=== PATIENT | male | born 1930 | race Caucasian/White ===

== ENCOUNTER 2017-06-18 22:25 | Inpatient (IN) | payer MEDICARE ==
[~2017-06-18] VITALS: Ht 157.5 cm; Wt 51.4 kg
--- NOTE | 2017-06-18 22:36 | PHYS DOC ---
Past History Past Medical History: Dementia Additional Past Medical Histor: Pulmonary HTN; Cardiac arrhythmia Social History Narrative: Born in [place] Social History Lives at [facility]) under the care of Johny Britt DO; Neurologist Mo Horn DO and Nailhead Setter Ashlyn Tom MD: Code status- DNR Adult General HPI HPI Patient is a 86 year old male who presents with increased agitation. He resides at [facility] with a diagnosis of dementia. Became more disruptive. Transferred here for geriatric psych evaluation and treatment. Review of Systems Review of Systems Unable to obtain secondary to dementia and limited verbal response Physical Exam Physical Exam Constitutional: Well developed, well nourished, no acute distress, non-toxic appearance. Yelling out monsyllablic words and yelling "hold it." HENT: Normocephalic, atraumatic, bilateral external ears normal, oropharynx moist, no oral exudates, nose normal. Eyes: PERRLA, EOMI, conjunctiva normal, no discharge. Neck: Normal range of motion, no tenderness, supple, no stridor. Cardiovascular:Heart rate regular rhythm, no murmur Lungs & Thorax: Bilateral breath sounds clear to auscultation Abdomen: Bowel sounds normal, soft, no tenderness, no masses, no pulsatile masses. Skin: Warm, dry, no erythema, no rash. Back: No tenderness, no CVA tenderness. Extremities: No tenderness, no cyanosis, no clubbing, ROM intact, no edema. Neurologic: Alert, normal motor function, normal sensory function, no focal deficits noted. Current Patient Data Vital Signs Laboratory Tests Test 06/18/17 22:49 White Blood Count 8.7 x10^3/uL (4.0-11.0) Red Blood Count 3.78 x10^6/uL (4.30-5.70) Hemoglobin 11.8 g/dL (13.0-17.5) Hematocrit 36.0 % (39.0-53.0) Mean Corpuscular Volume 95 fL (79-100) Mean Corpuscular Hemoglobin 31 pg (25-35) Mean Corpuscular Hemoglobin Concent 33 g/dL (31-37) Red Cell Distribution Width 15.2 % (11.5-14.5) Platelet Count 260 x10^3/uL (140-400) Neutrophils (%) (Auto) 73 % (31-73) Lymphocytes (%) (Auto) 19 % (24-48) Monocytes (%) (Auto) 7 % (0-9) Eosinophils (%) (Auto) 1 % (0-3) Basophils (%) (Auto) 1 % (0-3) Neutrophils # (Auto) 6.4 x10^3uL (1.8-7.7) Lymphocytes # (Auto) 1.6 x10^3/uL (1.0-4.8) Monocytes # (Auto) 0.6 x10^3/uL (0.0-1.1) Eosinophils # (Auto) 0.1 x10^3/uL (0.0-0.7) Basophils # (Auto) 0.0 x10^3/uL (0.0-0.2) Urine Collection Type Unknown Urine Color Yellow Urine Clarity Clear Urine pH 6.5 Urine Specific [place] 1.015 Urine Protein 30 mg/dl (NEG-TRACE) Urine Glucose (UA) Neg mg/dL (NEG) Urine Ketones (Stick) Neg mg/dL (NEG) Urine Blood Neg (NEG) Urine Nitrite Neg (NEG) Urine Bilirubin Neg (NEG) Urine Urobilinogen Dipstick 1 mg/dL (0.2 mg/dL) Urine Leukocyte Esterase Neg (NEG) Urine RBC 0 /HPF (0-2) Urine WBC 5-10 /HPF (0-4) Urine Squamous Epithelial Cells Occ /LPF Urine Bacteria Few /HPF (0-FEW) Sodium Level 144 mmol/L (136-145) Potassium Level 4.3 mmol/L (3.5-5.1) Chloride Level 108 mmol/L (98-107) Carbon Dioxide Level 27 mmol/L (21-32) Anion Gap 9 (6-14) Blood Urea Nitrogen 36 mg/dL (8-26) Creatinine 1.4 mg/dL (0.7-1.3) Estimated GFR (Cockcroft-Gault) 48.3 BUN/Creatinine Ratio 26 (6-20) Glucose Level 111 mg/dL (70-99) Calcium Level 8.9 mg/dL (8.5-10.1) Magnesium Level 2.3 mg/dL (1.8-2.4) Total Bilirubin 0.4 mg/dL (0.2-1.0) Aspartate Amino Transf (AST/SGOT) 16 U/L (15-37) Alanine Aminotransferase (ALT/SGPT) 20 U/L (16-63) Alkaline Phosphatase 72 U/L (46-116) Total Protein 6.7 g/dL (6.4-8.2) Albumin 3.4 g/dL (3.4-5.0) Albumin/Globulin Ratio 1.0 (1.0-1.7) EKG EKG EKG interpreted by myself at 2247 PM: accelerated junctional at rate 123. RBBB; non specific ST changes. No prior to compare to. Course & Med Decision Making Course & Med Decision Making Evaluated patient. Lab reviewed and cleared for admission Dragon Disclaimer Dragon Disclaimer This chart was dictated in whole or in part using Voice Recognition software in a busy, high-work load, and often noisy Emergency Department environment. It may contain unintended and wholly unrecognized errors or omissions. Departure Departure: Impression: Primary Impression: Disruptive behavior Additional Impression: Dementia Disposition: 09 ADMITTED INPATIENT Referrals: ZEN BRITT DO (PCP) Problem Qualifiers Additional Impression: Dementia Dementia type: unspecified type Dementia behavioral disturbance: with behavioral disturbance Qualified Codes: F03.91 - Unspecified dementia with behavioral disturbance DIANE BOTELLO MD Jun 18, 2017 22:36
--- NOTE | 2017-06-18 23:09 | EKG ---
[address] [address] Test Date: 2017-06-18 Test Time: 22:47:14 Pat Name: ASHLEY RIVERA Department: Room: Gender: M Educational Resource Coordinator: ADONIS : 1930 Requested By: DIANE BOTELLO Order Number: [id number] Reading MD: Darwin Rios Measurements Intervals [place] Rate: 123 P: OR: QRS: -58 QRSD: 124 T: 22 QT: 338 QTc: 490 Interpretive Statements JUNCTIONAL RHYTHM - TACHYCARDIA RBBB POSSIBLE FLUTTER Electronically Signed On 06-19-2017 9:24:35 CDT by Darwin Rios
[2017-06-18 23:13] LABS: BASO % 1 % (0-3); EOS # 0.1 x10^3/uL (0.0-0.7); EOS % 1 % (0-3); HEMOGLOBIN 11.8 g/dL (13.0-17.5); LYMPH # 1.6 x10^3/uL (1.0-4.8); LYMPH % 19 % (24-48); MEAN CORPUSCULAR HEMOGLOBIN 31 pg (25-35); MEAN CORPUSCULAR HGB CONC 33 g/dL (31-37); MEAN CORPUSCULAR VOLUME 95 fL (79-100); MONO # 0.6 x10^3/uL (0.0-1.1); MONO % 7 % (0-9); NEUT # 6.4 x10^3uL (1.8-7.7); NEUT % 73 % (31-73); PLATELET COUNT 260 x10^3/uL (140-400); RED BLOOD COUNT 3.78 x10^6/uL (4.30-5.70); RED CELL DISTRIBUTION WIDTH 15.2 % (11.5-14.5); WHITE BLOOD COUNT 8.7 x10^3/uL (4.0-11.0)
[2017-06-18 23:25] LABS: BACTERIA,URINE FEW /HPF (0-FEW); BILIRUBIN,URINE NEG (NEG); CLARITY,URINE CLEAR; COLOR,URINE YELLOW; GLUCOSE,URINE NEG (NEG); NITRITE,URINE NEG (NEG); RBC,URINE 0 /HPF (0-2); SQUAMOUS EPITHELIAL CELL,UR OCC /LPF; UROBILINOGEN,URINE 1 mg/dL (0.2 mg/dL)
[2017-06-18 23:27] LABS: ALBUMIN 3.4 g/dL (3.4-5.0); CALCIUM 8.9 mg/dL (8.5-10.1); CREATININE 1.4 mg/dL (0.7-1.3); GFR 48.3; MAGNESIUM 2.3 mg/dL (1.8-2.4); POTASSIUM 4.3 mmol/L (3.5-5.1); TOTAL BILIRUBIN 0.4 mg/dL (0.2-1.0); TOTAL PROTEIN 6.7 g/dL (6.4-8.2)
[2017-06-18] MEDS ORDERED: FLEC50TA PO (23:59)
[2017-06-18] MEDS ORDERED: QUET100T4 PO (23:59)
[2017-06-18] MEDS ORDERED: MEGE40TA PO (23:59)
[2017-06-18] MEDS ORDERED: MEMA28CA PO (23:59)
[2017-06-18] MEDS ORDERED: ACET325T9 PO (23:59)
[2017-06-18] MEDS ORDERED: DONE10TA61 PO (23:59)
[2017-06-18] MEDS ORDERED: MULT-638 PO (23:59)
[2017-06-18] MEDS ORDERED: FINA5TAB PO (23:59)
[2017-06-18] MEDS ORDERED: QUET25TA5 PO (23:59)
[2017-06-18] MEDS ORDERED: LORA0.5T96 PO ×2 (23:59)
[2017-06-18] MEDS ORDERED: MIRT15TA PO (23:59)
[2017-06-19] MEDS ORDERED: METHYL SALICYLATE/MENTHOL TOPICAL OINTMENT 29GM TUBE. TP PRN (00:30)
[2017-06-19] MEDS ORDERED: MAG HYDROX/AL HYDROX/SIMETH 30 ML ORAL.SUSP PO PRN (00:30)
[2017-06-19 00:55] VITALS: BP 137/79
[2017-06-19] MEDS: ACETAMINOPHEN 325 MG TABLET PO SCH ×5 (09:00→19:23)
[2017-06-19] MEDS: MULTIVITAMIN with MINERAL TABLET. PO SCH ×2 (09:00→10:14)
[2017-06-19] MEDS: FINASTERIDE 5 MG TABLET PO SCH (10:11)
[2017-06-19] MEDS: FLECAINIDE 50 MG TABLET. PO SCH ×2 (10:12→19:39)
[2017-06-19] MEDS: MEMANTINE 10 MG TABLET. PO SCH ×2 (10:13→19:23)
[2017-06-19] MEDS: LORazepam 0.5 MG TABLET PO SCH (10:13)
[2017-06-19] MEDS: QUEtiapine 25 MG TABLET. PO SCH ×2 (10:14→14:00)
[2017-06-19] MEDS: MEGESTROL 40 MG TABLET. PO SCH ×2 (10:14→19:23)
[2017-06-19 14:16] LABS: THYROID STIM HORMONE (TSH) 2.429 uIU/mL (0.358-3.740)
[2017-06-19 15:47] VITALS: BP 109/60
[2017-06-19 18:10] LABS: T3 TOTAL 73 ng/dL (71-180)
[2017-06-19] MEDS: QUEtiapine 100 MG TABLET. PO SCH (19:40)
[2017-06-19] MEDS: DONEPEZIL HCL 10 MG TABLET PO SCH (19:40)
[2017-06-19] MEDS: MIRTAZAPINE 15 MG TABLET PO SCH (19:40)
--- NOTE | 2017-06-19 19:44 | PDOC ---
Exam Evan Demential Exam: Evan Note: Please also refer to the separate dictated note~for this date of service dictated separately.~Patient seen individually. Discussed the patient with Nursing staff reviewed the chart.~Reviewed interim history and current functioning. Reviewed vital signs,~Labs/ Radiology~and current medications noted below. Continue current treatment with the changes noted in the dictated addendum note Assessment: Vital Signs: Vital Signs Date Time Temp Pulse Resp B/P (MAP) Pulse Ox O2 Delivery O2 Flow Rate FiO2 06/19/17 15:47 97.6 95 17 109/60 (76) 98 06/19/17 00:55 Room Air I&O Intake and Output 06/20/17 07:00 Intake Total 360 ml Balance 360 ml Intake Oral 360 ml Labs: Laboratory Tests Test 06/18/17 22:49 White Blood Count 8.7 x10^3/uL (4.0-11.0) Red Blood Count 3.78 x10^6/uL (4.30-5.70) L Hemoglobin 11.8 g/dL (13.0-17.5) L Hematocrit 36.0 % (39.0-53.0) L Mean Corpuscular Volume 95 fL (79-100) Mean Corpuscular Hemoglobin 31 pg (25-35) Mean Corpuscular Hemoglobin Concent 33 g/dL (31-37) Red Cell Distribution Width 15.2 % (11.5-14.5) H Platelet Count 260 x10^3/uL (140-400) Neutrophils (%) (Auto) 73 % (31-73) Lymphocytes (%) (Auto) 19 % (24-48) L Monocytes (%) (Auto) 7 % (0-9) Eosinophils (%) (Auto) 1 % (0-3) Basophils (%) (Auto) 1 % (0-3) Neutrophils # (Auto) 6.4 x10^3uL (1.8-7.7) Lymphocytes # (Auto) 1.6 x10^3/uL (1.0-4.8) Monocytes # (Auto) 0.6 x10^3/uL (0.0-1.1) Eosinophils # (Auto) 0.1 x10^3/uL (0.0-0.7) Basophils # (Auto) 0.0 x10^3/uL (0.0-0.2) Urine Collection Type Unknown Urine Color Yellow Urine Clarity Clear Urine pH 6.5 Urine Specific [place] 1.015 Urine Protein 30 mg/dl (NEG-TRACE) Urine Glucose (UA) Neg mg/dL (NEG) Urine Ketones (Stick) Neg mg/dL (NEG) Urine Blood Neg (NEG) Urine Nitrite Neg (NEG) Urine Bilirubin Neg (NEG) Urine Urobilinogen Dipstick 1 mg/dL (0.2 mg/dL) Urine Leukocyte Esterase Neg (NEG) Urine RBC 0 /HPF (0-2) Urine WBC 5-10 /HPF (0-4) Urine Squamous Epithelial Cells Occ /LPF Urine Bacteria Few /HPF (0-FEW) Sodium Level 144 mmol/L (136-145) Potassium Level 4.3 mmol/L (3.5-5.1) Chloride Level 108 mmol/L (98-107) H Carbon Dioxide Level 27 mmol/L (21-32) Anion Gap 9 (6-14) Blood Urea Nitrogen 36 mg/dL (8-26) H Creatinine 1.4 mg/dL (0.7-1.3) H Estimated GFR (Cockcroft-Gault) 48.3 BUN/Creatinine Ratio 26 (6-20) H Glucose Level 111 mg/dL (70-99) H Calcium Level 8.9 mg/dL (8.5-10.1) Magnesium Level 2.3 mg/dL (1.8-2.4) Iron Level 50 ug/dL (65-175) L Total Iron Binding Capacity 273 ug/dL (250-450) Iron Saturation 18 % (15-34) Total Bilirubin 0.4 mg/dL (0.2-1.0) Aspartate Amino Transferase (AST) 16 U/L (15-37) Alanine Aminotransferase (ALT) 20 U/L (16-63) Alkaline Phosphatase 72 U/L (46-116) Total Protein 6.7 g/dL (6.4-8.2) Albumin 3.4 g/dL (3.4-5.0) Albumin/Globulin Ratio 1.0 (1.0-1.7) Vitamin B12 Level 466 pg/mL (247-911) Thyroxine (T4) 5.0 ug/dL (4.5-12.0) Total Triiodothyronine (TT3) 73 ng/dL (71-180) RPR Titer Additional Testing Pending Current Medications: Meds: Current Medications Multi-Ingredient Ointment (Analgesic [place]) 1 talya PRN QID PRN TP MUSCLE PAIN; Start 06/19/17 at 00:30 Al Hydroxide/Mg Hydroxide (Mylanta Plus Xs) 15 ml PRN AFTMEALHC PRN PO DYSPEPSIA; Start 06/19/17 at 00:30 Magnesium Hydroxide (Milk Of Magnesia) 2,400 mg PRN QHS PRN PO CONSTIPATION; Start 06/19/17 at 00:30 Donepezil HCl (Aricept) 20 mg QHS PO ; Start 06/19/17 at 21:00 Lorazepam (Ativan) 0.5 mg DAILY PO Last administered on 06/19/17 10:13; Start 06/19/17 at 09:00 Lorazepam (Ativan) 0.5 mg PRN Q6HRS PRN PO ANXIETY / AGITATION; Start 06/19/17 at 00:30 Megestrol Acetate (Megace) 40 mg BID PO Last administered on 06/19/17 19:23; Start 06/19/17 at 09:00 Mirtazapine (Remeron) 15 mg QHS PO ; Start 06/19/17 at 21:00 Quetiapine Fumarate (SEROquel) 25 mg BID92 PO Last administered on 06/19/17 10 :14; Start 06/19/17 at 09:00 Quetiapine Fumarate (SEROquel) 100 mg QHS PO ; Start 06/19/17 at 21:00 Memantine (Namenda) 10 mg BID PO Last administered on 06/19/17 19:23; Start at 09:00 Acetaminophen (Tylenol) 650 mg TID PO Last administered on 06/19/17 19:23; Start 06/19/17 at 09:00 Finasteride (Proscar) 5 mg DAILY PO Last administered on 06/19/17 10:11; Start 06/19/17 at 09:00 Flecainide Acetate (Tambocor) 50 mg BID PO Last administered on 06/19/17 10:12 ; Start 06/19/17 at 09:00 Multivitamins/ Calcium (Thera-M Plus) 1 tab DAILY PO ; Start 06/19/17 at 09:00 Olanzapine (ZyPREXA ZYDIS) 2.5 mg PRN Q2HR PRN PO PSYCHOSIS; Start 06/19/17 at 18:30 Active Scripts Active Reported Seroquel (Quetiapine Fumarate) 100 Mg Tablet 100 Mg PO QHS Seroquel (Quetiapine Fumarate) 25 Mg Tablet 25 Mg PO BID92 Thera M Plus Tablet (Multivits,Ca,Minerals/Iron/FA) 1 Each Tablet 1 Tab PO DAILY Remeron (Mirtazapine) 15 Mg Tablet 15 Mg PO QHS Namenda Xr (Memantine Hcl) 28 Mg Cap.spr.24 28 Mg PO DAILY Flecainide Acetate 50 Mg Tablet 50 Mg PO BID Proscar (Finasteride) 5 Mg Tablet 5 Mg PO DAILY Aricept (Donepezil Hcl) 10 Mg Tablet 20 Mg PO QHS Ativan (Lorazepam) 0.5 Mg Tablet 0.5 Mg PO DAILY Ativan (Lorazepam) 0.5 Mg Tablet 0.5 Mg PO PRN Q6HRS PRN Megestrol Acetate 40 Mg Tablet 40 Mg PO BID Tylenol (Acetaminophen) 325 Mg Tablet 650 Mg PO TID Diagnosis: Problems: (1) Dementia (2) Disruptive behavior TONE SHABAZZ MD Jun 19, 2017 19:44
[2017-06-20 03:13] LABS: HEMOGLOBIN A1C 5.8 % (4.8-5.6)
--- NOTE | 2017-06-20 04:54 | CONS ---
DATE OF CONSULTATION: REASON FOR CONSULTATION: Medical management. HISTORY OF PRESENT ILLNESS: This is an 86-year-old male patient, a resident at [facility] who was referred [facility] on account of increased agitation. He is becoming more aggressive, disruptive in the background of dementia and was admitted for inpatient psychiatric stabilization. PAST MEDICAL HISTORY: Significant for benign prostatic hypertrophy, atrial fibrillation, hyperlipidemia, chronic kidney disease, pulmonary hypertension. PAST SURGICAL HISTORY: Unobtainable. FAMILY HISTORY: Unobtainable. SOCIAL HISTORY: Unobtainable except that he is a resident at [facility]. He apparently does not smoke, drink alcohol or use recreational drugs. ALLERGIES: HE IS ALLERGIC TO AMIODARONE. MEDICATIONS: He is currently on acetaminophen 650 mg 3 times a day, Aricept 20 mg at bedtime, finasteride, Proscar 5 mg once a day, flecainide acetate 50 mg twice a day, lorazepam 0.5 mg every 6 hours daily as scheduled. He is on Megace 40 mg p.o. b.i.d., Namenda XR 28 mg once a day, mirtazapine 15 mg at bedtime, multivitamin with mineral 1 tablet once a day, Seroquel 25 mg twice a day, and Seroquel 100 mg at bedtime. PHYSICAL EXAMINATION: GENERAL: On examining him, he was resting, slightly propped up in bed, in no apparent respiratory distress, cachectic with a body mass index of only 19.8, slightly pale, but no jaundice, cyanosis or thyromegaly. No jugular venous distension. No lower limb edema. VITAL SIGNS: His heart rate was 95, blood pressure was 109/60, temperature was 97.6, respiratory rate was 17 and oxygen saturation was 98%. HEAD: Showed normocephalic, atraumatic. NECK: Supple. HEART: Showed normal first and second heart sounds. No gallop, rub or murmur. CHEST: Clear to auscultation. No crepitation or rhonchi. ABDOMEN: Scaphoid, soft, nontender. NEUROLOGIC: He is demented without any obvious lateralizing sign. All his cranial nerves are intact. EXTREMITIES: He moves extremities without difficulty, ambulates without assistance or assistive devices. LABORATORY DATA: Showed a white cell count of 8700, hemoglobin 11.8, hematocrit 36, MCV 95 and platelet count 260,000. His serum sodium was 144, potassium 4.3, chloride 108, bicarbonate 27, anion gap of 9, BUN 36, creatinine 1.4, estimated GFR was 48 mL per minute. His glucose 111, calcium was 8.9, magnesium was 2.3. Serum iron 50, TIBC was 273 and percent saturation was 18%. Total bilirubin, AST, ALT, alkaline phosphatase were normal. Total protein was 6.7, albumin 3.4. His serum triglycerides were high at 217, cholesterol was 203, LDL was 122, VLDL was 43, HDL was 38 and the ratio was 5. His vitamin B12 was 566 picogram per mL and TSH was 2.429. Urinalysis showed the urine was yellow, clear with a pH of 6.5, specific gravity of 1.015, with a trace of protein. The urine was negative for glucose, ketones, blood, nitrite, bilirubin and leukocyte esterase. There was only 5-10 wbc, very few bacteria. IMPRESSION: In summary, this is an 86-year-old male patient, a resident at [facility] who was admitted with increasing aggressive behavior, getting agitated, disruptive in the background of dementia and who was admitted here for inpatient psychiatric stabilization. He has multiple medical problems including benign prostatic hypertrophy, cardiac arrhythmia, chronic kidney disease, hyperlipidemia. His vital signs are all stable as well as his lab work and all in all medically he seemed to be stable. I will obviously continue with all his current medication. I will review all the lab work that are still pending at the time of this dictation and make any necessary recommendation. Thank you, Dr. Downing for allowing me to participate in the care of this patient. LILI VALLE MD DR: BLAISE/alex JOB#: [id number] / [id number]
[2017-06-20] MEDS: ACETAMINOPHEN 325 MG TABLET PO SCH ×3 (09:36→19:23)
[2017-06-20] MEDS: FINASTERIDE 5 MG TABLET PO SCH (09:36)
[2017-06-20] MEDS: MULTIVITAMIN with MINERAL TABLET. PO SCH (09:36)
[2017-06-20] MEDS: MEGESTROL 40 MG TABLET. PO SCH ×2 (09:36→19:21)
[2017-06-20] MEDS: MEMANTINE 10 MG TABLET. PO SCH ×2 (09:36→19:20)
[2017-06-20] MEDS: QUEtiapine 25 MG TABLET. PO SCH ×2 (09:36→14:00)
[2017-06-20] MEDS: LORazepam 0.5 MG TABLET PO SCH (09:36)
[2017-06-20 09:44] VITALS: BP 114/67
[2017-06-20] MEDS: FLECAINIDE 50 MG TABLET. PO SCH ×2 (09:45→20:05)
--- NOTE | 2017-06-20 11:09 | HP ---
ADMIT DATE: 06/19/2017 This is a late entry for date of service 06/19/2017 and covers elements not covered in my initial note of 06/19/2017: The patient was seen individually evening of 06/19/2017 for this evaluation. Discussed with nursing staff, reviewed the chart and previously I discussed with nursing staff on two separate occasions after we received the referral from [facility] referring the patient for inpatient psychiatric care for his agitation, aggression, confusion within the context of his dementia. He was referred by his primary care physician, Dr. Jsoe Booth. IDENTIFYING DATA: As stated, the patient is an 86-year-old male, referred to us from [facility] by Dr. Jose Booth, his primary care physician on account of increased agitation, confusion, hitting staff. Reportedly, the patient is oriented x 1, resistive with care, threatening other peers. He recently failed an inpatient psychiatric hospitalization at [facility], but the family was not happy with his care there, did not want him returning there, therefore referred to us for inpatient psychiatric stabilization. CHIEF COMPLAINT: "No" The patient is not verbally interactive at all, quite confused, lying in bed, oriented just to himself, irritable, striking out at staff shortly prior to my visit with him. HISTORY OF PRESENT ILLNESS: The patient has a history of dementia, Alzheimer's vascular type. He has been residing at [facility] some time, more recently getting increasingly agitated, aggressive, disruptive, psychotic, both with peers and staff. He has had sleep and appetite changes. He was hospitalized at [facility], reportedly Seroquel was adjusted, but he has failed all of this, thus resulting in this referral back to us. No clear history of bipolar disorder, suicidal or homicidal ideation. PAST PSYCHIATRIC HISTORY: Major neurocognitive disorder, Alzheimer, vascular with depression, delusion, behavioral disturbance; anxiety disorder, unspecified; impulse control disorder, unspecified. PAST MEDICAL HISTORY: Hypertension, BPH, cardiac dysrhythmia, pacemaker in place, diabetes mellitus, skin cancer, orthostatic hypotension. PAST SURGICAL HISTORY: TURP. DIET: Regular. CODE STATUS: DNR. ALLERGIES: AMIODARONE. CURRENT PSYCHOTROPICS: Remeron 15 mg at bedtime, Ativan 0.5 mg daily p.r.n. q. 6 hours, Aricept 20 mg a day, Namenda 10 mg b.i.d., Seroquel 25 mg b.i.d. and 100 mg at bedtime, Megace 40 mg daily. FAMILY HISTORY: Noncontributory. SOCIAL HISTORY: No alcohol, drug abuse, physical, sexual or elder abuse history is noted. Not known to be a perpetrator. Reaction to hospitalization, the patient oblivious of this asset, stable living at the above facility, reasonably healthy given his age despite his worsening confusion. MENTAL STATUS EXAMINATION: The patient was seen individually in his room the evening of 06/19/2017. He is oriented to himself. Insight, judgment, recent and remote memory, attention, concentration, fund of knowledge poor, consistent with his diagnosis. He is not verbally interactive but appears paranoid, suspicious, striking out as I met with him and previously striking out at nursing staff. VITAL SIGNS: As mentioned in my initial note. REVIEW OF SYSTEMS: No CV, , pulmonary, eye, ENT system symptoms on review. Reliability poor. IMPRESSION: Major neurocognitive disorder, Alzheimer, vascular with depression, delusion, behavioral disturbance; anxiety disorder, unspecified; impulse control disorder, unspecified. Rest diagnoses as noted above. PLAN: Admit to the geropsychiatry unit at [facility]. I will see the patient daily individually from a psychiatric standpoint, observe the patient's baseline and request medical followup with Dr. Brown/Dr. Vasquez, make further adjustments in the psychotropics depending on baseline assessment. We will add Zyprexa p.r.n. for now. TONE SHABAZZ MD DR: RAYMUNDO/alex JOB#: [id number] / [id number]
[2017-06-20 16:11] VITALS: BP 97/58
[2017-06-20] MEDS: QUEtiapine 100 MG TABLET. PO SCH (19:20)
[2017-06-20] MEDS: MIRTAZAPINE 15 MG TABLET PO SCH (19:20)
[2017-06-20] MEDS: DONEPEZIL HCL 10 MG TABLET PO SCH (19:21)
--- NOTE | 2017-06-20 19:50 | PDOC ---
Exam Evan Demential Exam: Evan Note: Please also refer to the separate dictated note~for this date of service dictated separately.~Patient seen individually. Discussed the patient with Nursing staff reviewed the chart.~Reviewed interim history and current functioning. Reviewed vital signs,~Labs/ Radiology~and current medications noted below. Continue current treatment with the changes noted in the dictated addendum note Assessment: Vital Signs: Vital Signs Date Time Temp Pulse Resp B/P (MAP) Pulse Ox O2 Delivery O2 Flow Rate FiO2 06/20/17 16:11 97.7 57 20 97/58 (71) 93 06/19/17 00:55 Room Air I&O Intake and Output 06/21/17 07:00 Intake Total 600 ml Balance 600 ml Intake Oral 600 ml Current Medications: Meds: Current Medications Multi-Ingredient Ointment (Analgesic [place]) 1 talya PRN QID PRN TP MUSCLE PAIN; Start 06/19/17 at 00:30 Al Hydroxide/Mg Hydroxide (Mylanta Plus Xs) 15 ml PRN AFTMEALHC PRN PO DYSPEPSIA; Start 06/19/17 at 00:30 Magnesium Hydroxide (Milk Of Magnesia) 2,400 mg PRN QHS PRN PO CONSTIPATION; Start 06/19/17 at 00:30 Donepezil HCl (Aricept) 20 mg QHS PO Last administered on 06/20/17 19:21; Start 06/19/17 at 21:00 Lorazepam (Ativan) 0.5 mg DAILY PO Last administered on 06/20/17 09:36; Start 06/19/17 at 09:00 Lorazepam (Ativan) 0.5 mg PRN Q6HRS PRN PO ANXIETY / AGITATION; Start 06/19/17 at 00:30 Megestrol Acetate (Megace) 40 mg BID PO Last administered on 06/20/17 19:21; Start 06/19/17 at 09:00 Mirtazapine (Remeron) 15 mg QHS PO Last administered on 06/20/17 19:20; Start 06/19/17 at 21:00 Quetiapine Fumarate (SEROquel) 25 mg BID92 PO Last administered on 06/20/17 14 :00; Start 06/19/17 at 09:00; Stop 06/20/17 at 18:26; Status DC Quetiapine Fumarate (SEROquel) 100 mg QHS PO Last administered on 06/20/17 19: 20; Start 06/19/17 at 21:00 Memantine (Namenda) 10 mg BID PO Last administered on 06/20/17 19:20; Start at 09:00 Acetaminophen (Tylenol) 650 mg TID PO Last administered on 06/20/17 19:23; Start 06/19/17 at 09:00 Finasteride (Proscar) 5 mg DAILY PO Last administered on 06/20/17 09:36; Start 06/19/17 at 09:00 Flecainide Acetate (Tambocor) 50 mg BID PO Last administered on 06/20/17 09:45 ; Start 06/19/17 at 09:00 Multivitamins/ Calcium (Thera-M Plus) 1 tab DAILY PO Last administered on 09:36; Start 06/19/17 at 09:00 Olanzapine (ZyPREXA ZYDIS) 2.5 mg PRN Q2HR PRN PO PSYCHOSIS Last administered on 06/19/17 19:40; Start 06/19/17 at 18:30 Quetiapine Fumarate (SEROquel) 25 mg TID@0900,1300,1700 PO ; Start 06/21/17 at 09:00 Active Scripts Active Reported Seroquel (Quetiapine Fumarate) 100 Mg Tablet 100 Mg PO QHS Seroquel (Quetiapine Fumarate) 25 Mg Tablet 25 Mg PO BID92 Thera M Plus Tablet (Multivits,Ca,Minerals/Iron/FA) 1 Each Tablet 1 Tab PO DAILY Remeron (Mirtazapine) 15 Mg Tablet 15 Mg PO QHS Namenda Xr (Memantine Hcl) 28 Mg Cap.spr.24 28 Mg PO DAILY Flecainide Acetate 50 Mg Tablet 50 Mg PO BID Proscar (Finasteride) 5 Mg Tablet 5 Mg PO DAILY Aricept (Donepezil Hcl) 10 Mg Tablet 20 Mg PO QHS Ativan (Lorazepam) 0.5 Mg Tablet 0.5 Mg PO DAILY Ativan (Lorazepam) 0.5 Mg Tablet 0.5 Mg PO PRN Q6HRS PRN Megestrol Acetate 40 Mg Tablet 40 Mg PO BID Tylenol (Acetaminophen) 325 Mg Tablet 650 Mg PO TID Diagnosis: Problems: (1) Dementia (2) Disruptive behavior (3) Anxiety disorder (4) Dementia, vascular, with delusions (5) Dementia, vascular, with depression (6) Dementia in Alzheimer's disease with delusions (7) Dementia in Alzheimer's disease with depression (8) Impulse control disorder TONE SHABAZZ MD Jun 20, 2017 19:50
[2017-06-21 06:05] VITALS: BP 139/82
[2017-06-21] MEDS: QUEtiapine 25 MG TABLET. PO SCH ×4 (09:00→17:03)
[2017-06-21] MEDS: MULTIVITAMIN with MINERAL TABLET. PO SCH ×2 (09:00→09:59)
[2017-06-21] MEDS: MEMANTINE 10 MG TABLET. PO SCH ×3 (09:00→19:32)
[2017-06-21] MEDS: ACETAMINOPHEN 325 MG TABLET PO SCH ×4 (09:00→19:34)
[2017-06-21] MEDS: FLECAINIDE 50 MG TABLET. PO SCH ×2 (09:00→19:33)
[2017-06-21] MEDS: FINASTERIDE 5 MG TABLET PO SCH ×2 (09:00→09:59)
[2017-06-21] MEDS: MEGESTROL 40 MG TABLET. PO SCH ×3 (09:00→19:32)
[2017-06-21] MEDS: LORazepam 0.5 MG TABLET PO SCH (10:00)
[2017-06-21] MEDS: MIRTAZAPINE 15 MG TABLET PO SCH (19:32)
[2017-06-21] MEDS: QUEtiapine 100 MG TABLET. PO SCH (19:32)
[2017-06-21] MEDS: DONEPEZIL HCL 10 MG TABLET PO SCH (19:32)
[2017-06-21] MEDS: MAGNESIUM HYDROXIDE 2,400 MG/30 ML ORAL.SUSP. PO PRN (19:34)
--- NOTE | 2017-06-21 19:49 | PDOC ---
Exam Evan Demential Exam: Evan Note: Please also refer to the separate dictated note~for this date of service dictated separately.~Patient seen individually. Discussed the patient with Nursing staff reviewed the chart.~Reviewed interim history and current functioning. Reviewed vital signs,~Labs/ Radiology~and current medications noted below. Continue current treatment with the changes noted in the dictated addendum note Assessment: Vital Signs: Vital Signs Date Time Temp Pulse Resp B/P (MAP) Pulse Ox O2 Delivery O2 Flow Rate FiO2 06/21/17 19:33 57 139/82 06/21/17 06:05 97.2 24 06/20/17 16:11 93 06/19/17 00:55 Room Air I&O Intake and Output 06/22/17 06:59 Intake Total 240 ml Balance 240 ml Intake Oral 240 ml # Bowel Movements 1 Current Medications: Meds: Current Medications Multi-Ingredient Ointment (Analgesic [place]) 1 talya PRN QID PRN TP MUSCLE PAIN; Start 06/19/17 at 00:30 Al Hydroxide/Mg Hydroxide (Mylanta Plus Xs) 15 ml PRN AFTMEALHC PRN PO DYSPEPSIA; Start 06/19/17 at 00:30 Magnesium Hydroxide (Milk Of Magnesia) 2,400 mg PRN QHS PRN PO CONSTIPATION Last administered on 06/21/17 19:34; Start 06/19/17 at 00:30 Donepezil HCl (Aricept) 20 mg QHS PO Last administered on 06/21/17 19:32; Start 06/19/17 at 21:00 Lorazepam (Ativan) 0.5 mg DAILY PO Last administered on 06/21/17 10:00; Start 06/19/17 at 09:00 Lorazepam (Ativan) 0.5 mg PRN Q6HRS PRN PO ANXIETY / AGITATION; Start 06/19/17 at 00:30 Megestrol Acetate (Megace) 40 mg BID PO Last administered on 06/21/17 19:32; Start 06/19/17 at 09:00 Mirtazapine (Remeron) 15 mg QHS PO Last administered on 06/21/17 19:32; Start 06/19/17 at 21:00 Quetiapine Fumarate (SEROquel) 25 mg BID92 PO Last administered on 06/20/17 14 :00; Start 06/19/17 at 09:00; Stop 06/20/17 at 18:26; Status DC Quetiapine Fumarate (SEROquel) 100 mg QHS PO Last administered on 06/21/17 19: 32; Start 06/19/17 at 21:00 Memantine (Namenda) 10 mg BID PO Last administered on 06/21/17 19:32; Start at 09:00 Acetaminophen (Tylenol) 650 mg TID PO Last administered on 06/21/17 19:34; Start 06/19/17 at 09:00 Finasteride (Proscar) 5 mg DAILY PO Last administered on 06/20/17 09:36; Start 06/19/17 at 09:00 Flecainide Acetate (Tambocor) 50 mg BID PO Last administered on 06/21/17 19:33 ; Start 06/19/17 at 09:00 Multivitamins/ Calcium (Thera-M Plus) 1 tab DAILY PO Last administered on 09:36; Start 06/19/17 at 09:00 Olanzapine (ZyPREXA ZYDIS) 2.5 mg PRN Q2HR PRN PO PSYCHOSIS Last administered on 06/19/17 19:40; Start 06/19/17 at 18:30 Quetiapine Fumarate (SEROquel) 25 mg TID@0900,1300,1700 PO Last administered on 06/21/17 17:03; Start 06/21/17 at 09:00 Active Scripts Active Reported Seroquel (Quetiapine Fumarate) 100 Mg Tablet 100 Mg PO QHS Seroquel (Quetiapine Fumarate) 25 Mg Tablet 25 Mg PO BID92 Thera M Plus Tablet (Multivits,Ca,Minerals/Iron/FA) 1 Each Tablet 1 Tab PO DAILY Remeron (Mirtazapine) 15 Mg Tablet 15 Mg PO QHS Namenda Xr (Memantine Hcl) 28 Mg Cap.spr.24 28 Mg PO DAILY Flecainide Acetate 50 Mg Tablet 50 Mg PO BID Proscar (Finasteride) 5 Mg Tablet 5 Mg PO DAILY Aricept (Donepezil Hcl) 10 Mg Tablet 20 Mg PO QHS Ativan (Lorazepam) 0.5 Mg Tablet 0.5 Mg PO DAILY Ativan (Lorazepam) 0.5 Mg Tablet 0.5 Mg PO PRN Q6HRS PRN Megestrol Acetate 40 Mg Tablet 40 Mg PO BID Tylenol (Acetaminophen) 325 Mg Tablet 650 Mg PO TID Diagnosis: Problems: (1) Dementia (2) Anxiety disorder (3) Dementia, vascular, with delusions (4) Dementia, vascular, 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
--- NOTE | 2017-06-22 00:02 | PN ---
DATE: 06/20/2017 This late entry 06/20 covers elements not covered in my initial note of 06/20. SUBJECTIVE: The patient was seen individually evening of 06/20/2017 for this evaluation. He slept 8-3/4 hours previous evening, combative with cares, refused breakfast, oriented just to himself. REVIEW OF SYSTEMS: No CV, , pulmonary, eye, ENT system symptoms on review. Reliability poor. MENTAL STATUS EXAM: Oriented to himself. Insight, judgment, recent and remote memory, attention, concentration, fund of knowledge poor, consistent with his diagnosis mentioned in my initial note. PLAN: Increase Seroquel from 25 mg b.i.d., 100 mg at bedtime, to 25 mg 3 times a day 9 a.m. and 2 p.m. and 5 p.m. Continue 100 mg at bedtime. Maintain Remeron, Aricept, Namenda, Megace along with Zyprexa p.r.n. Adjust further as clinically indicated. Consider Depakote as a mood stabilizer. Review drug interactions risk/benefit ratio favors no further change as of now. MAN Madelin SHABAZZ MD DR: RAYMUNDO/alex JOB#: [id number] / [id number]
--- NOTE | 2017-06-22 00:40 | ACF ---
Admission Criteria Forms PSYCHIATRIC DISORDERS Clinical Indications for Inpatient Care (Place 'X' for any and all applicable criteria): Ongoing inpatient care may be needed for 1 or more of the following(1)(2)(3)(4)( 6)(7)(8): [ ]I. Danger to self or others not manageable at lower level of care. [ ]II. Grave disability (eg, inability to perform self care necessary at lower level of care) [ ]III. Agitation or inappropriate behavior interfering with care for primary condition (eg, attempting to discontinue lines or drains prematurely, unable to cooperate with respiratory care) [X ]IV. Severe disability or disorder indicated by ALL of the following: [ X]a) Severe behavioral health disorder-related symptoms or condition indicated by 1 or more of the following: [ ]i) Severe problem with cognition, memory, judgment, or impulse control [ X]ii) Severe clinical manifestations (eg, hallucinations , delusions, other acute psychotic symptoms, zeke, extreme agitation or anxiety) [X ]b) Patient management at lower level of care is not feasible until acute intervention or modification is initiated. Extended stay beyond goal length of stay for the primary condition may be needed untilALLof the following are present(1)(2)(3)(4)(722)(23): [ ]a) Danger to self or others is absent or manageable at lower level of care [ ]b) Behavior crisis management, including physical or chemical restraints, is required and is not available at a lower level of care. [ ]c) Behavioral symptoms (e.g., agitation, somnolence, inappropriate behavior) are present, and are not manageable at a lower level of care. [ ]d) Patient cannot understand follow-up treatment and crisis plan. [ ]e) Provider and supports are sufficiently available at lower level of care. [ ]f) Patient can participate (e.g., verify absence of plan for harm) and is in needed of monitoring. The original [facility] content created by [facility] has been revised. The portions of the content which have been revised are identified through the use of italic text, and [facility] has neither reviewed nor approved the modified material. All other unmodified content is copyright [facility]. Please see references footnoted in the original [facility] edition 2015 Admission Criteria Met?: Yes BERTHA WINTERS Jun 22, 2017 00:40
[2017-06-22] MEDS: FINASTERIDE 5 MG TABLET PO SCH (07:58)
[2017-06-22] MEDS: QUEtiapine 25 MG TABLET. PO SCH ×3 (07:58→17:22)
[2017-06-22] MEDS: MEGESTROL 40 MG TABLET. PO SCH ×2 (07:58→19:16)
[2017-06-22] MEDS: MULTIVITAMIN with MINERAL TABLET. PO SCH (07:58)
[2017-06-22] MEDS: ACETAMINOPHEN 325 MG TABLET PO SCH ×3 (07:58→19:16)
[2017-06-22] MEDS: MEMANTINE 10 MG TABLET. PO SCH ×2 (07:58→19:16)
[2017-06-22] MEDS: LORazepam 0.5 MG TABLET PO SCH (07:58)
[2017-06-22] MEDS: FLECAINIDE 50 MG TABLET. PO SCH ×2 (07:59→19:20)
[2017-06-22] MEDS: QUEtiapine 100 MG TABLET. PO SCH (19:16)
[2017-06-22] MEDS: DONEPEZIL HCL 10 MG TABLET PO SCH (19:16)
[2017-06-22] MEDS: MIRTAZAPINE 15 MG TABLET PO SCH (19:16)
--- NOTE | 2017-06-22 19:41 | PDOC ---
Exam Evan Demential Exam: Evan Note: Please also refer to the separate dictated note~for this date of service dictated separately.~Patient seen individually. Discussed the patient with Nursing staff reviewed the chart.~Reviewed interim history and current functioning. Reviewed vital signs,~Labs/ Radiology~and current medications noted below. Continue current treatment with the changes noted in the dictated addendum note Assessment: Vital Signs: Vital Signs Date Time Temp Pulse Resp B/P (MAP) Pulse Ox O2 Delivery O2 Flow Rate FiO2 06/22/17 19:20 57 139/82 06/21/17 06:05 97.2 24 06/20/17 16:11 93 06/19/17 00:55 Room Air I&O Intake and Output 06/23/17 07:00 Intake Total 1080 ml Balance 1080 ml Intake Oral 1080 ml Current Medications: Meds: Current Medications Multi-Ingredient Ointment (Analgesic [place]) 1 talya PRN QID PRN TP MUSCLE PAIN; Start 06/19/17 at 00:30 Al Hydroxide/Mg Hydroxide (Mylanta Plus Xs) 15 ml PRN AFTMEALHC PRN PO DYSPEPSIA; Start 06/19/17 at 00:30 Magnesium Hydroxide (Milk Of Magnesia) 2,400 mg PRN QHS PRN PO CONSTIPATION Last administered on 06/21/17 19:34; Start 06/19/17 at 00:30 Donepezil HCl (Aricept) 20 mg QHS PO Last administered on 06/22/17 19:16; Start 06/19/17 at 21:00 Lorazepam (Ativan) 0.5 mg DAILY PO Last administered on 06/22/17 07:58; Start 06/19/17 at 09:00 Lorazepam (Ativan) 0.5 mg PRN Q6HRS PRN PO ANXIETY / AGITATION; Start 06/19/17 at 00:30 Megestrol Acetate (Megace) 40 mg BID PO Last administered on 06/22/17 19:16; Start 06/19/17 at 09:00 Mirtazapine (Remeron) 15 mg QHS PO Last administered on 06/22/17 19:16; Start 06/19/17 at 21:00 Quetiapine Fumarate (SEROquel) 25 mg BID92 PO Last administered on 06/20/17 14 :00; Start 06/19/17 at 09:00; Stop 06/20/17 at 18:26; Status DC Quetiapine Fumarate (SEROquel) 100 mg QHS PO Last administered on 06/22/17 19: 16; Start 06/19/17 at 21:00 Memantine (Namenda) 10 mg BID PO Last administered on 06/22/17 19:16; Start at 09:00 Acetaminophen (Tylenol) 650 mg TID PO Last administered on 06/22/17 19:16; Start 06/19/17 at 09:00 Finasteride (Proscar) 5 mg DAILY PO Last administered on 06/22/17 07:58; Start 06/19/17 at 09:00 Flecainide Acetate (Tambocor) 50 mg BID PO Last administered on 06/22/17 19:20 ; Start 06/19/17 at 09:00 Multivitamins/ Calcium (Thera-M Plus) 1 tab DAILY PO Last administered on 07:58; Start 06/19/17 at 09:00 Olanzapine (ZyPREXA ZYDIS) 2.5 mg PRN Q2HR PRN PO PSYCHOSIS Last administered on 06/22/17 17:22; Start 06/19/17 at 18:30 Quetiapine Fumarate (SEROquel) 25 mg TID@0900,1300,1700 PO Last administered on 06/22/17 17:22; Start 06/21/17 at 09:00 Active Scripts Active Reported Seroquel (Quetiapine Fumarate) 100 Mg Tablet 100 Mg PO QHS Seroquel (Quetiapine Fumarate) 25 Mg Tablet 25 Mg PO BID92 Thera M Plus Tablet (Multivits,Ca,Minerals/Iron/FA) 1 Each Tablet 1 Tab PO DAILY Remeron (Mirtazapine) 15 Mg Tablet 15 Mg PO QHS Namenda Xr (Memantine Hcl) 28 Mg Cap.spr.24 28 Mg PO DAILY Flecainide Acetate 50 Mg Tablet 50 Mg PO BID Proscar (Finasteride) 5 Mg Tablet 5 Mg PO DAILY Aricept (Donepezil Hcl) 10 Mg Tablet 20 Mg PO QHS Ativan (Lorazepam) 0.5 Mg Tablet 0.5 Mg PO DAILY Ativan (Lorazepam) 0.5 Mg Tablet 0.5 Mg PO PRN Q6HRS PRN Megestrol Acetate 40 Mg Tablet 40 Mg PO BID Tylenol (Acetaminophen) 325 Mg Tablet 650 Mg PO TID Diagnosis: Problems: (1) Dementia (2) Disruptive behavior (3) Anxiety disorder (4) Dementia, vascular, with delusions (5) Dementia, vascular, 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
--- NOTE | 2017-06-23 04:12 | PN ---
DATE: 06/21/2017 This entry, date of service 06/21/2017, covers elements not covered in my initial note. SUBJECTIVE: The patient was staffed at treatment team meeting with the entire team morning of 06/21/2017, and the patient's , Shantelle, attended this conference as well. We had a lengthy discussion about the patient's history, progressive dementia, delusion, mood lability, fact that he may have a UTI. Culture is pending. He sleeps in the morning. Appetite is fair. I met with the patient individually evening of 06/21/2017. REVIEW OF SYSTEMS: No CV, , pulmonary, eye, ENT system symptoms on review. Reliability poor. MENTAL STATUS EXAM: Oriented to himself. Insight, judgment, recent and remote memory, attention, concentration, fund of knowledge poor, consistent with his diagnosis mentioned in my initial note. LABORATORY DATA: Reviewed. PLAN: Continue current psychotropics mentioned in my initial note, reviewed drug contractions. Seroquel was increased. Risk/benefit ratio favors no further intervention changes at this time. MAN Madelin SHABAZZ MD DR: RAYMUNDO/alex JOB#: [id number] / [id number]
[2017-06-23] MEDS: ACETAMINOPHEN 325 MG TABLET PO SCH ×3 (07:18→20:19)
[2017-06-23] MEDS: FLECAINIDE 50 MG TABLET. PO SCH ×2 (07:18→20:22)
[2017-06-23] MEDS: MEMANTINE 10 MG TABLET. PO SCH ×2 (07:18→20:18)
[2017-06-23] MEDS: MEGESTROL 40 MG TABLET. PO SCH ×2 (07:18→20:19)
[2017-06-23] MEDS: FINASTERIDE 5 MG TABLET PO SCH (07:18)
[2017-06-23] MEDS: MULTIVITAMIN with MINERAL TABLET. PO SCH (07:18)
[2017-06-23] MEDS: QUEtiapine 25 MG TABLET. PO SCH ×3 (07:18→18:31)
[2017-06-23] MEDS: LORazepam 0.5 MG TABLET PO SCH (07:30)
[2017-06-23 15:57] VITALS: BP 144/69
[2017-06-23] MEDS: MIRTAZAPINE 15 MG TABLET PO SCH (20:18)
[2017-06-23] MEDS: QUEtiapine 100 MG TABLET. PO SCH (20:19)
[2017-06-23] MEDS: DONEPEZIL HCL 10 MG TABLET PO SCH (20:20)
--- NOTE | 2017-06-23 23:15 | PDOC ---
Exam Evan Demential Exam: Evan Note: Please also refer to the separate dictated note~for this date of service dictated separately.~Patient seen individually. Discussed the patient with Nursing staff reviewed the chart.~Reviewed interim history and current functioning. Reviewed vital signs,~Labs/ Radiology~and current medications noted below. Continue current treatment with the changes noted in the dictated addendum note Assessment: Vital Signs: Vital Signs Date Time Temp Pulse Resp B/P (MAP) Pulse Ox O2 Delivery O2 Flow Rate FiO2 06/23/17 20:22 91 144/69 06/23/17 15:57 98.6 18 98 06/19/17 00:55 Room Air I&O Intake and Output 06/24/17 06:59 Intake Total 840 ml Balance 840 ml Intake Oral 840 ml # Voids 2 Current Medications: Meds: Current Medications Multi-Ingredient Ointment (Analgesic [place]) 1 talya PRN QID PRN TP MUSCLE PAIN; Start 06/19/17 at 00:30 Al Hydroxide/Mg Hydroxide (Mylanta Plus Xs) 15 ml PRN AFTMEALHC PRN PO DYSPEPSIA; Start 06/19/17 at 00:30 Magnesium Hydroxide (Milk Of Magnesia) 2,400 mg PRN QHS PRN PO CONSTIPATION Last administered on 06/21/17 19:34; Start 06/19/17 at 00:30 Donepezil HCl (Aricept) 20 mg QHS PO Last administered on 06/23/17 20:20; Start 06/19/17 at 21:00 Lorazepam (Ativan) 0.5 mg DAILY PO Last administered on 06/23/17 07:30; Start 06/19/17 at 09:00 Lorazepam (Ativan) 0.5 mg PRN Q6HRS PRN PO ANXIETY / AGITATION; Start 06/19/17 at 00:30 Megestrol Acetate (Megace) 40 mg BID PO Last administered on 06/23/17 20:19; Start 06/19/17 at 09:00 Mirtazapine (Remeron) 15 mg QHS PO Last administered on 06/23/17 20:18; Start 06/19/17 at 21:00 Quetiapine Fumarate (SEROquel) 25 mg BID92 PO Last administered on 06/20/17 14 :00; Start 06/19/17 at 09:00; Stop 06/20/17 at 18:26; Status DC Quetiapine Fumarate (SEROquel) 100 mg QHS PO Last administered on 06/23/17 20: 19; Start 06/19/17 at 21:00 Memantine (Namenda) 10 mg BID PO Last administered on 06/23/17 20:18; Start at 09:00 Acetaminophen (Tylenol) 650 mg TID PO Last administered on 06/23/17 20:19; Start 06/19/17 at 09:00 Finasteride (Proscar) 5 mg DAILY PO Last administered on 06/23/17 07:18; Start 06/19/17 at 09:00 Flecainide Acetate (Tambocor) 50 mg BID PO Last administered on 06/23/17 20:22 ; Start 06/19/17 at 09:00 Multivitamins/ Calcium (Thera-M Plus) 1 tab DAILY PO Last administered on 07:18; Start 06/19/17 at 09:00 Olanzapine (ZyPREXA ZYDIS) 2.5 mg PRN Q2HR PRN PO PSYCHOSIS Last administered on 06/22/17 17:22; Start 06/19/17 at 18:30 Quetiapine Fumarate (SEROquel) 25 mg TID@0900,1300,1700 PO Last administered on 06/23/17 18:31; Start 06/21/17 at 09:00 Active Scripts Active Reported Seroquel (Quetiapine Fumarate) 100 Mg Tablet 100 Mg PO QHS Seroquel (Quetiapine Fumarate) 25 Mg Tablet 25 Mg PO BID92 Thera M Plus Tablet (Multivits,Ca,Minerals/Iron/FA) 1 Each Tablet 1 Tab PO DAILY Remeron (Mirtazapine) 15 Mg Tablet 15 Mg PO QHS Namenda Xr (Memantine Hcl) 28 Mg Cap.spr.24 28 Mg PO DAILY Flecainide Acetate 50 Mg Tablet 50 Mg PO BID Proscar (Finasteride) 5 Mg Tablet 5 Mg PO DAILY Aricept (Donepezil Hcl) 10 Mg Tablet 20 Mg PO QHS Ativan (Lorazepam) 0.5 Mg Tablet 0.5 Mg PO DAILY Ativan (Lorazepam) 0.5 Mg Tablet 0.5 Mg PO PRN Q6HRS PRN Megestrol Acetate 40 Mg Tablet 40 Mg PO BID Tylenol (Acetaminophen) 325 Mg Tablet 650 Mg PO TID Diagnosis: Problems: (1) Dementia (2) Disruptive behavior (3) Anxiety disorder (4) Dementia, vascular, with delusions (5) Dementia, vascular, 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
--- NOTE | 2017-06-24 02:57 | PN ---
DATE: 06/22/2017 This late entry for 06/22/2017 covers elements not covered in my initial note of 06/22/2017. SUBJECTIVE: The patient was seen individually evening of 06/22/2017. He refused to get up for breakfast, sleeps late, refused assessments the previous evening, takes his medications in [employer]. He is combative with cares with nursing staff. came to visit and he was aggressive with her. He remains very confused. REVIEW OF SYSTEMS: No CV, , pulmonary, eye, ENT system symptoms on review. Reliability poor. MENTAL STATUS EXAM: Oriented to himself. Insight, judgment, recent and remote memory, attention, concentration, fund of knowledge poor, consistent with his diagnosis mentioned in my initial note. PLAN: I have carefully reviewed the patient's psychotropics. Recent changes were made him for now. Drug interactions were reviewed. Risk/benefit ratio favors no further change at this time. TONE SHABAZZ MD DR: RAYMUNDO/alex JOB#: [id number] / [id number]
[2017-06-24] MEDS: MULTIVITAMIN with MINERAL TABLET. PO SCH (07:28)
[2017-06-24] MEDS: FLECAINIDE 50 MG TABLET. PO SCH ×2 (07:29→19:54)
[2017-06-24] MEDS: QUEtiapine 25 MG TABLET. PO SCH ×3 (07:29→17:00)
[2017-06-24] MEDS: ACETAMINOPHEN 325 MG TABLET PO SCH ×3 (07:29→19:53)
[2017-06-24] MEDS: FINASTERIDE 5 MG TABLET PO SCH (07:29)
[2017-06-24] MEDS: MEGESTROL 40 MG TABLET. PO SCH ×2 (07:29→19:53)
[2017-06-24] MEDS: MEMANTINE 10 MG TABLET. PO SCH ×2 (07:29→19:53)
[2017-06-24] MEDS: LORazepam 0.5 MG TABLET PO SCH (07:29)
[2017-06-24] MEDS: DIVALPROEX 125 MG CAP.SPRINK PO SCH ×2 (12:56→19:54)
[2017-06-24 15:42] VITALS: BP 100/62
[2017-06-24] MEDS: QUEtiapine 100 MG TABLET. PO SCH (19:53)
[2017-06-24] MEDS: DONEPEZIL HCL 10 MG TABLET PO SCH (19:53)
[2017-06-24] MEDS: MIRTAZAPINE 15 MG TABLET PO SCH (19:53)
--- NOTE | 2017-06-24 21:43 | PDOC ---
Exam Evan Demential Exam: Evan Note: Please also refer to the separate dictated note~for this date of service dictated separately.~Patient seen individually. Discussed the patient with Nursing staff reviewed the chart.~Reviewed interim history and current functioning. Reviewed vital signs,~Labs/ Radiology~and current medications noted below. Continue current treatment with the changes noted in the dictated addendum note Assessment: Vital Signs: Vital Signs Date Time Temp Pulse Resp B/P (MAP) Pulse Ox O2 Delivery O2 Flow Rate FiO2 06/24/17 19:54 72 100/62 06/24/17 15:42 98.4 20 97 06/19/17 00:55 Room Air I&O Intake and Output 06/25/17 06:59 Intake Total 1080 ml Balance 1080 ml Intake Oral 1080 ml # Bowel Movements 1 Current Medications: Meds: Current Medications Multi-Ingredient Ointment (Analgesic [place]) 1 talya PRN QID PRN TP MUSCLE PAIN; Start 06/19/17 at 00:30 Al Hydroxide/Mg Hydroxide (Mylanta Plus Xs) 15 ml PRN AFTMEALHC PRN PO DYSPEPSIA; Start 06/19/17 at 00:30 Magnesium Hydroxide (Milk Of Magnesia) 2,400 mg PRN QHS PRN PO CONSTIPATION Last administered on 06/21/17 19:34; Start 06/19/17 at 00:30 Donepezil HCl (Aricept) 20 mg QHS PO Last administered on 06/24/17 19:53; Start 06/19/17 at 21:00 Lorazepam (Ativan) 0.5 mg DAILY PO Last administered on 06/24/17 07:29; Start 06/19/17 at 09:00 Lorazepam (Ativan) 0.5 mg PRN Q6HRS PRN PO ANXIETY / AGITATION; Start 06/19/17 at 00:30 Megestrol Acetate (Megace) 40 mg BID PO Last administered on 06/24/17 19:53; Start 06/19/17 at 09:00 Mirtazapine (Remeron) 15 mg QHS PO Last administered on 06/24/17 19:53; Start 06/19/17 at 21:00 Quetiapine Fumarate (SEROquel) 25 mg BID92 PO Last administered on 06/20/17 14 :00; Start 06/19/17 at 09:00; Stop 06/20/17 at 18:26; Status DC Quetiapine Fumarate (SEROquel) 100 mg QHS PO Last administered on 06/24/17 19: 53; Start 06/19/17 at 21:00 Memantine (Namenda) 10 mg BID PO Last administered on 06/24/17 19:53; Start at 09:00 Acetaminophen (Tylenol) 650 mg TID PO Last administered on 06/24/17 19:53; Start 06/19/17 at 09:00 Finasteride (Proscar) 5 mg DAILY PO Last administered on 06/24/17 07:29; Start 06/19/17 at 09:00 Flecainide Acetate (Tambocor) 50 mg BID PO Last administered on 06/24/17 19:54 ; Start 06/19/17 at 09:00 Multivitamins/ Calcium (Thera-M Plus) 1 tab DAILY PO Last administered on 07:28; Start 06/19/17 at 09:00 Olanzapine (ZyPREXA ZYDIS) 2.5 mg PRN Q2HR PRN PO PSYCHOSIS Last administered on 06/22/17 17:22; Start 06/19/17 at 18:30 Quetiapine Fumarate (SEROquel) 25 mg TID@0900,1300,1700 PO Last administered on 06/24/17 17:00; Start 06/21/17 at 09:00 Divalproex Sodium (Depakote Sprinkles) 125 mg BID PO Last administered on 19:54; Start 06/24/17 at 11:30 Active Scripts Active Reported Seroquel (Quetiapine Fumarate) 100 Mg Tablet 100 Mg PO QHS Seroquel (Quetiapine Fumarate) 25 Mg Tablet 25 Mg PO BID92 Thera M Plus Tablet (Multivits,Ca,Minerals/Iron/FA) 1 Each Tablet 1 Tab PO DAILY Remeron (Mirtazapine) 15 Mg Tablet 15 Mg PO QHS Namenda Xr (Memantine Hcl) 28 Mg Cap.spr.24 28 Mg PO DAILY Flecainide Acetate 50 Mg Tablet 50 Mg PO BID Proscar (Finasteride) 5 Mg Tablet 5 Mg PO DAILY Aricept (Donepezil Hcl) 10 Mg Tablet 20 Mg PO QHS Ativan (Lorazepam) 0.5 Mg Tablet 0.5 Mg PO DAILY Ativan (Lorazepam) 0.5 Mg Tablet 0.5 Mg PO PRN Q6HRS PRN Megestrol Acetate 40 Mg Tablet 40 Mg PO BID Tylenol (Acetaminophen) 325 Mg Tablet 650 Mg PO TID Diagnosis: Problems: (1) Dementia (2) Disruptive behavior (3) Anxiety disorder (4) Dementia, vascular, with delusions (5) Dementia, vascular, 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
--- NOTE | 2017-06-24 23:45 | PN ---
DATE: 06/23/2017 SUBJECTIVE: This is a late entry date of service 06/23/2017, covers elements not covered in my initial note of 06/23/2017. SUBJECTIVE: I met with the patient evening of 06/23/2017. He has been confused, resistive with cares hitting at peer, and laying in other patients bed. Take his meds in food and drink only; otherwise, noncompliant. REVIEW OF SYSTEMS: No CV, , eye, ENT, or pulmonary system symptoms on review. Reliability is poor. MENTAL STATUS EXAM: Oriented to himself. Insight, judgment, recent and remote memory, attention, concentration, and fund of knowledge poor consistent with his diagnosis mentioned in my initial note. PLAN: Continue psychotropics mentioned in my initial note Seroquel as 25 mg t.i.d. and 100 mg at bedtime. Continue Zyprexa p.r.n., Aricept, Namenda, Ativan p.r.n., Remeron, and Megace. Start Depakote Sprinkles starting 06/24/2017 125 mg twice a day. Follow labs level. Adjust as clinically indicated. Reviewed drug interactions and risk/benefit ratio favors no further change. TONE SHABAZZ MD DR: RAYMUNDO/alex JOB#: [id number] / [id number]
[2017-06-25] MEDS: FINASTERIDE 5 MG TABLET PO SCH (07:45)
[2017-06-25] MEDS: ACETAMINOPHEN 325 MG TABLET PO SCH ×3 (07:45→19:13)
[2017-06-25] MEDS: QUEtiapine 25 MG TABLET. PO SCH ×3 (07:45→17:23)
[2017-06-25] MEDS: DIVALPROEX 125 MG CAP.SPRINK PO SCH ×2 (07:45→19:13)
[2017-06-25] MEDS: MEGESTROL 40 MG TABLET. PO SCH ×2 (07:45→19:13)
[2017-06-25] MEDS: MEMANTINE 10 MG TABLET. PO SCH ×2 (07:45→19:13)
[2017-06-25] MEDS: MULTIVITAMIN with MINERAL TABLET. PO SCH (07:45)
[2017-06-25] MEDS: LORazepam 0.5 MG TABLET PO SCH (07:47)
[2017-06-25] MEDS: FLECAINIDE 50 MG TABLET. PO SCH ×2 (07:47→19:14)
[2017-06-25 15:41] VITALS: BP 123/74
[2017-06-25] MEDS: QUEtiapine 100 MG TABLET. PO SCH (19:13)
[2017-06-25] MEDS: MIRTAZAPINE 15 MG TABLET PO SCH (19:13)
[2017-06-25] MEDS: DONEPEZIL HCL 10 MG TABLET PO SCH (19:13)
--- NOTE | 2017-06-25 22:39 | PDOC ---
Exam Evan Demential Exam: Evan Note: Please also refer to the separate dictated note~for this date of service dictated separately.~Patient seen individually. Discussed the patient with Nursing staff reviewed the chart.~Reviewed interim history and current functioning. Reviewed vital signs,~Labs/ Radiology~and current medications noted below. Continue current treatment with the changes noted in the dictated addendum note Assessment: Vital Signs: Vital Signs Date Time Temp Pulse Resp B/P (MAP) Pulse Ox O2 Delivery O2 Flow Rate FiO2 06/25/17 19:14 90 123/74 06/25/17 15:41 18 96 06/24/17 15:42 98.4 I&O Intake and Output 06/26/17 06:59 Intake Total 800 ml Balance 800 ml Intake Oral 800 ml # Voids 2 # Bowel Movements 1 Current Medications: Meds: Current Medications Multi-Ingredient Ointment (Analgesic [place]) 1 talya PRN QID PRN TP MUSCLE PAIN; Start 06/19/17 at 00:30 Al Hydroxide/Mg Hydroxide (Mylanta Plus Xs) 15 ml PRN AFTMEALHC PRN PO DYSPEPSIA; Start 06/19/17 at 00:30 Magnesium Hydroxide (Milk Of Magnesia) 2,400 mg PRN QHS PRN PO CONSTIPATION Last administered on 06/21/17 19:34; Start 06/19/17 at 00:30 Donepezil HCl (Aricept) 20 mg QHS PO Last administered on 06/25/17 19:13; Start 06/19/17 at 21:00 Lorazepam (Ativan) 0.5 mg DAILY PO Last administered on 06/25/17 07:47; Start 06/19/17 at 09:00 Lorazepam (Ativan) 0.5 mg PRN Q6HRS PRN PO ANXIETY / AGITATION; Start 06/19/17 at 00:30 Megestrol Acetate (Megace) 40 mg BID PO Last administered on 06/25/17 19:13; Start 06/19/17 at 09:00 Mirtazapine (Remeron) 15 mg QHS PO Last administered on 06/25/17 19:13; Start 06/19/17 at 21:00 Quetiapine Fumarate (SEROquel) 25 mg BID92 PO Last administered on 06/20/17 14 :00; Start 06/19/17 at 09:00; Stop 06/20/17 at 18:26; Status DC Quetiapine Fumarate (SEROquel) 100 mg QHS PO Last administered on 06/25/17 19: 13; Start 06/19/17 at 21:00 Memantine (Namenda) 10 mg BID PO Last administered on 06/25/17 19:13; Start at 09:00 Acetaminophen (Tylenol) 650 mg TID PO Last administered on 06/25/17 19:13; Start 06/19/17 at 09:00 Finasteride (Proscar) 5 mg DAILY PO Last administered on 06/25/17 07:45; Start 06/19/17 at 09:00 Flecainide Acetate (Tambocor) 50 mg BID PO Last administered on 06/25/17 19:14 ; Start 06/19/17 at 09:00 Multivitamins/ Calcium (Thera-M Plus) 1 tab DAILY PO Last administered on 07:45; Start 06/19/17 at 09:00 Olanzapine (ZyPREXA ZYDIS) 2.5 mg PRN Q2HR PRN PO PSYCHOSIS Last administered on 06/25/17 12:07; Start 06/19/17 at 18:30 Quetiapine Fumarate (SEROquel) 25 mg TID@0900,1300,1700 PO Last administered on 06/25/17 17:23; Start 06/21/17 at 09:00 Divalproex Sodium (Depakote Sprinkles) 125 mg BID PO Last administered on 19:13; Start 06/24/17 at 11:30 Vitamin D (Vitamin D3) 50,000 unit WEEKLY PO ; Start 06/26/17 at 09:00 Active Scripts Active Reported Seroquel (Quetiapine Fumarate) 100 Mg Tablet 100 Mg PO QHS Seroquel (Quetiapine Fumarate) 25 Mg Tablet 25 Mg PO BID92 Thera M Plus Tablet (Multivits,Ca,Minerals/Iron/FA) 1 Each Tablet 1 Tab PO DAILY Remeron (Mirtazapine) 15 Mg Tablet 15 Mg PO QHS Namenda Xr (Memantine Hcl) 28 Mg Cap.spr.24 28 Mg PO DAILY Flecainide Acetate 50 Mg Tablet 50 Mg PO BID Proscar (Finasteride) 5 Mg Tablet 5 Mg PO DAILY Aricept (Donepezil Hcl) 10 Mg Tablet 20 Mg PO QHS Ativan (Lorazepam) 0.5 Mg Tablet 0.5 Mg PO DAILY Ativan (Lorazepam) 0.5 Mg Tablet 0.5 Mg PO PRN Q6HRS PRN Megestrol Acetate 40 Mg Tablet 40 Mg PO BID Tylenol (Acetaminophen) 325 Mg Tablet 650 Mg PO TID Diagnosis: Problems: (1) Dementia (2) Anxiety disorder (3) Dementia, vascular, with delusions (4) Dementia, vascular, 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
--- NOTE | 2017-06-25 23:15 | PN ---
DATE: 06/24/2017 This late entry, 06/24/2017, covers elements not covered in my initial note of 06/24/2017. Met with the patient evening of 06/24/2017. The patient remains confused, combative with cares. He seems to understand better than he is able to express himself per nursing report. REVIEW OF SYSTEMS: Ambulation impaired. No CV, , pulmonary, eye system symptoms on review. Reliability poor. MENTAL STATUS EXAM: Oriented to himself. Insight, judgment, recent and remote memory, attention, concentration, fund of knowledge poor, consistent with his diagnosis mentioned in my initial note. PLAN: Depakote was added. We will follow labs level, adjust as indicated. Continue rest of the psychotropics. Reviewed drug interactions. Risk, benefit ratio favors no other change as yet. MAN Madelin SHABAZZ MD DR: RAYMUNDO/alex JOB#: [id number] / [id number]
[2017-06-26] MEDS: MEMANTINE 10 MG TABLET. PO SCH ×2 (07:54→19:14)
[2017-06-26] MEDS: FINASTERIDE 5 MG TABLET PO SCH (07:54)
[2017-06-26] MEDS: MULTIVITAMIN with MINERAL TABLET. PO SCH (07:54)
[2017-06-26] MEDS: QUEtiapine 25 MG TABLET. PO SCH ×3 (07:54→16:46)
[2017-06-26] MEDS: MEGESTROL 40 MG TABLET. PO SCH ×2 (07:54→19:14)
[2017-06-26] MEDS: ACETAMINOPHEN 325 MG TABLET PO SCH ×3 (07:54→19:13)
[2017-06-26] MEDS: DIVALPROEX 125 MG CAP.SPRINK PO SCH ×2 (07:55→19:13)
[2017-06-26] MEDS: LORazepam 0.5 MG TABLET PO SCH (07:57)
[2017-06-26] MEDS: FLECAINIDE 50 MG TABLET. PO SCH ×2 (07:57→19:19)
[2017-06-26] MEDS: CHOLECALCIFEROL (VITAMIN D3) 50,000 UNIT CAPSULE PO SCH (07:57)
[2017-06-26 17:26] VITALS: BP 109/64
[2017-06-26] MEDS: DONEPEZIL HCL 10 MG TABLET PO SCH (19:14)
[2017-06-26] MEDS: MIRTAZAPINE 15 MG TABLET PO SCH (19:14)
[2017-06-26] MEDS: QUEtiapine 100 MG TABLET. PO SCH (19:14)
--- NOTE | 2017-06-26 19:28 | PDOC ---
Exam Evan Demential Exam: Evan Note: Please also refer to the separate dictated note~for this date of service dictated separately.~Patient seen individually. Discussed the patient with Nursing staff reviewed the chart.~Reviewed interim history and current functioning. Reviewed vital signs,~Labs/ Radiology~and current medications noted below. Continue current treatment with the changes noted in the dictated addendum note Assessment: Vital Signs: Vital Signs Date Time Temp Pulse Resp B/P (MAP) Pulse Ox O2 Delivery O2 Flow Rate FiO2 06/26/17 19:19 44 109/64 06/26/17 17:26 97.7 18 96 Room Air I&O Intake and Output 06/27/17 07:00 Intake Total 1260 ml Balance 1260 ml Intake Oral 1260 ml Current Medications: Meds: Current Medications Multi-Ingredient Ointment (Analgesic [place]) 1 talya PRN QID PRN TP MUSCLE PAIN; Start 06/19/17 at 00:30 Al Hydroxide/Mg Hydroxide (Mylanta Plus Xs) 15 ml PRN AFTMEALHC PRN PO DYSPEPSIA; Start 06/19/17 at 00:30 Magnesium Hydroxide (Milk Of Magnesia) 2,400 mg PRN QHS PRN PO CONSTIPATION Last administered on 06/21/17 19:34; Start 06/19/17 at 00:30 Donepezil HCl (Aricept) 20 mg QHS PO Last administered on 06/26/17 19:14; Start 06/19/17 at 21:00 Lorazepam (Ativan) 0.5 mg DAILY PO Last administered on 06/26/17 07:57; Start 06/19/17 at 09:00; Stop 06/26/17 at 18:43; Status DC Lorazepam (Ativan) 0.5 mg PRN Q6HRS PRN PO ANXIETY / AGITATION; Start 06/19/17 at 00:30 Megestrol Acetate (Megace) 40 mg BID PO Last administered on 06/26/17 19:14; Start 06/19/17 at 09:00 Mirtazapine (Remeron) 15 mg QHS PO Last administered on 06/26/17 19:14; Start 06/19/17 at 21:00 Quetiapine Fumarate (SEROquel) 25 mg BID92 PO Last administered on 06/20/17 14 :00; Start 06/19/17 at 09:00; Stop 06/20/17 at 18:26; Status DC Quetiapine Fumarate (SEROquel) 100 mg QHS PO Last administered on 06/26/17 19: 14; Start 06/19/17 at 21:00 Memantine (Namenda) 10 mg BID PO Last administered on 06/26/17 19:14; Start at 09:00 Acetaminophen (Tylenol) 650 mg TID PO Last administered on 06/26/17 19:13; Start 06/19/17 at 09:00 Finasteride (Proscar) 5 mg DAILY PO Last administered on 06/26/17 07:54; Start 06/19/17 at 09:00 Flecainide Acetate (Tambocor) 50 mg BID PO Last administered on 06/26/17 07:57 ; Start 06/19/17 at 09:00 Multivitamins/ Calcium (Thera-M Plus) 1 tab DAILY PO Last administered on 07:54; Start 06/19/17 at 09:00 Olanzapine (ZyPREXA ZYDIS) 2.5 mg PRN Q2HR PRN PO PSYCHOSIS Last administered on 06/25/17 12:07; Start 06/19/17 at 18:30 Quetiapine Fumarate (SEROquel) 25 mg TID@0900,1300,1700 PO Last administered on 06/26/17 16:46; Start 06/21/17 at 09:00 Divalproex Sodium (Depakote Sprinkles) 125 mg BID PO Last administered on 19:13; Start 06/24/17 at 11:30 Vitamin D (Vitamin D3) 50,000 unit WEEKLY PO Last administered on 06/26/17 07: 57; Start 06/26/17 at 09:00 Lorazepam (Ativan) 0.25 mg DAILY PO ; Start 06/27/17 at 09:00; Stop 06/28/17 at 23 :00 Active Scripts Active Reported Seroquel (Quetiapine Fumarate) 100 Mg Tablet 100 Mg PO QHS Seroquel (Quetiapine Fumarate) 25 Mg Tablet 25 Mg PO BID92 Thera M Plus Tablet (Multivits,Ca,Minerals/Iron/FA) 1 Each Tablet 1 Tab PO DAILY Remeron (Mirtazapine) 15 Mg Tablet 15 Mg PO QHS Namenda Xr (Memantine Hcl) 28 Mg Cap.spr.24 28 Mg PO DAILY Flecainide Acetate 50 Mg Tablet 50 Mg PO BID Proscar (Finasteride) 5 Mg Tablet 5 Mg PO DAILY Aricept (Donepezil Hcl) 10 Mg Tablet 20 Mg PO QHS Ativan (Lorazepam) 0.5 Mg Tablet 0.5 Mg PO DAILY Ativan (Lorazepam) 0.5 Mg Tablet 0.5 Mg PO PRN Q6HRS PRN Megestrol Acetate 40 Mg Tablet 40 Mg PO BID Tylenol (Acetaminophen) 325 Mg Tablet 650 Mg PO TID Diagnosis: Problems: (1) Dementia (2) Disruptive behavior (3) Anxiety disorder (4) Dementia, vascular, with delusions (5) Dementia, vascular, 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
--- NOTE | 2017-06-27 01:15 | PN ---
DATE: 06/25/2017 This late entry 06/25/2017 covers elements not covered in my initial note of 06/25/2017 SUBJECTIVE: The patient slept 7-1/4 hours previous evening, was agitated, aggressive with cares, hitting, kicking. Meds have to be hidden in chocolate, ice cream, took 3 staff members to redirect after using the wrong room. He was combative with a.m. and p.m. shifts. LABORATORY DATA: CBC, CMP, valproic acid level awaited 06/27/2017. REVIEW OF SYSTEMS: No CV, , pulmonary, eye, ENT system symptoms on review. Reliability poor. MENTAL STATUS EXAM: Oriented to himself. Insight, judgment, recent and remote memory, attention, concentration, fund of knowledge poor, consistent with his diagnosis mentioned in my initial note. LABORATORY DATA: Reviewed. PLAN: Continue current psychotropics. Check labs level on 06/27/2017. Adjust further as clinically indicated after that. Current medications noted in my initial note. MAN TerryMorena SHABAZZ MD DR: RAYMUNDO/alex JOB#: [id number] / [id number]
[2017-06-27 06:02] VITALS: BP 143/71
[2017-06-27 08:01] LABS: BASO # 0.1 x10^3/uL (0.0-0.2); BASO % 1 % (0-3); EOS # 0.1 x10^3/uL (0.0-0.7); EOS % 1 % (0-3); HEMATOCRIT 35.1 % (39.0-53.0); HEMOGLOBIN 11.7 g/dL (13.0-17.5); LYMPH # 1.6 x10^3/uL (1.0-4.8); LYMPH % 21 % (24-48); MEAN CORPUSCULAR HEMOGLOBIN 32 pg (25-35); MEAN CORPUSCULAR HGB CONC 33 g/dL (31-37); MEAN CORPUSCULAR VOLUME 95 fL (79-100); MONO # 0.6 x10^3/uL (0.0-1.1); MONO % 7 % (0-9); NEUT # 5.4 x10^3uL (1.8-7.7); NEUT % 70 % (31-73); PLATELET COUNT 269 x10^3/uL (140-400); RED BLOOD COUNT 3.68 x10^6/uL (4.30-5.70); RED CELL DISTRIBUTION WIDTH 15.2 % (11.5-14.5); WHITE BLOOD COUNT 7.8 x10^3/uL (4.0-11.0)
[2017-06-27 08:15] LABS: ALBUMIN/GLOBULIN RATIO 0.9 (1.0-1.7); ALK PHOS 69 U/L (46-116); ALT (SGPT) 18 U/L (16-63); ANION GAP 8 (6-14); AST (SGOT) 12 U/L (15-37); BLOOD UREA NITROGEN 40 mg/dL (8-26); BUN/CREATININE RATIO 31 (6-20); CARBON DIOXIDE 27 mmol/L (21-32); CHLORIDE 113 mmol/L (98-107); CREATININE 1.3 mg/dL (0.7-1.3); GFR 52.5; GLUCOSE 92 mg/dL (70-99); POTASSIUM 4.7 mmol/L (3.5-5.1); SODIUM 148 mmol/L (136-145); TOTAL BILIRUBIN 0.4 mg/dL (0.2-1.0); TOTAL PROTEIN 6.4 g/dL (6.4-8.2)
[2017-06-27 08:16] LABS: VAL ACID 16 mcg/mL (50-100)
[2017-06-27] MEDS: FINASTERIDE 5 MG TABLET PO SCH (08:30)
[2017-06-27] MEDS: ACETAMINOPHEN 325 MG TABLET PO SCH ×3 (08:30→19:19)
[2017-06-27] MEDS: MEGESTROL 40 MG TABLET. PO SCH ×2 (08:30→19:20)
[2017-06-27] MEDS: DIVALPROEX 125 MG CAP.SPRINK PO SCH ×2 (08:30→19:19)
[2017-06-27] MEDS: MEMANTINE 10 MG TABLET. PO SCH ×2 (08:30→19:20)
[2017-06-27] MEDS: MULTIVITAMIN with MINERAL TABLET. PO SCH (08:30)
[2017-06-27] MEDS: QUEtiapine 25 MG TABLET. PO SCH ×3 (08:31→15:58)
[2017-06-27] MEDS: LORazepam 0.5 MG TABLET PO SCH (08:33)
[2017-06-27] MEDS: FLECAINIDE 50 MG TABLET. PO SCH ×2 (08:34→19:30)
[2017-06-27] MEDS: MAGNESIUM HYDROXIDE 2,400 MG/30 ML ORAL.SUSP. PO PRN (15:45)
[2017-06-27 16:18] VITALS: BP 100/62
[2017-06-27] MEDS: DONEPEZIL HCL 10 MG TABLET PO SCH (19:19)
[2017-06-27] MEDS: MIRTAZAPINE 15 MG TABLET PO SCH (19:19)
[2017-06-27] MEDS: QUEtiapine 100 MG TABLET. PO SCH (19:19)
--- NOTE | 2017-06-27 19:51 | PDOC ---
Exam Evan Demential Exam: Evan Note: Please also refer to the separate dictated note~for this date of service dictated separately.~Patient seen individually. Discussed the patient with Nursing staff reviewed the chart.~Reviewed interim history and current functioning. Reviewed vital signs,~Labs/ Radiology~and current medications noted below. Continue current treatment with the changes noted in the dictated addendum note Assessment: Vital Signs: Vital Signs Date Time Temp Pulse Resp B/P (MAP) Pulse Ox O2 Delivery O2 Flow Rate FiO2 06/27/17 19:30 93 131/71 06/27/17 16:18 97.3 17 06/27/17 06:02 97 06/26/17 17:26 Room Air I&O Intake and Output 06/28/17 07:00 Intake Total 1320 ml Balance 1320 ml Intake Oral 1320 ml # Bowel Movements 1 Labs: Laboratory Tests Test 06/27/17 07:15 White Blood Count 7.8 x10^3/uL (4.0-11.0) Red Blood Count 3.68 x10^6/uL (4.30-5.70) L Hemoglobin 11.7 g/dL (13.0-17.5) L Hematocrit 35.1 % (39.0-53.0) L Mean Corpuscular Volume 95 fL (79-100) Mean Corpuscular Hemoglobin 32 pg (25-35) Mean Corpuscular Hemoglobin Concent 33 g/dL (31-37) Red Cell Distribution Width 15.2 % (11.5-14.5) H Platelet Count 269 x10^3/uL (140-400) Neutrophils (%) (Auto) 70 % (31-73) Lymphocytes (%) (Auto) 21 % (24-48) L Monocytes (%) (Auto) 7 % (0-9) Eosinophils (%) (Auto) 1 % (0-3) Basophils (%) (Auto) 1 % (0-3) Neutrophils # (Auto) 5.4 x10^3uL (1.8-7.7) Lymphocytes # (Auto) 1.6 x10^3/uL (1.0-4.8) Monocytes # (Auto) 0.6 x10^3/uL (0.0-1.1) Eosinophils # (Auto) 0.1 x10^3/uL (0.0-0.7) Basophils # (Auto) 0.1 x10^3/uL (0.0-0.2) Sodium Level 148 mmol/L (136-145) H Potassium Level 4.7 mmol/L (3.5-5.1) Chloride Level 113 mmol/L (98-107) H Carbon Dioxide Level 27 mmol/L (21-32) Anion Gap 8 (6-14) Blood Urea Nitrogen 40 mg/dL (8-26) H Creatinine 1.3 mg/dL (0.7-1.3) Estimated GFR (Cockcroft-Gault) 52.5 BUN/Creatinine Ratio 31 (6-20) H Glucose Level 92 mg/dL (70-99) Calcium Level 9.0 mg/dL (8.5-10.1) Total Bilirubin 0.4 mg/dL (0.2-1.0) Aspartate Amino Transferase (AST) 12 U/L (15-37) L Alanine Aminotransferase (ALT) 18 U/L (16-63) Alkaline Phosphatase 69 U/L (46-116) Total Protein 6.4 g/dL (6.4-8.2) Albumin 3.0 g/dL (3.4-5.0) L Albumin/Globulin Ratio 0.9 (1.0-1.7) L Valproic Acid Level 16 mcg/mL (50-100) L Valproic Acid Last Dose Date 06/26/2017 Valproic Acid Last Dose Time 2100 Current Medications: Meds: Current Medications Multi-Ingredient Ointment (Analgesic [place]) 1 talya PRN QID PRN TP MUSCLE PAIN; Start 06/19/17 at 00:30 Al Hydroxide/Mg Hydroxide (Mylanta Plus Xs) 15 ml PRN AFTMEALHC PRN PO DYSPEPSIA; Start 06/19/17 at 00:30 Magnesium Hydroxide (Milk Of Magnesia) 2,400 mg PRN QHS PRN PO CONSTIPATION Last administered on 06/27/17 15:45; Start 06/19/17 at 00:30 Donepezil HCl (Aricept) 20 mg QHS PO Last administered on 06/27/17 19:19; Start 06/19/17 at 21:00 Lorazepam (Ativan) 0.5 mg DAILY PO Last administered on 06/26/17 07:57; Start 06/19/17 at 09:00; Stop 06/26/17 at 18:43; Status DC Lorazepam (Ativan) 0.5 mg PRN Q6HRS PRN PO ANXIETY / AGITATION; Start 06/19/17 at 00:30 Megestrol Acetate (Megace) 40 mg BID PO Last administered on 06/27/17 19:20; Start 06/19/17 at 09:00 Mirtazapine (Remeron) 15 mg QHS PO Last administered on 06/27/17 19:19; Start 06/19/17 at 21:00 Quetiapine Fumarate (SEROquel) 25 mg BID92 PO Last administered on 06/20/17 14 :00; Start 06/19/17 at 09:00; Stop 06/20/17 at 18:26; Status DC Quetiapine Fumarate (SEROquel) 100 mg QHS PO Last administered on 06/27/17 19: 19; Start 06/19/17 at 21:00 Memantine (Namenda) 10 mg BID PO Last administered on 06/27/17 19:20; Start at 09:00 Acetaminophen (Tylenol) 650 mg TID PO Last administered on 06/27/17 19:19; Start 06/19/17 at 09:00 Finasteride (Proscar) 5 mg DAILY PO Last administered on 06/27/17 08:30; Start 06/19/17 at 09:00 Flecainide Acetate (Tambocor) 50 mg BID PO Last administered on 06/27/17 19:30 ; Start 06/19/17 at 09:00 Multivitamins/ Calcium (Thera-M Plus) 1 tab DAILY PO Last administered on 08:30; Start 06/19/17 at 09:00 Olanzapine (ZyPREXA ZYDIS) 2.5 mg PRN Q2HR PRN PO PSYCHOSIS Last administered on 06/25/17 12:07; Start 06/19/17 at 18:30 Quetiapine Fumarate (SEROquel) 25 mg TID@0900,1300,1700 PO Last administered on 06/27/17 15:58; Start 06/21/17 at 09:00 Divalproex Sodium (Depakote Sprinkles) 125 mg BID PO Last administered on 08:30; Start 06/24/17 at 11:30; Stop 06/27/17 at 18:35; Status DC Vitamin D (Vitamin D3) 50,000 unit WEEKLY PO Last administered on 06/26/17 07: 57; Start 06/26/17 at 09:00 Lorazepam (Ativan) 0.25 mg DAILY PO Last administered on 06/27/17 08:33; Start 06/27/17 at 09:00; Stop 06/28/17 at 23:00 Divalproex Sodium (Depakote Sprinkles) 125 mg TID PO Last administered on 19:19; Start 06/27/17 at 21:00 Active Scripts Active Reported Seroquel (Quetiapine Fumarate) 100 Mg Tablet 100 Mg PO QHS Seroquel (Quetiapine Fumarate) 25 Mg Tablet 25 Mg PO BID92 Thera M Plus Tablet (Multivits,Ca,Minerals/Iron/FA) 1 Each Tablet 1 Tab PO DAILY Remeron (Mirtazapine) 15 Mg Tablet 15 Mg PO QHS Namenda Xr (Memantine Hcl) 28 Mg Cap.spr.24 28 Mg PO DAILY Flecainide Acetate 50 Mg Tablet 50 Mg PO BID Proscar (Finasteride) 5 Mg Tablet 5 Mg PO DAILY Aricept (Donepezil Hcl) 10 Mg Tablet 20 Mg PO QHS Ativan (Lorazepam) 0.5 Mg Tablet 0.5 Mg PO DAILY Ativan (Lorazepam) 0.5 Mg Tablet 0.5 Mg PO PRN Q6HRS PRN Megestrol Acetate 40 Mg Tablet 40 Mg PO BID Tylenol (Acetaminophen) 325 Mg Tablet 650 Mg PO TID Diagnosis: Problems: (1) Dementia (2) Disruptive behavior (3) Anxiety disorder (4) Dementia, vascular, with delusions (5) Dementia, vascular, 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
--- NOTE | 2017-06-28 00:59 | PN ---
DATE: 06/26/2017 SUBJECTIVE: This is a late entry 06/26/2017 covers elements not covered in my initial note of 06/26/2017. Met with the patient evening of 06/26/2017. The patient had a very difficult day, resistive to taking medications and to assistance with ADLs came down in the hallway with his pants down because he had to urinate. Staff intervened. He complained of feeling cold earlier in the evening. Staff gave him warm blanket. He was very appreciative of this and stated "thank you." REVIEW OF SYSTEMS: No CV, , pulmonary, eye, or ENT system symptoms on review. Reliability poor. MENTAL STATUS EXAM: Oriented to himself. Insight, judgment, recent and remote memory, attention, concentration, and fund of knowledge poor consistent with his diagnosis mentioned in my initial note. PLAN: Tapered and stopped the Ativan 0.5 mg daily. Reduce it to 0.25 mg daily for two days and stop. Maintain the rest unchanged. Remeron 15 mg at bedtime, Aricept 20 mg a day, Namenda 10 b.i.d., Seroquel 25 mg t.i.d. and 100 mg at bedtime, Megace 40 mg a day, Zyprexa p.r.n., and Depakote 125 mg b.i.d. Check labs level on 06/27/2017. Adjust to reach a therapeutic level. Reviewed drug contractions and risk/benefit ratio favors no further change. TONE SHABAZZ MD DR: RAYMUNDO/alex JOB#: [id number] / [id number]
[2017-06-28 05:50] VITALS: BP 112/78
[2017-06-28] MEDS: MULTIVITAMIN with MINERAL TABLET. PO SCH (08:24)
[2017-06-28] MEDS: ACETAMINOPHEN 325 MG TABLET PO SCH ×3 (08:24→19:41)
[2017-06-28] MEDS: MEGESTROL 40 MG TABLET. PO SCH ×2 (08:24→19:41)
[2017-06-28] MEDS: MEMANTINE 10 MG TABLET. PO SCH ×2 (08:24→19:41)
[2017-06-28] MEDS: DIVALPROEX 125 MG CAP.SPRINK PO SCH ×3 (08:24→19:41)
[2017-06-28] MEDS: QUEtiapine 25 MG TABLET. PO SCH ×3 (08:24→16:40)
[2017-06-28] MEDS: FINASTERIDE 5 MG TABLET PO SCH (08:24)
[2017-06-28] MEDS: LORazepam 0.5 MG TABLET PO SCH (08:26)
[2017-06-28] MEDS: FLECAINIDE 50 MG TABLET. PO SCH ×2 (08:28→19:41)
[2017-06-28 15:55] VITALS: BP 114/71
--- NOTE | 2017-06-28 19:34 | PDOC ---
Exam Evan Demential Exam: Evan Note: Please also refer to the separate dictated note~for this date of service dictated separately.~Patient seen individually. Discussed the patient with Nursing staff reviewed the chart.~Reviewed interim history and current functioning. Reviewed vital signs,~Labs/ Radiology~and current medications noted below. Continue current treatment with the changes noted in the dictated addendum note Assessment: Vital Signs: Vital Signs Date Time Temp Pulse Resp B/P (MAP) Pulse Ox O2 Delivery O2 Flow Rate FiO2 06/28/17 15:55 97.5 80 20 114/71 (85) 97 06/26/17 17:26 Room Air I&O Intake and Output 06/29/17 07:00 Intake Total 840 ml Balance 840 ml Intake Oral 840 ml Current Medications: Meds: Current Medications Multi-Ingredient Ointment (Analgesic [place]) 1 talya PRN QID PRN TP MUSCLE PAIN; Start 06/19/17 at 00:30 Al Hydroxide/Mg Hydroxide (Mylanta Plus Xs) 15 ml PRN AFTMEALHC PRN PO DYSPEPSIA; Start 06/19/17 at 00:30 Magnesium Hydroxide (Milk Of Magnesia) 2,400 mg PRN QHS PRN PO CONSTIPATION Last administered on 06/27/17 15:45; Start 06/19/17 at 00:30 Donepezil HCl (Aricept) 20 mg QHS PO Last administered on 06/27/17 19:19; Start 06/19/17 at 21:00 Lorazepam (Ativan) 0.5 mg DAILY PO Last administered on 06/26/17 07:57; Start 06/19/17 at 09:00; Stop 06/26/17 at 18:43; Status DC Lorazepam (Ativan) 0.5 mg PRN Q6HRS PRN PO ANXIETY / AGITATION; Start 06/19/17 at 00:30 Megestrol Acetate (Megace) 40 mg BID PO Last administered on 06/28/17 08:24; Start 06/19/17 at 09:00 Mirtazapine (Remeron) 15 mg QHS PO Last administered on 06/27/17 19:19; Start 06/19/17 at 21:00 Quetiapine Fumarate (SEROquel) 25 mg BID92 PO Last administered on 06/20/17 14 :00; Start 06/19/17 at 09:00; Stop 06/20/17 at 18:26; Status DC Quetiapine Fumarate (SEROquel) 100 mg QHS PO Last administered on 06/27/17 19: 19; Start 06/19/17 at 21:00 Memantine (Namenda) 10 mg BID PO Last administered on 06/28/17 08:24; Start at 09:00 Acetaminophen (Tylenol) 650 mg TID PO Last administered on 06/28/17 13:05; Start 06/19/17 at 09:00 Finasteride (Proscar) 5 mg DAILY PO Last administered on 06/28/17 08:24; Start 06/19/17 at 09:00 Flecainide Acetate (Tambocor) 50 mg BID PO Last administered on 06/28/17 08:28 ; Start 06/19/17 at 09:00 Multivitamins/ Calcium (Thera-M Plus) 1 tab DAILY PO Last administered on 08:24; Start 06/19/17 at 09:00 Olanzapine (ZyPREXA ZYDIS) 2.5 mg PRN Q2HR PRN PO PSYCHOSIS Last administered on 06/25/17 12:07; Start 06/19/17 at 18:30 Quetiapine Fumarate (SEROquel) 25 mg TID@0900,1300,1700 PO Last administered on 06/28/17 16:40; Start 06/21/17 at 09:00 Divalproex Sodium (Depakote Sprinkles) 125 mg BID PO Last administered on 08:30; Start 06/24/17 at 11:30; Stop 06/27/17 at 18:35; Status DC Vitamin D (Vitamin D3) 50,000 unit WEEKLY PO Last administered on 06/26/17 07: 57; Start 06/26/17 at 09:00 Lorazepam (Ativan) 0.25 mg DAILY PO Last administered on 06/28/17 08:26; Start 06/27/17 at 09:00; Stop 06/28/17 at 23:00 Divalproex Sodium (Depakote Sprinkles) 125 mg TID PO Last administered on 13:05; Start 06/27/17 at 21:00 Active Scripts Active Reported Seroquel (Quetiapine Fumarate) 100 Mg Tablet 100 Mg PO QHS Seroquel (Quetiapine Fumarate) 25 Mg Tablet 25 Mg PO BID92 Thera M Plus Tablet (Multivits,Ca,Minerals/Iron/FA) 1 Each Tablet 1 Tab PO DAILY Remeron (Mirtazapine) 15 Mg Tablet 15 Mg PO QHS Namenda Xr (Memantine Hcl) 28 Mg Cap.spr.24 28 Mg PO DAILY Flecainide Acetate 50 Mg Tablet 50 Mg PO BID Proscar (Finasteride) 5 Mg Tablet 5 Mg PO DAILY Aricept (Donepezil Hcl) 10 Mg Tablet 20 Mg PO QHS Ativan (Lorazepam) 0.5 Mg Tablet 0.5 Mg PO DAILY Ativan (Lorazepam) 0.5 Mg Tablet 0.5 Mg PO PRN Q6HRS PRN Megestrol Acetate 40 Mg Tablet 40 Mg PO BID Tylenol (Acetaminophen) 325 Mg Tablet 650 Mg PO TID Diagnosis: Problems: (1) Dementia (2) Disruptive behavior (3) Anxiety disorder (4) Dementia, vascular, with delusions (5) Dementia, vascular, 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
[2017-06-28] MEDS: DONEPEZIL HCL 10 MG TABLET PO SCH (19:41)
[2017-06-28] MEDS: QUEtiapine 100 MG TABLET. PO SCH (19:41)
[2017-06-28] MEDS: MIRTAZAPINE 15 MG TABLET PO SCH (19:41)
--- NOTE | 2017-06-29 01:49 | PN ---
DATE: 06/27/2017 This late entry for 06/27/2017 covers elements not covered in my initial note of 06/27/2017. SUBJECTIVE: I met with the patient in the evening of 06/27/2017. Overall, the patient remains confused, but has been less agitated, less labile, more redirectable. REVIEW OF SYSTEMS: No CV, , pulmonary, eye, ENT system symptoms on review. Reliability poor. MENTAL STATUS EXAM: Oriented to himself. Insight, judgment, recent and remote memory, attention, concentration, fund of knowledge poor, consistent with his diagnosis mentioned in my initial note. PLAN: Continue current psychotropics. Reviewed drug interactions. Risk/benefit ratio favors no further change at this time. MAN Madelin SHABAZZ MD DR: RAYMUNDO/alex JOB#: [id number] / [id number]
--- NOTE | 2017-06-29 04:55 | PN ---
DATE: 06/28/2017 This note covers elements not covered in my initial note of 06/28/2017. SUBJECTIVE: The patient was at treatment team meeting with the entire team morning of 06/28/2017. The patient's , Shantelle, attended the conference. We reviewed the history at length, discussed the patient's treatment, answered many of the 's questions. is very closely involved with the patient's care. He slept 8 hours. Appetite 80%. He gets agitated, hits and kicks during cares, resistive to cares, but otherwise doing better. The questioned whether Aricept was of any benefit and should be discontinued. We are adjusting the rest of his psychotropics, and probably starting in a couple of days we will stop the Aricept. REVIEW OF SYSTEMS: No CV, , pulmonary, eye, ENT system symptoms on review. Reliability poor. MENTAL STATUS EXAM: Oriented to himself. Insight, judgment, recent and remote memory, attention, concentration, fund of knowledge poor, consistent with his diagnosis mentioned in my initial note. LABORATORY DATA: Reviewed. PLAN: Continue current psychotropics. Received informed consent. Discussed drug interactions. Risk, benefit ratio favors no change. TONE SHABAZZ MD DR: RAYMUNDO/alex JOB#: [id number] / [id number]
[2017-06-29 06:28] VITALS: BP 138/80
[2017-06-29] MEDS: DIVALPROEX 125 MG CAP.SPRINK PO SCH ×2 (08:06→12:36)
[2017-06-29] MEDS: MEGESTROL 40 MG TABLET. PO SCH (08:06)
[2017-06-29] MEDS: FINASTERIDE 5 MG TABLET PO SCH (08:07)
[2017-06-29] MEDS: FLECAINIDE 50 MG TABLET. PO SCH ×2 (08:07→19:43)
[2017-06-29] MEDS: MEMANTINE 10 MG TABLET. PO SCH ×2 (08:07→19:43)
[2017-06-29] MEDS: ACETAMINOPHEN 325 MG TABLET PO SCH ×3 (08:08→19:43)
[2017-06-29] MEDS: QUEtiapine 25 MG TABLET. PO SCH ×3 (08:08→13:41)
[2017-06-29] MEDS: MULTIVITAMIN with MINERAL TABLET. PO SCH (08:08)
[2017-06-29 15:40] VITALS: BP 103/65
[2017-06-29] MEDS: DONEPEZIL HCL 10 MG TABLET PO SCH (19:42)
[2017-06-29] MEDS: MIRTAZAPINE 15 MG TABLET PO SCH (19:43)
[2017-06-29] MEDS: QUEtiapine 100 MG TABLET. PO SCH (19:43)
--- NOTE | 2017-06-29 20:31 | PDOC ---
Exam Evan Demential Exam: Evan Note: Please also refer to the separate dictated note~for this date of service dictated separately.~Patient seen individually. Discussed the patient with Nursing staff reviewed the chart.~Reviewed interim history and current functioning. Reviewed vital signs,~Labs/ Radiology~and current medications noted below. Continue current treatment with the changes noted in the dictated addendum note Assessment: Vital Signs: Vital Signs Date Time Temp Pulse Resp B/P (MAP) Pulse Ox O2 Delivery O2 Flow Rate FiO2 06/29/17 19:43 76 103/65 06/29/17 15:40 97.0 21 98 06/26/17 17:26 Room Air I&O Intake and Output 06/30/17 07:00 Intake Total 1080 ml Balance 1080 ml Intake Oral 1080 ml Current Medications: Meds: Current Medications Multi-Ingredient Ointment (Analgesic [place]) 1 talya PRN QID PRN TP MUSCLE PAIN; Start 06/19/17 at 00:30 Al Hydroxide/Mg Hydroxide (Mylanta Plus Xs) 15 ml PRN AFTMEALHC PRN PO DYSPEPSIA; Start 06/19/17 at 00:30 Magnesium Hydroxide (Milk Of Magnesia) 2,400 mg PRN QHS PRN PO CONSTIPATION Last administered on 06/27/17 15:45; Start 06/19/17 at 00:30 Donepezil HCl (Aricept) 20 mg QHS PO Last administered on 06/29/17 19:42; Start 06/19/17 at 21:00 Lorazepam (Ativan) 0.5 mg DAILY PO Last administered on 06/26/17 07:57; Start 06/19/17 at 09:00; Stop 06/26/17 at 18:43; Status DC Lorazepam (Ativan) 0.5 mg PRN Q6HRS PRN PO ANXIETY / AGITATION; Start 06/19/17 at 00:30 Megestrol Acetate (Megace) 40 mg BID PO Last administered on 06/29/17 08:06; Start 06/19/17 at 09:00; Stop 06/29/17 at 11:57; Status DC Mirtazapine (Remeron) 15 mg QHS PO Last administered on 06/29/17 19:43; Start 06/19/17 at 21:00 Quetiapine Fumarate (SEROquel) 25 mg BID92 PO Last administered on 06/20/17 14 :00; Start 06/19/17 at 09:00; Stop 06/20/17 at 18:26; Status DC Quetiapine Fumarate (SEROquel) 100 mg QHS PO Last administered on 06/29/17 19: 43; Start 06/19/17 at 21:00 Memantine (Namenda) 10 mg BID PO Last administered on 06/29/17 19:43; Start at 09:00 Acetaminophen (Tylenol) 650 mg TID PO Last administered on 06/29/17 12:36; Start 06/19/17 at 09:00 Finasteride (Proscar) 5 mg DAILY PO Last administered on 06/29/17 08:07; Start 06/19/17 at 09:00 Flecainide Acetate (Tambocor) 50 mg BID PO Last administered on 06/29/17 19:43 ; Start 06/19/17 at 09:00 Multivitamins/ Calcium (Thera-M Plus) 1 tab DAILY PO Last administered on 08:08; Start 06/19/17 at 09:00 Olanzapine (ZyPREXA ZYDIS) 2.5 mg PRN Q2HR PRN PO PSYCHOSIS Last administered on 06/25/17 12:07; Start 06/19/17 at 18:30 Quetiapine Fumarate (SEROquel) 25 mg TID@0900,1300,1700 PO Last administered on 06/29/17 13:41; Start 06/21/17 at 09:00 Divalproex Sodium (Depakote Sprinkles) 125 mg BID PO Last administered on 08:30; Start 06/24/17 at 11:30; Stop 06/27/17 at 18:35; Status DC Vitamin D (Vitamin D3) 50,000 unit WEEKLY PO Last administered on 06/26/17 07: 57; Start 06/26/17 at 09:00 Lorazepam (Ativan) 0.25 mg DAILY PO Last administered on 06/28/17 08:26; Start 06/27/17 at 09:00; Stop 06/28/17 at 23:00; Status DC Divalproex Sodium (Depakote Sprinkles) 125 mg TID PO Last administered on t 12:36; Start 06/27/17 at 21:00; Stop 06/29/17 at 18:55; Status DC Megestrol Acetate (Megace) 40 mg BIDACBL PO ; Start 06/30/17 at 07:30 Divalproex Sodium (Depakote Sprinkles) 125 mg DAILY PO ; Start 06/30/17 at 09:00 Divalproex Sodium (Depakote Sprinkles) 250 mg DAILY16 PO ; Start 06/30/17 at 16: 00 Active Scripts Active Reported Seroquel (Quetiapine Fumarate) 100 Mg Tablet 100 Mg PO QHS Seroquel (Quetiapine Fumarate) 25 Mg Tablet 25 Mg PO BID92 Thera M Plus Tablet (Multivits,Ca,Minerals/Iron/FA) 1 Each Tablet 1 Tab PO DAILY Remeron (Mirtazapine) 15 Mg Tablet 15 Mg PO QHS Namenda Xr (Memantine Hcl) 28 Mg Cap.spr.24 28 Mg PO DAILY Flecainide Acetate 50 Mg Tablet 50 Mg PO BID Proscar (Finasteride) 5 Mg Tablet 5 Mg PO DAILY Aricept (Donepezil Hcl) 10 Mg Tablet 20 Mg PO QHS Ativan (Lorazepam) 0.5 Mg Tablet 0.5 Mg PO DAILY Ativan (Lorazepam) 0.5 Mg Tablet 0.5 Mg PO PRN Q6HRS PRN Megestrol Acetate 40 Mg Tablet 40 Mg PO BID Tylenol (Acetaminophen) 325 Mg Tablet 650 Mg PO TID Diagnosis: Problems: (1) Dementia (2) Disruptive behavior (3) Anxiety disorder (4) Dementia, vascular, with delusions (5) Dementia, vascular, 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
[2017-06-30 07:07] LABS: BASO # 0.1 x10^3/uL (0.0-0.2); BASO % 1 % (0-3); EOS # 0.1 x10^3/uL (0.0-0.7); EOS % 1 % (0-3); HEMATOCRIT 35.7 % (39.0-53.0); HEMOGLOBIN 12.1 g/dL (13.0-17.5); LYMPH # 1.4 x10^3/uL (1.0-4.8); LYMPH % 20 % (24-48); MEAN CORPUSCULAR HEMOGLOBIN 32 pg (25-35); MEAN CORPUSCULAR HGB CONC 34 g/dL (31-37); MEAN CORPUSCULAR VOLUME 96 fL (79-100); MONO # 0.6 x10^3/uL (0.0-1.1); MONO % 9 % (0-9); NEUT # 4.6 x10^3uL (1.8-7.7); NEUT % 68 % (31-73); PLATELET COUNT 287 x10^3/uL (140-400); RED BLOOD COUNT 3.74 x10^6/uL (4.30-5.70); RED CELL DISTRIBUTION WIDTH 14.9 % (11.5-14.5); WHITE BLOOD COUNT 6.7 x10^3/uL (4.0-11.0)
[2017-06-30 07:25] LABS: ALBUMIN/GLOBULIN RATIO 0.9 (1.0-1.7); CREATININE 1.3 mg/dL (0.7-1.3); GFR 52.5; POTASSIUM 4.6 mmol/L (3.5-5.1); TOTAL BILIRUBIN 0.3 mg/dL (0.2-1.0); TOTAL PROTEIN 6.4 g/dL (6.4-8.2)
[2017-06-30] MEDS: MEMANTINE 10 MG TABLET. PO SCH ×2 (08:44→19:35)
[2017-06-30] MEDS: ACETAMINOPHEN 325 MG TABLET PO SCH ×3 (08:44→19:35)
[2017-06-30] MEDS: MEGESTROL 40 MG TABLET. PO SCH ×2 (08:44→12:16)
[2017-06-30] MEDS: QUEtiapine 25 MG TABLET. PO SCH ×3 (08:44→17:04)
[2017-06-30] MEDS: FINASTERIDE 5 MG TABLET PO SCH (08:44)
[2017-06-30] MEDS: DIVALPROEX 125 MG CAP.SPRINK PO SCH ×2 (08:44→17:04)
[2017-06-30] MEDS: MULTIVITAMIN with MINERAL TABLET. PO SCH (08:44)
[2017-06-30] MEDS: FLECAINIDE 50 MG TABLET. PO SCH ×2 (09:00→19:38)
[2017-06-30] MEDS: MIRTAZAPINE 15 MG TABLET PO SCH (19:35)
[2017-06-30] MEDS: DONEPEZIL HCL 10 MG TABLET PO SCH (19:35)
[2017-06-30] MEDS: QUEtiapine 100 MG TABLET. PO SCH (19:35)
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
--- NOTE | 2017-06-30 23:03 | PDOC ---
Exam Evan Demential Exam: Evan Note: Please also refer to the separate dictated note~for this date of service dictated separately.~Patient seen individually. Discussed the patient with Nursing staff reviewed the chart.~Reviewed interim history and current functioning. Reviewed vital signs,~Labs/ Radiology~and current medications noted below. Continue current treatment with the changes noted in the dictated addendum note Assessment: Vital Signs: Vital Signs Date Time Temp Pulse Resp B/P (MAP) Pulse Ox O2 Delivery O2 Flow Rate FiO2 06/30/17 19:38 76 103/65 06/29/17 15:40 97.0 21 98 06/26/17 17:26 Room Air I&O Intake and Output 07/01/17 07:00 Intake Total 250 ml Balance 250 ml Intake Oral 250 ml Labs: Laboratory Tests Test 06/30/17 06:50 White Blood Count 6.7 x10^3/uL (4.0-11.0) Red Blood Count 3.74 x10^6/uL (4.30-5.70) L Hemoglobin 12.1 g/dL (13.0-17.5) L Hematocrit 35.7 % (39.0-53.0) L Mean Corpuscular Volume 96 fL (79-100) Mean Corpuscular Hemoglobin 32 pg (25-35) Mean Corpuscular Hemoglobin Concent 34 g/dL (31-37) Red Cell Distribution Width 14.9 % (11.5-14.5) H Platelet Count 287 x10^3/uL (140-400) Neutrophils (%) (Auto) 68 % (31-73) Lymphocytes (%) (Auto) 20 % (24-48) L Monocytes (%) (Auto) 9 % (0-9) Eosinophils (%) (Auto) 1 % (0-3) Basophils (%) (Auto) 1 % (0-3) Neutrophils # (Auto) 4.6 x10^3uL (1.8-7.7) Lymphocytes # (Auto) 1.4 x10^3/uL (1.0-4.8) Monocytes # (Auto) 0.6 x10^3/uL (0.0-1.1) Eosinophils # (Auto) 0.1 x10^3/uL (0.0-0.7) Basophils # (Auto) 0.1 x10^3/uL (0.0-0.2) Sodium Level 146 mmol/L (136-145) H Potassium Level 4.6 mmol/L (3.5-5.1) Chloride Level 112 mmol/L (98-107) H Carbon Dioxide Level 25 mmol/L (21-32) Anion Gap 9 (6-14) Blood Urea Nitrogen 38 mg/dL (8-26) H Creatinine 1.3 mg/dL (0.7-1.3) Estimated GFR (Cockcroft-Gault) 52.5 BUN/Creatinine Ratio 29 (6-20) H Glucose Level 105 mg/dL (70-99) H Calcium Level 9.0 mg/dL (8.5-10.1) Total Bilirubin 0.3 mg/dL (0.2-1.0) Aspartate Amino Transferase (AST) 17 U/L (15-37) Alanine Aminotransferase (ALT) 22 U/L (16-63) Alkaline Phosphatase 73 U/L (46-116) Total Protein 6.4 g/dL (6.4-8.2) Albumin 3.0 g/dL (3.4-5.0) L Albumin/Globulin Ratio 0.9 (1.0-1.7) L Current Medications: Meds: Current Medications Multi-Ingredient Ointment (Analgesic [place]) 1 talya PRN QID PRN TP MUSCLE PAIN; Start 06/19/17 at 00:30 Al Hydroxide/Mg Hydroxide (Mylanta Plus Xs) 15 ml PRN AFTMEALHC PRN PO DYSPEPSIA; Start 06/19/17 at 00:30 Magnesium Hydroxide (Milk Of Magnesia) 2,400 mg PRN QHS PRN PO CONSTIPATION Last administered on 06/27/17 15:45; Start 06/19/17 at 00:30 Donepezil HCl (Aricept) 20 mg QHS PO Last administered on 06/30/17 19:35; Start 06/19/17 at 21:00 Lorazepam (Ativan) 0.5 mg DAILY PO Last administered on 06/26/17 07:57; Start 06/19/17 at 09:00; Stop 06/26/17 at 18:43; Status DC Lorazepam (Ativan) 0.5 mg PRN Q6HRS PRN PO ANXIETY / AGITATION; Start 06/19/17 at 00:30 Megestrol Acetate (Megace) 40 mg BID PO Last administered on 06/29/17 08:06; Start 06/19/17 at 09:00; Stop 06/29/17 at 11:57; Status DC Mirtazapine (Remeron) 15 mg QHS PO Last administered on 06/30/17 19:35; Start 06/19/17 at 21:00 Quetiapine Fumarate (SEROquel) 25 mg BID92 PO Last administered on 06/20/17 14 :00; Start 06/19/17 at 09:00; Stop 06/20/17 at 18:26; Status DC Quetiapine Fumarate (SEROquel) 100 mg QHS PO Last administered on 06/30/17 19: 35; Start 06/19/17 at 21:00 Memantine (Namenda) 10 mg BID PO Last administered on 06/30/17 19:35; Start at 09:00 Acetaminophen (Tylenol) 650 mg TID PO Last administered on 06/30/17 19:35; Start 06/19/17 at 09:00 Finasteride (Proscar) 5 mg DAILY PO Last administered on 06/30/17 08:44; Start 06/19/17 at 09:00 Flecainide Acetate (Tambocor) 50 mg BID PO Last administered on 06/30/17 19:38 ; Start 06/19/17 at 09:00 Multivitamins/ Calcium (Thera-M Plus) 1 tab DAILY PO Last administered on 08:44; Start 06/19/17 at 09:00 Olanzapine (ZyPREXA ZYDIS) 2.5 mg PRN Q2HR PRN PO PSYCHOSIS Last administered on 06/25/17 12:07; Start 06/19/17 at 18:30 Quetiapine Fumarate (SEROquel) 25 mg TID@0900,1300,1700 PO Last administered on 06/30/17 17:04; Start 06/21/17 at 09:00 Divalproex Sodium (Depakote Sprinkles) 125 mg BID PO Last administered on 08:30; Start 06/24/17 at 11:30; Stop 06/27/17 at 18:35; Status DC Vitamin D (Vitamin D3) 50,000 unit WEEKLY PO Last administered on 06/26/17 07: 57; Start 06/26/17 at 09:00 Lorazepam (Ativan) 0.25 mg DAILY PO Last administered on 06/28/17 08:26; Start 06/27/17 at 09:00; Stop 06/28/17 at 23:00; Status DC Divalproex Sodium (Depakote Sprinkles) 125 mg TID PO Last administered on 12:36; Start 06/27/17 at 21:00; Stop 06/29/17 at 18:55; Status DC Megestrol Acetate (Megace) 40 mg BIDACBL PO Last administered on 06/30/17 12:16 ; Start 06/30/17 at 07:30 Divalproex Sodium (Depakote Sprinkles) 125 mg DAILY PO Last administered on 06/30 08:44; Start 06/30/17 at 09:00 Divalproex Sodium (Depakote Sprinkles) 250 mg DAILY16 PO Last administered on 17:04; Start 06/30/17 at 16:00 Active Scripts Active Reported Seroquel (Quetiapine Fumarate) 100 Mg Tablet 100 Mg PO QHS Seroquel (Quetiapine Fumarate) 25 Mg Tablet 25 Mg PO BID92 Thera M Plus Tablet (Multivits,Ca,Minerals/Iron/FA) 1 Each Tablet 1 Tab PO DAILY Remeron (Mirtazapine) 15 Mg Tablet 15 Mg PO QHS Namenda Xr (Memantine Hcl) 28 Mg Cap.spr.24 28 Mg PO DAILY Flecainide Acetate 50 Mg Tablet 50 Mg PO BID Proscar (Finasteride) 5 Mg Tablet 5 Mg PO DAILY Aricept (Donepezil Hcl) 10 Mg Tablet 20 Mg PO QHS Ativan (Lorazepam) 0.5 Mg Tablet 0.5 Mg PO DAILY Ativan (Lorazepam) 0.5 Mg Tablet 0.5 Mg PO PRN Q6HRS PRN Megestrol Acetate 40 Mg Tablet 40 Mg PO BID Tylenol (Acetaminophen) 325 Mg Tablet 650 Mg PO TID Diagnosis: Problems: (1) Dementia (2) Disruptive behavior (3) Anxiety disorder (4) Dementia, vascular, with delusions (5) Dementia, vascular, 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
[2017-07-01 07:49] LABS: VAL ACID 21 mcg/mL (50-100)
[2017-07-01] MEDS: MEGESTROL 40 MG TABLET. PO SCH ×2 (08:42→11:51)
[2017-07-01] MEDS: DIVALPROEX 125 MG CAP.SPRINK PO SCH ×2 (08:43→16:54)
[2017-07-01] MEDS: FINASTERIDE 5 MG TABLET PO SCH (08:44)
[2017-07-01] MEDS: QUEtiapine 25 MG TABLET. PO SCH ×3 (08:44→16:54)
[2017-07-01] MEDS: MEMANTINE 10 MG TABLET. PO SCH ×2 (08:44→21:00)
[2017-07-01] MEDS: ACETAMINOPHEN 325 MG TABLET PO SCH ×3 (08:45→21:00)
[2017-07-01] MEDS: MULTIVITAMIN with MINERAL TABLET. PO SCH (08:45)
[2017-07-01] MEDS: LORazepam 0.5 MG TABLET PO PRN (08:52)
[2017-07-01] MEDS: FLECAINIDE 50 MG TABLET. PO SCH ×2 (09:00→21:00)
[2017-07-01] MEDS ORDERED: MAGNESIUM CITRATE 296 ML SOLUTION. PO ONE (10:00)
--- NOTE | 2017-07-01 11:34 | PN ---
DATE: 06/30/2017 This is a late entry for 06/30/2017 and covers elements not covered in my initial note of 06/30/217. SUBJECTIVE: I met with the patient the evening of 06/30/2017. He has been aggressive with his nighttime medications previous evening and with cares and taken his medication during the day on 06/30/2017, but resistive with cares, gets more agitated as he has difficulty following what is happening due to his dementia, gets paranoid. REVIEW OF SYSTEMS: No CV, , pulmonary, eye, ENT system symptoms on review. Reliability poor. MENTAL STATUS EXAM: Oriented to himself. Insight, judgment, recent and remote memory, attention, concentration, fund of knowledge poor, consistent with his diagnosis. I mentioned in my initial note. PLAN: Continue current psychotropics, reviewed drug contractions, risk/benefit ratio favors no further change at this time. Depakote was adjusted. Repeat labs level awaited, may adjust to reach a therapeutic level. Starting 07/01/2017, we will stop the Aricept since it probably has little benefit at this stage of his dementia. Maintain Namenda 10 b.i.d., Seroquel is 25 t.i.d., which we will increase to 37.5 t.i.d. and continue 100 mg at bedtime. The above changes will be done on 07/01/2017. Reviewed drug interactions, risk/benefit ratio favors no further change other than noted. TONE SHABAZZ MD DR: RAYMUNDO/alex JOB#: [id number] / [id number]
[2017-07-01] MEDS: MAGNESIUM HYDROXIDE 2,400 MG/30 ML ORAL.SUSP. PO PRN (16:56)
--- NOTE | 2017-07-01 19:54 | PDOC ---
Exam Evan Demential Exam: Evan Note: Please also refer to the separate dictated note~for this date of service dictated separately.~Patient seen individually. Discussed the patient with Nursing staff reviewed the chart.~Reviewed interim history and current functioning. Reviewed vital signs,~Labs/ Radiology~and current medications noted below. Continue current treatment with the changes noted in the dictated addendum note Assessment: Vital Signs: Vital Signs Date Time Temp Pulse Resp B/P (MAP) Pulse Ox O2 Delivery O2 Flow Rate FiO2 06/30/17 19:38 76 103/65 06/29/17 15:40 97.0 21 98 06/26/17 17:26 Room Air I&O Intake and Output 07/02/17 07:00 Intake Total 300 ml Balance 300 ml Intake Oral 300 ml Labs: Laboratory Tests Test 07/01/17 07:28 Valproic Acid Level 21 mcg/mL (50-100) L Valproic Acid Last Dose Date 06/30/17 Valproic Acid Last Dose Time 1600 Current Medications: Meds: Current Medications Multi-Ingredient Ointment (Analgesic [place]) 1 talya PRN QID PRN TP MUSCLE PAIN; Start 06/19/17 at 00:30 Al Hydroxide/Mg Hydroxide (Mylanta Plus Xs) 15 ml PRN AFTMEALHC PRN PO DYSPEPSIA; Start 06/19/17 at 00:30 Magnesium Hydroxide (Milk Of Magnesia) 2,400 mg PRN QHS PRN PO CONSTIPATION Last administered on 07/01/17 16:56; Start 06/19/17 at 00:30 Donepezil HCl (Aricept) 20 mg QHS PO Last administered on 06/30/17 19:35; Start 06/19/17 at 21:00; Stop 07/01/17 at 12:19; Status DC Lorazepam (Ativan) 0.5 mg DAILY PO Last administered on 06/26/17 07:57; Start 06/19/17 at 09:00; Stop 06/26/17 at 18:43; Status DC Lorazepam (Ativan) 0.5 mg PRN Q6HRS PRN PO ANXIETY / AGITATION Last administered on 07/01/17 08:52; Start 06/19/17 at 00:30 Megestrol Acetate (Megace) 40 mg BID PO Last administered on 06/29/17 08:06; Start 06/19/17 at 09:00; Stop 06/29/17 at 11:57; Status DC Mirtazapine (Remeron) 15 mg QHS PO Last administered on 06/30/17 19:35; Start 06/19/17 at 21:00 Quetiapine Fumarate (SEROquel) 25 mg BID92 PO Last administered on 06/20/17 14 :00; Start 06/19/17 at 09:00; Stop 06/20/17 at 18:26; Status DC Quetiapine Fumarate (SEROquel) 100 mg QHS PO Last administered on 06/30/17 19: 35; Start 06/19/17 at 21:00 Memantine (Namenda) 10 mg BID PO Last administered on 07/01/17 08:44; Start at 09:00 Acetaminophen (Tylenol) 650 mg TID PO Last administered on 07/01/17 13:27; Start 06/19/17 at 09:00 Finasteride (Proscar) 5 mg DAILY PO Last administered on 07/01/17 08:44; Start 06/19/17 at 09:00 Flecainide Acetate (Tambocor) 50 mg BID PO Last administered on 06/30/17 19:38 ; Start 06/19/17 at 09:00 Multivitamins/ Calcium (Thera-M Plus) 1 tab DAILY PO Last administered on 08:45; Start 06/19/17 at 09:00 Olanzapine (ZyPREXA ZYDIS) 2.5 mg PRN Q2HR PRN PO PSYCHOSIS Last administered on 06/25/17 12:07; Start 06/19/17 at 18:30 Quetiapine Fumarate (SEROquel) 25 mg TID@0900,1300,1700 PO Last administered on 07/01/17 08:44; Start 06/21/17 at 09:00; Stop 07/01/17 at 12:19; Status DC Divalproex Sodium (Depakote Sprinkles) 125 mg BID PO Last administered on 08:30; Start 06/24/17 at 11:30; Stop 06/27/17 at 18:35; Status DC Vitamin D (Vitamin D3) 50,000 unit WEEKLY PO Last administered on 06/26/17 07: 57; Start 06/26/17 at 09:00 Lorazepam (Ativan) 0.25 mg DAILY PO Last administered on 06/28/17 08:26; Start 06/27/17 at 09:00; Stop 06/28/17 at 23:00; Status DC Divalproex Sodium (Depakote Sprinkles) 125 mg TID PO Last administered on 12:36; Start 06/27/17 at 21:00; Stop 06/29/17 at 18:55; Status DC Megestrol Acetate (Megace) 40 mg BIDACBL PO Last administered on 07/01/17 11: 51; Start 06/30/17 at 07:30 Divalproex Sodium (Depakote Sprinkles) 125 mg DAILY PO Last administered on 08:43; Start 06/30/17 at 09:00 Divalproex Sodium (Depakote Sprinkles) 250 mg DAILY16 PO Last administered on 16:54; Start 06/30/17 at 16:00 Magnesium Citrate (Citroma) 296 ml 1X ONCE PO Last administered on 07/01/17 11:51; Start 07/01/17 at 10:00; Stop 07/01/17 at 10:01; Status DC Quetiapine Fumarate (SEROquel) 37.5 mg TID@0900,1300,1700 PO Last administered on 07/01/17 16:54; Start 07/01/17 at 13:00 Active Scripts Active Reported Seroquel (Quetiapine Fumarate) 100 Mg Tablet 100 Mg PO QHS Seroquel (Quetiapine Fumarate) 25 Mg Tablet 25 Mg PO BID92 Thera M Plus Tablet (Multivits,Ca,Minerals/Iron/FA) 1 Each Tablet 1 Tab PO DAILY Remeron (Mirtazapine) 15 Mg Tablet 15 Mg PO QHS Namenda Xr (Memantine Hcl) 28 Mg Cap.spr.24 28 Mg PO DAILY Flecainide Acetate 50 Mg Tablet 50 Mg PO BID Proscar (Finasteride) 5 Mg Tablet 5 Mg PO DAILY Aricept (Donepezil Hcl) 10 Mg Tablet 20 Mg PO QHS Ativan (Lorazepam) 0.5 Mg Tablet 0.5 Mg PO DAILY Ativan (Lorazepam) 0.5 Mg Tablet 0.5 Mg PO PRN Q6HRS PRN Megestrol Acetate 40 Mg Tablet 40 Mg PO BID Tylenol (Acetaminophen) 325 Mg Tablet 650 Mg PO TID Diagnosis: Problems: (1) Dementia (2) Disruptive behavior (3) Anxiety disorder (4) Dementia, vascular, with delusions (5) Dementia, vascular, 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
[2017-07-01] MEDS: QUEtiapine 100 MG TABLET. PO SCH (21:00)
[2017-07-01] MEDS: MIRTAZAPINE 15 MG TABLET PO SCH (21:00)
[2017-07-02 06:04] VITALS: BP 142/85
[2017-07-02] MEDS: MEGESTROL 40 MG TABLET. PO SCH ×2 (09:26→12:11)
[2017-07-02] MEDS: DIVALPROEX 125 MG CAP.SPRINK PO SCH ×2 (09:27→17:00)
[2017-07-02] MEDS: QUEtiapine 25 MG TABLET. PO SCH ×3 (09:27→17:00)
[2017-07-02] MEDS: FINASTERIDE 5 MG TABLET PO SCH (09:27)
[2017-07-02] MEDS: MEMANTINE 10 MG TABLET. PO SCH ×2 (09:27→19:17)
[2017-07-02] MEDS: FLECAINIDE 50 MG TABLET. PO SCH ×2 (09:28→19:32)
[2017-07-02] MEDS: MULTIVITAMIN with MINERAL TABLET. PO SCH (09:28)
[2017-07-02] MEDS: ACETAMINOPHEN 325 MG TABLET PO SCH ×3 (09:28→19:17)
[2017-07-02 15:51] VITALS: BP 121/67
[2017-07-02] MEDS: MIRTAZAPINE 15 MG TABLET PO SCH (19:17)
[2017-07-02] MEDS: QUEtiapine 100 MG TABLET. PO SCH (19:17)
--- NOTE | 2017-07-02 19:37 | PDOC ---
Exam Evan Demential Exam: Evan Note: Please also refer to the separate dictated note~for this date of service dictated separately.~Patient seen individually. Discussed the patient with Nursing staff reviewed the chart.~Reviewed interim history and current functioning. Reviewed vital signs,~Labs/ Radiology~and current medications noted below. Continue current treatment with the changes noted in the dictated addendum note Assessment: Vital Signs: Vital Signs Date Time Temp Pulse Resp B/P (MAP) Pulse Ox O2 Delivery O2 Flow Rate FiO2 07/02/17 19:32 85 121/67 07/02/17 15:51 97.9 20 95 06/26/17 17:26 Room Air I&O Intake and Output 07/03/17 07:00 Intake Total 760 ml Balance 760 ml Intake Oral 760 ml # Bowel Movements 1 Current Medications: Meds: Current Medications Multi-Ingredient Ointment (Analgesic [place]) 1 talya PRN QID PRN TP MUSCLE PAIN; Start 06/19/17 at 00:30 Al Hydroxide/Mg Hydroxide (Mylanta Plus Xs) 15 ml PRN AFTMEALHC PRN PO DYSPEPSIA; Start 06/19/17 at 00:30 Magnesium Hydroxide (Milk Of Magnesia) 2,400 mg PRN QHS PRN PO CONSTIPATION Last administered on 07/01/17 16:56; Start 06/19/17 at 00:30 Donepezil HCl (Aricept) 20 mg QHS PO Last administered on 06/30/17 19:35; Start 06/19/17 at 21:00; Stop 07/01/17 at 12:19; Status DC Lorazepam (Ativan) 0.5 mg DAILY PO Last administered on 06/26/17 07:57; Start 06/19/17 at 09:00; Stop 06/26/17 at 18:43; Status DC Lorazepam (Ativan) 0.5 mg PRN Q6HRS PRN PO ANXIETY / AGITATION Last administered on 07/01/17 08:52; Start 06/19/17 at 00:30 Megestrol Acetate (Megace) 40 mg BID PO Last administered on 06/29/17 08:06; Start 06/19/17 at 09:00; Stop 06/29/17 at 11:57; Status DC Mirtazapine (Remeron) 15 mg QHS PO Last administered on 07/02/17 19:17; Start 06/19/17 at 21:00 Quetiapine Fumarate (SEROquel) 25 mg BID92 PO Last administered on 06/20/17 14 :00; Start 06/19/17 at 09:00; Stop 06/20/17 at 18:26; Status DC Quetiapine Fumarate (SEROquel) 100 mg QHS PO Last administered on 07/02/17 19: 17; Start 06/19/17 at 21:00 Memantine (Namenda) 10 mg BID PO Last administered on 07/02/17 19:17; Start at 09:00 Acetaminophen (Tylenol) 650 mg TID PO Last administered on 07/02/17 19:17; Start 06/19/17 at 09:00 Finasteride (Proscar) 5 mg DAILY PO Last administered on 07/02/17 09:27; Start 06/19/17 at 09:00 Flecainide Acetate (Tambocor) 50 mg BID PO Last administered on 07/02/17 19:32 ; Start 06/19/17 at 09:00 Multivitamins/ Calcium (Thera-M Plus) 1 tab DAILY PO Last administered on 09:28; Start 06/19/17 at 09:00 Olanzapine (ZyPREXA ZYDIS) 2.5 mg PRN Q2HR PRN PO PSYCHOSIS Last administered on 06/25/17 12:07; Start 06/19/17 at 18:30 Quetiapine Fumarate (SEROquel) 25 mg TID@0900,1300,1700 PO Last administered on 07/01/17 08:44; Start 06/21/17 at 09:00; Stop 07/01/17 at 12:19; Status DC Divalproex Sodium (Depakote Sprinkles) 125 mg BID PO Last administered on 08:30; Start 06/24/17 at 11:30; Stop 06/27/17 at 18:35; Status DC Vitamin D (Vitamin D3) 50,000 unit WEEKLY PO Last administered on 06/26/17 07: 57; Start 06/26/17 at 09:00 Lorazepam (Ativan) 0.25 mg DAILY PO Last administered on 06/28/17 08:26; Start 06/27/17 at 09:00; Stop 06/28/17 at 23:00; Status DC Divalproex Sodium (Depakote Sprinkles) 125 mg TID PO Last administered on 12:36; Start 06/27/17 at 21:00; Stop 06/29/17 at 18:55; Status DC Megestrol Acetate (Megace) 40 mg BIDACBL PO Last administered on 07/02/17 12: 11; Start 06/30/17 at 07:30 Divalproex Sodium (Depakote Sprinkles) 125 mg DAILY PO Last administered on 09:27; Start 06/30/17 at 09:00; Stop 07/02/17 at 18:35; Status DC Divalproex Sodium (Depakote Sprinkles) 250 mg DAILY16 PO Last administered on 17:00; Start 06/30/17 at 16:00; Stop 07/02/17 at 18:35; Status DC Magnesium Citrate (Citroma) 296 ml 1X ONCE PO Last administered on 07/01/17 11:51; Start 07/01/17 at 10:00; Stop 07/01/17 at 10:01; Status DC Quetiapine Fumarate (SEROquel) 37.5 mg TID@0900,1300,1700 PO Last administered on 07/02/17 17:00; Start 07/01/17 at 13:00 Divalproex Sodium (Depakote Sprinkles) 250 mg DAILY PO ; Start 07/03/17 at 09:00 Divalproex Sodium (Depakote Sprinkles) 125 mg DAILY16 PO ; Start 07/03/17 at 16: 00 Divalproex Sodium (Depakote Sprinkles) 250 mg HS PO Last administered on 19:31; Start 07/02/17 at 21:00 Active Scripts Active Reported Seroquel (Quetiapine Fumarate) 100 Mg Tablet 100 Mg PO QHS Seroquel (Quetiapine Fumarate) 25 Mg Tablet 25 Mg PO BID92 Thera M Plus Tablet (Multivits,Ca,Minerals/Iron/FA) 1 Each Tablet 1 Tab PO DAILY Remeron (Mirtazapine) 15 Mg Tablet 15 Mg PO QHS Namenda Xr (Memantine Hcl) 28 Mg Cap.spr.24 28 Mg PO DAILY Flecainide Acetate 50 Mg Tablet 50 Mg PO BID Proscar (Finasteride) 5 Mg Tablet 5 Mg PO DAILY Aricept (Donepezil Hcl) 10 Mg Tablet 20 Mg PO QHS Ativan (Lorazepam) 0.5 Mg Tablet 0.5 Mg PO DAILY Ativan (Lorazepam) 0.5 Mg Tablet 0.5 Mg PO PRN Q6HRS PRN Megestrol Acetate 40 Mg Tablet 40 Mg PO BID Tylenol (Acetaminophen) 325 Mg Tablet 650 Mg PO TID Diagnosis: Problems: (1) Dementia (2) Disruptive behavior (3) Anxiety disorder (4) Dementia, vascular, with delusions (5) Dementia, vascular, 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
[2017-07-02] MEDS ORDERED: DIVALPROEX 125 MG CAP.SPRINK PO SCH (21:00)
--- NOTE | 2017-07-03 01:06 | PN ---
DATE: 07/01/2017 SUBJECTIVE: This is a late entry 07/01/2017, covers elements not covered in my initial note of 07/01/2017. Met with the patient evening of 07/01/2017. He has had a difficult day during the day on 07/01/2017 being agitated, aggressive, difficulty with cares, paranoid, and impulsive per nursing report. REVIEW OF SYSTEMS: No CV, , pulmonary, eye, or ENT system symptoms on review. Reliability poor. MENTAL STATUS EXAM: Oriented to himself. Insight, judgment, recent and remote memory, attention, concentration, and fund of knowledge poor consistent with his diagnosis. He is not very verbal. LABORATORY DATA: Reviewed. IMPRESSION: Unchanged from initial note. PLAN: The patient's Depakote has been adjusted. Repeat labs level. Continue rest of the psychotropics mentioned in my initial route. Reviewed drug interactions. Risk/benefit ratio favors no further change at this time. TONE SHABAZZ MD DR: RAYMUNDO/alex JOB#: [id number] / [id number]
[2017-07-03] MEDS: MEGESTROL 40 MG TABLET. PO SCH ×2 (07:43→11:35)
[2017-07-03] MEDS: MULTIVITAMIN with MINERAL TABLET. PO SCH (08:42)
[2017-07-03] MEDS: FINASTERIDE 5 MG TABLET PO SCH (08:42)
[2017-07-03] MEDS: QUEtiapine 25 MG TABLET. PO SCH ×3 (08:42→16:39)
[2017-07-03] MEDS: CHOLECALCIFEROL (VITAMIN D3) 50,000 UNIT CAPSULE PO SCH (08:42)
[2017-07-03] MEDS: MEMANTINE 10 MG TABLET. PO SCH ×2 (08:43→19:11)
[2017-07-03] MEDS: FLECAINIDE 50 MG TABLET. PO SCH ×2 (08:44→19:16)
[2017-07-03] MEDS: ACETAMINOPHEN 325 MG TABLET PO SCH ×3 (08:44→19:12)
[2017-07-03] MEDS ORDERED: DIVALPROEX 125 MG CAP.SPRINK PO SCH ×2 (09:00→16:00)
[2017-07-03 15:57] VITALS: BP 142/69
[2017-07-03] MEDS: DIVALPROEX 125 MG CAP.SPRINK PO SCH (19:11)
[2017-07-03] MEDS: QUEtiapine 100 MG TABLET. PO SCH (19:11)
[2017-07-03] MEDS: MIRTAZAPINE 15 MG TABLET PO SCH (19:11)
--- NOTE | 2017-07-03 19:35 | PDOC ---
Exam Evan Demential Exam: Evan Note: Please also refer to the separate dictated note~for this date of service dictated separately.~Patient seen individually. Discussed the patient with Nursing staff reviewed the chart.~Reviewed interim history and current functioning. Reviewed vital signs,~Labs/ Radiology~and current medications noted below. Continue current treatment with the changes noted in the dictated addendum note Assessment: Vital Signs: Vital Signs Date Time Temp Pulse Resp B/P (MAP) Pulse Ox O2 Delivery O2 Flow Rate FiO2 07/03/17 19:16 90 142/69 07/03/17 15:57 97.6 17 97 I&O Intake and Output 07/04/17 06:59 Intake Total 720 ml Balance 720 ml Intake Oral 720 ml Current Medications: Meds: Current Medications Multi-Ingredient Ointment (Analgesic [place]) 1 talya PRN QID PRN TP MUSCLE PAIN; Start 06/19/17 at 00:30 Al Hydroxide/Mg Hydroxide (Mylanta Plus Xs) 15 ml PRN AFTMEALHC PRN PO DYSPEPSIA; Start 06/19/17 at 00:30 Magnesium Hydroxide (Milk Of Magnesia) 2,400 mg PRN QHS PRN PO CONSTIPATION Last administered on 07/01/17 16:56; Start 06/19/17 at 00:30 Donepezil HCl (Aricept) 20 mg QHS PO Last administered on 06/30/17 19:35; Start 06/19/17 at 21:00; Stop 07/01/17 at 12:19; Status DC Lorazepam (Ativan) 0.5 mg DAILY PO Last administered on 06/26/17 07:57; Start 06/19/17 at 09:00; Stop 06/26/17 at 18:43; Status DC Lorazepam (Ativan) 0.5 mg PRN Q6HRS PRN PO ANXIETY / AGITATION Last administered on 07/01/17 08:52; Start 06/19/17 at 00:30 Megestrol Acetate (Megace) 40 mg BID PO Last administered on 06/29/17 08:06; Start 06/19/17 at 09:00; Stop 06/29/17 at 11:57; Status DC Mirtazapine (Remeron) 15 mg QHS PO Last administered on 07/03/17 19:11; Start 06/19/17 at 21:00 Quetiapine Fumarate (SEROquel) 25 mg BID92 PO Last administered on 06/20/17 14 :00; Start 06/19/17 at 09:00; Stop 06/20/17 at 18:26; Status DC Quetiapine Fumarate (SEROquel) 100 mg QHS PO Last administered on 07/03/17 19: 11; Start 06/19/17 at 21:00 Memantine (Namenda) 10 mg BID PO Last administered on 07/03/17 19:11; Start at 09:00 Acetaminophen (Tylenol) 650 mg TID PO Last administered on 07/03/17 19:12; Start 06/19/17 at 09:00 Finasteride (Proscar) 5 mg DAILY PO Last administered on 07/03/17 08:42; Start 06/19/17 at 09:00 Flecainide Acetate (Tambocor) 50 mg BID PO Last administered on 07/03/17 19:16 ; Start 06/19/17 at 09:00 Multivitamins/ Calcium (Thera-M Plus) 1 tab DAILY PO Last administered on 08:42; Start 06/19/17 at 09:00 Olanzapine (ZyPREXA ZYDIS) 2.5 mg PRN Q2HR PRN PO PSYCHOSIS Last administered on 06/25/17 12:07; Start 06/19/17 at 18:30 Quetiapine Fumarate (SEROquel) 25 mg TID@0900,1300,1700 PO Last administered on 07/01/17 08:44; Start 06/21/17 at 09:00; Stop 07/01/17 at 12:19; Status DC Divalproex Sodium (Depakote Sprinkles) 125 mg BID PO Last administered on 08:30; Start 06/24/17 at 11:30; Stop 06/27/17 at 18:35; Status DC Vitamin D (Vitamin D3) 50,000 unit WEEKLY PO Last administered on 07/03/17 08: 42; Start 06/26/17 at 09:00 Lorazepam (Ativan) 0.25 mg DAILY PO Last administered on 06/28/17 08:26; Start 06/27/17 at 09:00; Stop 06/28/17 at 23:00; Status DC Divalproex Sodium (Depakote Sprinkles) 125 mg TID PO Last administered on 12:36; Start 06/27/17 at 21:00; Stop 06/29/17 at 18:55; Status DC Megestrol Acetate (Megace) 40 mg BIDACBL PO Last administered on 07/03/17 11: 35; Start 06/30/17 at 07:30 Divalproex Sodium (Depakote Sprinkles) 125 mg DAILY PO Last administered on 09:27; Start 06/30/17 at 09:00; Stop 07/02/17 at 18:35; Status DC Divalproex Sodium (Depakote Sprinkles) 250 mg DAILY16 PO Last administered on 17:00; Start 06/30/17 at 16:00; Stop 07/02/17 at 18:35; Status DC Magnesium Citrate (Citroma) 296 ml 1X ONCE PO Last administered on 07/01/17 11:51; Start 07/01/17 at 10:00; Stop 07/01/17 at 10:01; Status DC Quetiapine Fumarate (SEROquel) 37.5 mg TID@0900,1300,1700 PO Last administered on 07/03/17 16:39; Start 07/01/17 at 13:00 Divalproex Sodium (Depakote Sprinkles) 250 mg DAILY PO Last administered on 08:42; Start 07/03/17 at 09:00; Stop 07/03/17 at 18:31; Status DC Divalproex Sodium (Depakote Sprinkles) 125 mg DAILY16 PO Last administered on 16:38; Start 07/03/17 at 16:00; Stop 07/03/17 at 18:31; Status DC Divalproex Sodium (Depakote Sprinkles) 250 mg HS PO Last administered on 19:31; Start 07/02/17 at 21:00; Stop 07/03/17 at 18:31; Status DC Divalproex Sodium (Depakote Sprinkles) 250 mg TID PO Last administered on 9/12/ 17at 19:11; Start 07/03/17 at 21:00 Active Scripts Active Reported Seroquel (Quetiapine Fumarate) 100 Mg Tablet 100 Mg PO QHS Seroquel (Quetiapine Fumarate) 25 Mg Tablet 25 Mg PO BID92 Thera M Plus Tablet (Multivits,Ca,Minerals/Iron/FA) 1 Each Tablet 1 Tab PO DAILY Remeron (Mirtazapine) 15 Mg Tablet 15 Mg PO QHS Namenda Xr (Memantine Hcl) 28 Mg Cap.spr.24 28 Mg PO DAILY Flecainide Acetate 50 Mg Tablet 50 Mg PO BID Proscar (Finasteride) 5 Mg Tablet 5 Mg PO DAILY Aricept (Donepezil Hcl) 10 Mg Tablet 20 Mg PO QHS Ativan (Lorazepam) 0.5 Mg Tablet 0.5 Mg PO DAILY Ativan (Lorazepam) 0.5 Mg Tablet 0.5 Mg PO PRN Q6HRS PRN Megestrol Acetate 40 Mg Tablet 40 Mg PO BID Tylenol (Acetaminophen) 325 Mg Tablet 650 Mg PO TID Diagnosis: Problems: (1) Dementia (2) Disruptive behavior (3) Anxiety disorder (4) Dementia, vascular, with delusions (5) Dementia, vascular, 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
--- NOTE | 2017-07-04 01:20 | PN ---
DATE: 07/02/2017 This is a late entry 07/02/2017, cover the elements not covered in my initial note of 07/02/2017. SUBJECTIVE: The patient was seen individually evening of 07/02/2017, for this evaluation. The patient remains extremely confused, intermittently agitated, restless, and anxious. He was combative with peers. REVIEW OF SYSTEMS: No CV, , pulmonary, eye, ENT system symptoms on review. Reliability poor. MENTAL STATUS EXAM: Oriented to himself. Insight, judgment, recent and remote memory, attention, concentration, fund of knowledge poor, consistent with his diagnosis mentioned in my initial note. PLAN: The patient's valproic acid level on the is 21. We will increase the Depakote to 250 mg a.m. and p.m. 125 in the afternoon. Check CBC, CMP level in 3 days. Maintain the rest of the psychotropics unchanged. Reviewed drug interactions, risk/benefit ratio favors no further change. TONE SHABAZZ MD DR: RAYMUNDO/alex JOB#: [id number] / [id number]
[2017-07-04 06:01] VITALS: BP 127/79
[2017-07-04] MEDS: MULTIVITAMIN with MINERAL TABLET. PO SCH (08:20)
[2017-07-04] MEDS: MEMANTINE 10 MG TABLET. PO SCH ×2 (08:20→19:22)
[2017-07-04] MEDS: DIVALPROEX 125 MG CAP.SPRINK PO SCH ×3 (08:20→19:22)
[2017-07-04] MEDS: ACETAMINOPHEN 325 MG TABLET PO SCH ×3 (08:20→19:24)
[2017-07-04] MEDS: FINASTERIDE 5 MG TABLET PO SCH (08:21)
[2017-07-04] MEDS: FLECAINIDE 50 MG TABLET. PO SCH ×2 (08:21→19:23)
[2017-07-04] MEDS: QUEtiapine 25 MG TABLET. PO SCH ×3 (08:21→17:21)
[2017-07-04] MEDS: MEGESTROL 40 MG TABLET. PO SCH ×2 (08:21→12:13)
[2017-07-04 16:10] VITALS: BP 139/67
[2017-07-04] MEDS: QUEtiapine 100 MG TABLET. PO SCH (19:22)
[2017-07-04] MEDS: MIRTAZAPINE 15 MG TABLET PO SCH (19:22)
--- NOTE | 2017-07-04 19:44 | PDOC ---
Exam Evan Demential Exam: Evan Note: Please also refer to the separate dictated note~for this date of service dictated separately.~Patient seen individually. Discussed the patient with Nursing staff reviewed the chart.~Reviewed interim history and current functioning. Reviewed vital signs,~Labs/ Radiology~and current medications noted below. Continue current treatment with the changes noted in the dictated addendum note Assessment: Vital Signs: Vital Signs Date Time Temp Pulse Resp B/P (MAP) Pulse Ox O2 Delivery O2 Flow Rate FiO2 07/04/17 19:23 84 139/67 07/04/17 16:10 97.8 16 97 I&O Intake and Output 07/05/17 07:00 Intake Total 820 ml Balance 820 ml Intake Oral 820 ml Current Medications: Meds: Current Medications Multi-Ingredient Ointment (Analgesic [place]) 1 talya PRN QID PRN TP MUSCLE PAIN; Start 06/19/17 at 00:30 Al Hydroxide/Mg Hydroxide (Mylanta Plus Xs) 15 ml PRN AFTMEALHC PRN PO DYSPEPSIA; Start 06/19/17 at 00:30 Magnesium Hydroxide (Milk Of Magnesia) 2,400 mg PRN QHS PRN PO CONSTIPATION Last administered on 07/01/17 16:56; Start 06/19/17 at 00:30 Donepezil HCl (Aricept) 20 mg QHS PO Last administered on 06/30/17 19:35; Start 06/19/17 at 21:00; Stop 07/01/17 at 12:19; Status DC Lorazepam (Ativan) 0.5 mg DAILY PO Last administered on 06/26/17 07:57; Start 06/19/17 at 09:00; Stop 06/26/17 at 18:43; Status DC Lorazepam (Ativan) 0.5 mg PRN Q6HRS PRN PO ANXIETY / AGITATION Last administered on 07/01/17 08:52; Start 06/19/17 at 00:30 Megestrol Acetate (Megace) 40 mg BID PO Last administered on 06/29/17 08:06; Start 06/19/17 at 09:00; Stop 06/29/17 at 11:57; Status DC Mirtazapine (Remeron) 15 mg QHS PO Last administered on 07/04/17 19:22; Start 06/19/17 at 21:00 Quetiapine Fumarate (SEROquel) 25 mg BID92 PO Last administered on 06/20/17 14 :00; Start 06/19/17 at 09:00; Stop 06/20/17 at 18:26; Status DC Quetiapine Fumarate (SEROquel) 100 mg QHS PO Last administered on 07/04/17 19: 22; Start 06/19/17 at 21:00 Memantine (Namenda) 10 mg BID PO Last administered on 07/04/17 19:22; Start at 09:00 Acetaminophen (Tylenol) 650 mg TID PO Last administered on 07/04/17 19:24; Start 06/19/17 at 09:00 Finasteride (Proscar) 5 mg DAILY PO Last administered on 07/04/17 08:21; Start 06/19/17 at 09:00 Flecainide Acetate (Tambocor) 50 mg BID PO Last administered on 07/04/17 19:23 ; Start 06/19/17 at 09:00 Multivitamins/ Calcium (Thera-M Plus) 1 tab DAILY PO Last administered on 08:20; Start 06/19/17 at 09:00 Olanzapine (ZyPREXA ZYDIS) 2.5 mg PRN Q2HR PRN PO PSYCHOSIS Last administered on 06/25/17 12:07; Start 06/19/17 at 18:30 Quetiapine Fumarate (SEROquel) 25 mg TID@0900,1300,1700 PO Last administered on 07/01/17 08:44; Start 06/21/17 at 09:00; Stop 07/01/17 at 12:19; Status DC Divalproex Sodium (Depakote Sprinkles) 125 mg BID PO Last administered on 08:30; Start 06/24/17 at 11:30; Stop 06/27/17 at 18:35; Status DC Vitamin D (Vitamin D3) 50,000 unit WEEKLY PO Last administered on 07/03/17 08: 42; Start 06/26/17 at 09:00 Lorazepam (Ativan) 0.25 mg DAILY PO Last administered on 06/28/17 08:26; Start 06/27/17 at 09:00; Stop 06/28/17 at 23:00; Status DC Divalproex Sodium (Depakote Sprinkles) 125 mg TID PO Last administered on 12:36; Start 06/27/17 at 21:00; Stop 06/29/17 at 18:55; Status DC Megestrol Acetate (Megace) 40 mg BIDACBL PO Last administered on 07/04/17 12: 13; Start 06/30/17 at 07:30 Divalproex Sodium (Depakote Sprinkles) 125 mg DAILY PO Last administered on 09:27; Start 06/30/17 at 09:00; Stop 07/02/17 at 18:35; Status DC Divalproex Sodium (Depakote Sprinkles) 250 mg DAILY16 PO Last administered on 17:00; Start 06/30/17 at 16:00; Stop 07/02/17 at 18:35; Status DC Magnesium Citrate (Citroma) 296 ml 1X ONCE PO Last administered on 07/01/17 11:51; Start 07/01/17 at 10:00; Stop 07/01/17 at 10:01; Status DC Quetiapine Fumarate (SEROquel) 37.5 mg TID@0900,1300,1700 PO Last administered on 07/04/17 17:21; Start 07/01/17 at 13:00 Divalproex Sodium (Depakote Sprinkles) 250 mg DAILY PO Last administered on 08:42; Start 07/03/17 at 09:00; Stop 07/03/17 at 18:31; Status DC Divalproex Sodium (Depakote Sprinkles) 125 mg DAILY16 PO Last administered on 16:38; Start 07/03/17 at 16:00; Stop 07/03/17 at 18:31; Status DC Divalproex Sodium (Depakote Sprinkles) 250 mg HS PO Last administered on 19:31; Start 07/02/17 at 21:00; Stop 07/03/17 at 18:31; Status DC Divalproex Sodium (Depakote Sprinkles) 250 mg TID PO Last administered on 9/13/ 17at 19:22; Start 07/03/17 at 21:00 Active Scripts Active Reported Seroquel (Quetiapine Fumarate) 100 Mg Tablet 100 Mg PO QHS Seroquel (Quetiapine Fumarate) 25 Mg Tablet 25 Mg PO BID92 Thera M Plus Tablet (Multivits,Ca,Minerals/Iron/FA) 1 Each Tablet 1 Tab PO DAILY Remeron (Mirtazapine) 15 Mg Tablet 15 Mg PO QHS Namenda Xr (Memantine Hcl) 28 Mg Cap.spr.24 28 Mg PO DAILY Flecainide Acetate 50 Mg Tablet 50 Mg PO BID Proscar (Finasteride) 5 Mg Tablet 5 Mg PO DAILY Aricept (Donepezil Hcl) 10 Mg Tablet 20 Mg PO QHS Ativan (Lorazepam) 0.5 Mg Tablet 0.5 Mg PO DAILY Ativan (Lorazepam) 0.5 Mg Tablet 0.5 Mg PO PRN Q6HRS PRN Megestrol Acetate 40 Mg Tablet 40 Mg PO BID Tylenol (Acetaminophen) 325 Mg Tablet 650 Mg PO TID Diagnosis: Problems: (1) Dementia (2) Disruptive behavior (3) Anxiety disorder (4) Dementia, vascular, with delusions (5) Dementia, vascular, 

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
[2017-07-05 05:44] VITALS: BP 131/75
[2017-07-05 07:18] LABS: BASO % 1 % (0-3); EOS # 0.1 x10^3/uL (0.0-0.7); EOS % 1 % (0-3); HEMATOCRIT 35.8 % (39.0-53.0); HEMOGLOBIN 12.1 g/dL (13.0-17.5); LYMPH # 1.2 x10^3/uL (1.0-4.8); LYMPH % 15 % (24-48); MEAN CORPUSCULAR HEMOGLOBIN 32 pg (25-35); MEAN CORPUSCULAR HGB CONC 34 g/dL (31-37); MEAN CORPUSCULAR VOLUME 95 fL (79-100); MONO # 0.7 x10^3/uL (0.0-1.1); MONO % 8 % (0-9); NEUT # 5.9 x10^3uL (1.8-7.7); NEUT % 75 % (31-73); PLATELET COUNT 282 x10^3/uL (140-400); RED BLOOD COUNT 3.76 x10^6/uL (4.30-5.70); RED CELL DISTRIBUTION WIDTH 15.2 % (11.5-14.5); WHITE BLOOD COUNT 7.9 x10^3/uL (4.0-11.0)
[2017-07-05 07:28] LABS: ALBUMIN 3.2 g/dL (3.4-5.0); ALBUMIN/GLOBULIN RATIO 0.9 (1.0-1.7); CALCIUM 9.2 mg/dL (8.5-10.1); CREATININE 1.4 mg/dL (0.7-1.3); GFR 48.2; POTASSIUM 4.9 mmol/L (3.5-5.1); TOTAL BILIRUBIN 0.6 mg/dL (0.2-1.0); TOTAL PROTEIN 6.8 g/dL (6.4-8.2)
[2017-07-05] MEDS: MEMANTINE 10 MG TABLET. PO SCH ×2 (07:44→19:46)
[2017-07-05] MEDS: MULTIVITAMIN with MINERAL TABLET. PO SCH (07:44)
[2017-07-05] MEDS: QUEtiapine 25 MG TABLET. PO SCH ×3 (07:44→17:07)
[2017-07-05] MEDS: FINASTERIDE 5 MG TABLET PO SCH (07:44)
[2017-07-05] MEDS: MEGESTROL 40 MG TABLET. PO SCH ×2 (07:45→12:17)
[2017-07-05] MEDS: ACETAMINOPHEN 325 MG TABLET PO SCH ×3 (07:46→19:47)
[2017-07-05] MEDS: DIVALPROEX 125 MG CAP.SPRINK PO SCH ×3 (07:47→19:46)
[2017-07-05] MEDS: FLECAINIDE 50 MG TABLET. PO SCH ×2 (07:47→19:49)
[2017-07-05 16:14] VITALS: BP 142/70
--- NOTE | 2017-07-05 19:42 | PDOC ---
Exam Evan Demential Exam: Evan Note: Please also refer to the separate dictated note~for this date of service dictated separately.~Patient seen individually. Discussed the patient with Nursing staff reviewed the chart.~Reviewed interim history and current functioning. Reviewed vital signs,~Labs/ Radiology~and current medications noted below. Continue current treatment with the changes noted in the dictated addendum note Assessment: Vital Signs: Vital Signs Date Time Temp Pulse Resp B/P (MAP) Pulse Ox O2 Delivery O2 Flow Rate FiO2 07/05/17 16:14 99.8 64 16 142/70 (94) 97 I&O Intake and Output 07/06/17 06:59 Intake Total 1300 ml Balance 1300 ml Intake Oral 1300 ml Labs: Laboratory Tests Test 07/05/17 07:04 White Blood Count 7.9 x10^3/uL (4.0-11.0) Red Blood Count 3.76 x10^6/uL (4.30-5.70) L Hemoglobin 12.1 g/dL (13.0-17.5) L Hematocrit 35.8 % (39.0-53.0) L Mean Corpuscular Volume 95 fL (79-100) Mean Corpuscular Hemoglobin 32 pg (25-35) Mean Corpuscular Hemoglobin Concent 34 g/dL (31-37) Red Cell Distribution Width 15.2 % (11.5-14.5) H Platelet Count 282 x10^3/uL (140-400) Neutrophils (%) (Auto) 75 % (31-73) H Lymphocytes (%) (Auto) 15 % (24-48) L Monocytes (%) (Auto) 8 % (0-9) Eosinophils (%) (Auto) 1 % (0-3) Basophils (%) (Auto) 1 % (0-3) Neutrophils # (Auto) 5.9 x10^3uL (1.8-7.7) Lymphocytes # (Auto) 1.2 x10^3/uL (1.0-4.8) Monocytes # (Auto) 0.7 x10^3/uL (0.0-1.1) Eosinophils # (Auto) 0.1 x10^3/uL (0.0-0.7) Basophils # (Auto) 0.0 x10^3/uL (0.0-0.2) Sodium Level 150 mmol/L (136-145) H Potassium Level 4.9 mmol/L (3.5-5.1) Chloride Level 114 mmol/L (98-107) H Carbon Dioxide Level 28 mmol/L (21-32) Anion Gap 8 (6-14) Blood Urea Nitrogen 42 mg/dL (8-26) H Creatinine 1.4 mg/dL (0.7-1.3) H Estimated GFR (Cockcroft-Gault) 48.2 BUN/Creatinine Ratio 30 (6-20) H Glucose Level 105 mg/dL (70-99) H Calcium Level 9.2 mg/dL (8.5-10.1) Total Bilirubin 0.6 mg/dL (0.2-1.0) Aspartate Amino Transferase (AST) 18 U/L (15-37) Alanine Aminotransferase (ALT) 30 U/L (16-63) Alkaline Phosphatase 86 U/L (46-116) Total Protein 6.8 g/dL (6.4-8.2) Albumin 3.2 g/dL (3.4-5.0) L Albumin/Globulin Ratio 0.9 (1.0-1.7) L Current Medications: Meds: Current Medications Multi-Ingredient Ointment (Analgesic [place]) 1 talya PRN QID PRN TP MUSCLE PAIN; Start 06/19/17 at 00:30 Al Hydroxide/Mg Hydroxide (Mylanta Plus Xs) 15 ml PRN AFTMEALHC PRN PO DYSPEPSIA; Start 06/19/17 at 00:30 Magnesium Hydroxide (Milk Of Magnesia) 2,400 mg PRN QHS PRN PO CONSTIPATION Last administered on 07/01/17 16:56; Start 06/19/17 at 00:30 Donepezil HCl (Aricept) 20 mg QHS PO Last administered on 06/30/17 19:35; Start 06/19/17 at 21:00; Stop 07/01/17 at 12:19; Status DC Lorazepam (Ativan) 0.5 mg DAILY PO Last administered on 06/26/17 07:57; Start 06/19/17 at 09:00; Stop 06/26/17 at 18:43; Status DC Lorazepam (Ativan) 0.5 mg PRN Q6HRS PRN PO ANXIETY / AGITATION Last administered on 07/01/17 08:52; Start 06/19/17 at 00:30 Megestrol Acetate (Megace) 40 mg BID PO Last administered on 06/29/17 08:06; Start 06/19/17 at 09:00; Stop 06/29/17 at 11:57; Status DC Mirtazapine (Remeron) 15 mg QHS PO Last administered on 07/04/17 19:22; Start 06/19/17 at 21:00 Quetiapine Fumarate (SEROquel) 25 mg BID92 PO Last administered on 06/20/17 14 :00; Start 06/19/17 at 09:00; Stop 06/20/17 at 18:26; Status DC Quetiapine Fumarate (SEROquel) 100 mg QHS PO Last administered on 07/04/17 19: 22; Start 06/19/17 at 21:00 Memantine (Namenda) 10 mg BID PO Last administered on 07/05/17 07:44; Start at 09:00 Acetaminophen (Tylenol) 650 mg TID PO Last administered on 07/05/17 13:59; Start 06/19/17 at 09:00 Finasteride (Proscar) 5 mg DAILY PO Last administered on 07/05/17 07:44; Start 06/19/17 at 09:00 Flecainide Acetate (Tambocor) 50 mg BID PO Last administered on 07/05/17 07:47 ; Start 06/19/17 at 09:00 Multivitamins/ Calcium (Thera-M Plus) 1 tab DAILY PO Last administered on 07:44; Start 06/19/17 at 09:00 Olanzapine (ZyPREXA ZYDIS) 2.5 mg PRN Q2HR PRN PO PSYCHOSIS Last administered on 06/25/17 12:07; Start 06/19/17 at 18:30 Quetiapine Fumarate (SEROquel) 25 mg TID@0900,1300,1700 PO Last administered on 07/01/17 08:44; Start 06/21/17 at 09:00; Stop 07/01/17 at 12:19; Status DC Divalproex Sodium (Depakote Sprinkles) 125 mg BID PO Last administered on 08:30; Start 06/24/17 at 11:30; Stop 06/27/17 at 18:35; Status DC Vitamin D (Vitamin D3) 50,000 unit WEEKLY PO Last administered on 07/03/17 08: 42; Start 06/26/17 at 09:00 Lorazepam (Ativan) 0.25 mg DAILY PO Last administered on 06/28/17 08:26; Start 06/27/17 at 09:00; Stop 06/28/17 at 23:00; Status DC Divalproex Sodium (Depakote Sprinkles) 125 mg TID PO Last administered on 12:36; Start 06/27/17 at 21:00; Stop 06/29/17 at 18:55; Status DC Megestrol Acetate (Megace) 40 mg BIDACBL PO Last administered on 07/05/17 12: 17; Start 06/30/17 at 07:30 Divalproex Sodium (Depakote Sprinkles) 125 mg DAILY PO Last administered on 09:27; Start 06/30/17 at 09:00; Stop 07/02/17 at 18:35; Status DC Divalproex Sodium (Depakote Sprinkles) 250 mg DAILY16 PO Last administered on 17:00; Start 06/30/17 at 16:00; Stop 07/02/17 at 18:35; Status DC Magnesium Citrate (Citroma) 296 ml 1X ONCE PO Last administered on 07/01/17 11:51; Start 07/01/17 at 10:00; Stop 07/01/17 at 10:01; Status DC Quetiapine Fumarate (SEROquel) 37.5 mg TID@0900,1300,1700 PO Last administered on 07/05/17 17:07; Start 07/01/17 at 13:00 Divalproex Sodium (Depakote Sprinkles) 250 mg DAILY PO Last administered on 08:42; Start 07/03/17 at 09:00; Stop 07/03/17 at 18:31; Status DC Divalproex Sodium (Depakote Sprinkles) 125 mg DAILY16 PO Last administered on 16:38; Start 07/03/17 at 16:00; Stop 07/03/17 at 18:31; Status DC Divalproex Sodium (Depakote Sprinkles) 250 mg HS PO Last administered on 19:31; Start 07/02/17 at 21:00; Stop 07/03/17 at 18:31; Status DC Divalproex Sodium (Depakote Sprinkles) 250 mg TID PO Last administered on 13:59; Start 07/03/17 at 21:00 Active Scripts Active Reported Seroquel (Quetiapine Fumarate) 100 Mg Tablet 100 Mg PO QHS Seroquel (Quetiapine Fumarate) 25 Mg Tablet 25 Mg PO BID92 Thera M Plus Tablet (Multivits,Ca,Minerals/Iron/FA) 1 Each Tablet 1 Tab PO DAILY Remeron (Mirtazapine) 15 Mg Tablet 15 Mg PO QHS Namenda Xr (Memantine Hcl) 28 Mg Cap.spr.24 28 Mg PO DAILY Flecainide Acetate 50 Mg Tablet 50 Mg PO BID Proscar (Finasteride) 5 Mg Tablet 5 Mg PO DAILY Aricept (Donepezil Hcl) 10 Mg Tablet 20 Mg PO QHS Ativan (Lorazepam) 0.5 Mg Tablet 0.5 Mg PO DAILY Ativan (Lorazepam) 0.5 Mg Tablet 0.5 Mg PO PRN Q6HRS PRN Megestrol Acetate 40 Mg Tablet 40 Mg PO BID Tylenol (Acetaminophen) 325 Mg Tablet 650 Mg PO TID Diagnosis: Problems: (1) Dementia (2) Disruptive behavior (3) Anxiety disorder (4) Dementia, vascular, with delusions (5) Dementia, vascular, with 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
[2017-07-05] MEDS: MIRTAZAPINE 15 MG TABLET PO SCH (19:46)
[2017-07-05] MEDS: QUEtiapine 100 MG TABLET. PO SCH (19:46)
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
[2017-07-06 07:20] VITALS: BP 165/78
[2017-07-06 08:15] LABS: BASO # 0.1 x10^3/uL (0.0-0.2); BASO % 1 % (0-3); EOS # 0.1 x10^3/uL (0.0-0.7); EOS % 1 % (0-3); HEMATOCRIT 35.8 % (39.0-53.0); HEMOGLOBIN 12.1 g/dL (13.0-17.5); LYMPH # 1.3 x10^3/uL (1.0-4.8); LYMPH % 15 % (24-48); MEAN CORPUSCULAR HEMOGLOBIN 32 pg (25-35); MEAN CORPUSCULAR HGB CONC 34 g/dL (31-37); MEAN CORPUSCULAR VOLUME 95 fL (79-100); MONO # 0.7 x10^3/uL (0.0-1.1); MONO % 8 % (0-9); NEUT # 6.2 x10^3uL (1.8-7.7); NEUT % 75 % (31-73); PLATELET COUNT 302 x10^3/uL (140-400); RED BLOOD COUNT 3.78 x10^6/uL (4.30-5.70); RED CELL DISTRIBUTION WIDTH 14.6 % (11.5-14.5); WHITE BLOOD COUNT 8.2 x10^3/uL (4.0-11.0)
[2017-07-06] MEDS: MEMANTINE 10 MG TABLET. PO SCH ×2 (08:50→20:09)
[2017-07-06] MEDS: MULTIVITAMIN with MINERAL TABLET. PO SCH (08:50)
[2017-07-06] MEDS: ACETAMINOPHEN 325 MG TABLET PO SCH ×3 (08:50→20:11)
[2017-07-06] MEDS: DIVALPROEX 125 MG CAP.SPRINK PO SCH ×4 (08:50→21:34)
[2017-07-06] MEDS: MEGESTROL 40 MG TABLET. PO SCH ×2 (08:50→12:19)
[2017-07-06] MEDS: FLECAINIDE 50 MG TABLET. PO SCH ×2 (08:51→20:10)
[2017-07-06] MEDS: FINASTERIDE 5 MG TABLET PO SCH (08:51)
[2017-07-06] MEDS: QUEtiapine 25 MG TABLET. PO SCH ×3 (08:52→17:06)
[2017-07-06 09:40] LABS: ALBUMIN 3.1 g/dL (3.4-5.0); ALBUMIN/GLOBULIN RATIO 0.9 (1.0-1.7); CALCIUM 8.9 mg/dL (8.5-10.1); CREATININE 1.4 mg/dL (0.7-1.3); GFR 48.2; POTASSIUM 4.4 mmol/L (3.5-5.1); TOTAL BILIRUBIN 0.4 mg/dL (0.2-1.0); TOTAL PROTEIN 6.6 g/dL (6.4-8.2); VAL ACID 41 mcg/mL (50-100)
[2017-07-06 16:29] VITALS: BP 100/57
[2017-07-06] MEDS: QUEtiapine 100 MG TABLET. PO SCH (20:09)
[2017-07-06] MEDS: MIRTAZAPINE 15 MG TABLET PO SCH (20:09)
--- NOTE | 2017-07-06 20:16 | PDOC ---
Exam Evan Demential Exam: Evan Note: Please also refer to the separate dictated note~for this date of service dictated separately.~Patient seen individually. Discussed the patient with Nursing staff reviewed the chart.~Reviewed interim history and current functioning. Reviewed vital signs,~Labs/ Radiology~and current medications noted below. Continue current treatment with the changes noted in the dictated addendum note Assessment: Vital Signs: Vital Signs Date Time Temp Pulse Resp B/P (MAP) Pulse Ox O2 Delivery O2 Flow Rate FiO2 07/06/17 20:10 80 100/57 07/06/17 16:29 97.6 20 96 Room Air I&O Intake and Output 07/07/17 07:00 Intake Total 1080 ml Balance 1080 ml Intake Oral 1080 ml Labs: Laboratory Tests Test 07/06/17 07:45 White Blood Count 8.2 x10^3/uL (4.0-11.0) Red Blood Count 3.78 x10^6/uL (4.30-5.70) L Hemoglobin 12.1 g/dL (13.0-17.5) L Hematocrit 35.8 % (39.0-53.0) L Mean Corpuscular Volume 95 fL (79-100) Mean Corpuscular Hemoglobin 32 pg (25-35) Mean Corpuscular Hemoglobin Concent 34 g/dL (31-37) Red Cell Distribution Width 14.6 % (11.5-14.5) H Platelet Count 302 x10^3/uL (140-400) Neutrophils (%) (Auto) 75 % (31-73) H Lymphocytes (%) (Auto) 15 % (24-48) L Monocytes (%) (Auto) 8 % (0-9) Eosinophils (%) (Auto) 1 % (0-3) Basophils (%) (Auto) 1 % (0-3) Neutrophils # (Auto) 6.2 x10^3uL (1.8-7.7) Lymphocytes # (Auto) 1.3 x10^3/uL (1.0-4.8) Monocytes # (Auto) 0.7 x10^3/uL (0.0-1.1) Eosinophils # (Auto) 0.1 x10^3/uL (0.0-0.7) Basophils # (Auto) 0.1 x10^3/uL (0.0-0.2) Sodium Level 147 mmol/L (136-145) H Potassium Level 4.4 mmol/L (3.5-5.1) Chloride Level 113 mmol/L (98-107) H Carbon Dioxide Level 28 mmol/L (21-32) Anion Gap 6 (6-14) Blood Urea Nitrogen 42 mg/dL (8-26) H Creatinine 1.4 mg/dL (0.7-1.3) H Estimated GFR (Cockcroft-Gault) 48.2 BUN/Creatinine Ratio 30 (6-20) H Glucose Level 99 mg/dL (70-99) Calcium Level 8.9 mg/dL (8.5-10.1) Total Bilirubin 0.4 mg/dL (0.2-1.0) Aspartate Amino Transferase (AST) 19 U/L (15-37) Alanine Aminotransferase (ALT) 31 U/L (16-63) Alkaline Phosphatase 88 U/L (46-116) Total Protein 6.6 g/dL (6.4-8.2) Albumin 3.1 g/dL (3.4-5.0) L Albumin/Globulin Ratio 0.9 (1.0-1.7) L Valproic Acid Level 41 mcg/mL (50-100) L Valproic Acid Last Dose Date 07/05/2017 Valproic Acid Last Dose Time 2100 Current Medications: Meds: Current Medications Multi-Ingredient Ointment (Analgesic [place]) 1 talya PRN QID PRN TP MUSCLE PAIN; Start 06/19/17 at 00:30 Al Hydroxide/Mg Hydroxide (Mylanta Plus Xs) 15 ml PRN AFTMEALHC PRN PO DYSPEPSIA; Start 06/19/17 at 00:30 Magnesium Hydroxide (Milk Of Magnesia) 2,400 mg PRN QHS PRN PO CONSTIPATION Last administered on 07/01/17 16:56; Start 06/19/17 at 00:30 Donepezil HCl (Aricept) 20 mg QHS PO Last administered on 06/30/17 19:35; Start 06/19/17 at 21:00; Stop 07/01/17 at 12:19; Status DC Lorazepam (Ativan) 0.5 mg DAILY PO Last administered on 06/26/17 07:57; Start 06/19/17 at 09:00; Stop 06/26/17 at 18:43; Status DC Lorazepam (Ativan) 0.5 mg PRN Q6HRS PRN PO ANXIETY / AGITATION Last administered on 07/01/17 08:52; Start 06/19/17 at 00:30 Megestrol Acetate (Megace) 40 mg BID PO Last administered on 06/29/17 08:06; Start 06/19/17 at 09:00; Stop 06/29/17 at 11:57; Status DC Mirtazapine (Remeron) 15 mg QHS PO Last administered on 07/06/17 20:09; Start 06/19/17 at 21:00 Quetiapine Fumarate (SEROquel) 25 mg BID92 PO Last administered on 06/20/17 14 :00; Start 06/19/17 at 09:00; Stop 06/20/17 at 18:26; Status DC Quetiapine Fumarate (SEROquel) 100 mg QHS PO Last administered on 07/06/17 20: 09; Start 06/19/17 at 21:00 Memantine (Namenda) 10 mg BID PO Last administered on 07/06/17 20:09; Start at 09:00 Acetaminophen (Tylenol) 650 mg TID PO Last administered on 07/06/17 20:11; Start 06/19/17 at 09:00 Finasteride (Proscar) 5 mg DAILY PO Last administered on 07/06/17 08:51; Start 06/19/17 at 09:00 Flecainide Acetate (Tambocor) 50 mg BID PO Last administered on 07/06/17 20:10 ; Start 06/19/17 at 09:00 Multivitamins/ Calcium (Thera-M Plus) 1 tab DAILY PO Last administered on 08:50; Start 06/19/17 at 09:00 Olanzapine (ZyPREXA ZYDIS) 2.5 mg PRN Q2HR PRN PO PSYCHOSIS Last administered on 06/25/17 12:07; Start 06/19/17 at 18:30 Quetiapine Fumarate (SEROquel) 25 mg TID@0900,1300,1700 PO Last administered on 07/01/17 08:44; Start 06/21/17 at 09:00; Stop 07/01/17 at 12:19; Status DC Divalproex Sodium (Depakote Sprinkles) 125 mg BID PO Last administered on 08:30; Start 06/24/17 at 11:30; Stop 06/27/17 at 18:35; Status DC Vitamin D (Vitamin D3) 50,000 unit WEEKLY PO Last administered on 07/03/17 08: 42; Start 06/26/17 at 09:00 Lorazepam (Ativan) 0.25 mg DAILY PO Last administered on 06/28/17 08:26; Start 06/27/17 at 09:00; Stop 06/28/17 at 23:00; Status DC Divalproex Sodium (Depakote Sprinkles) 125 mg TID PO Last administered on 12:36; Start 06/27/17 at 21:00; Stop 06/29/17 at 18:55; Status DC Megestrol Acetate (Megace) 40 mg BIDACBL PO Last administered on 07/06/17 12: 19; Start 06/30/17 at 07:30 Divalproex Sodium (Depakote Sprinkles) 125 mg DAILY PO Last administered on 09:27; Start 06/30/17 at 09:00; Stop 07/02/17 at 18:35; Status DC Divalproex Sodium (Depakote Sprinkles) 250 mg DAILY16 PO Last administered on 17:00; Start 06/30/17 at 16:00; Stop 07/02/17 at 18:35; Status DC Magnesium Citrate (Citroma) 296 ml 1X ONCE PO Last administered on 07/01/17 11:51; Start 07/01/17 at 10:00; Stop 07/01/17 at 10:01; Status DC Quetiapine Fumarate (SEROquel) 37.5 mg TID@0900,1300,1700 PO Last administered on 07/06/17 17:06; Start 07/01/17 at 13:00 Divalproex Sodium (Depakote Sprinkles) 250 mg DAILY PO Last administered on 08:42; Start 07/03/17 at 09:00; Stop 07/03/17 at 18:31; Status DC Divalproex Sodium (Depakote Sprinkles) 125 mg DAILY16 PO Last administered on 16:38; Start 07/03/17 at 16:00; Stop 07/03/17 at 18:31; Status DC Divalproex Sodium (Depakote Sprinkles) 250 mg HS PO Last administered on 19:31; Start 07/02/17 at 21:00; Stop 07/03/17 at 18:31; Status DC Divalproex Sodium (Depakote Sprinkles) 250 mg TID PO Last administered on 20:09; Start 07/03/17 at 21:00 Active Scripts Active Reported Seroquel (Quetiapine Fumarate) 100 Mg Tablet 100 Mg PO QHS Seroquel (Quetiapine Fumarate) 25 Mg Tablet 25 Mg PO BID92 Thera M Plus Tablet (Multivits,Ca,Minerals/Iron/FA) 1 Each Tablet 1 Tab PO DAILY Remeron (Mirtazapine) 15 Mg Tablet 15 Mg PO QHS Namenda Xr (Memantine Hcl) 28 Mg Cap.spr.24 28 Mg PO DAILY Flecainide Acetate 50 Mg Tablet 50 Mg PO BID Proscar (Finasteride) 5 Mg Tablet 5 Mg PO DAILY Aricept (Donepezil Hcl) 10 Mg Tablet 20 Mg PO QHS Ativan (Lorazepam) 0.5 Mg Tablet 0.5 Mg PO DAILY Ativan (Lorazepam) 0.5 Mg Tablet 0.5 Mg PO PRN Q6HRS PRN Megestrol Acetate 40 Mg Tablet 40 Mg PO BID Tylenol (Acetaminophen) 325 Mg Tablet 650 Mg PO TID Diagnosis: Problems: (1) Dementia (2) Disruptive behavior (3) Anxiety disorder (4) Dementia, vascular, with delusions (5) Dementia, vascular, 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
--- NOTE | 2017-07-07 02:34 | PN ---
DATE: 07/05/2017 This late entry 07/05/2017 covers elements not covered in my initial note on 07/05/2017. I met with the patient the evening of 07/05/2017. Appetite is 50%, sleeps 7-8 hours. He is staffed at a treatment team meeting with the entire team morning of 07/05/2017, seen individually evening of 07/05/2017. He has been sedated at times, complains of feeling cold, not compliant with assessments, repeatedly stating "hold it, hold it, hold it, hold it," as he gets agitated during cares. He sat in the hallway after lunch, but redirected. REVIEW OF SYSTEMS: Ambulation impaired. No CV, , pulmonary, eye, ENT system symptoms on review. MENTAL STATUS EXAM: Oriented to himself. Insight, judgment, recent and remote memory, attention, concentration, fund of knowledge poor, consistent with his diagnosis mentioned in my initial note. LABORATORY DATA: Reviewed. IMPRESSION: Unchanged from initial note. PLAN: Continue current psychotropics mentioned in my initial note. Adjust further as clinically indicated. Review drug interactions, risk/benefit ratio favors no further. MAN Madelin SHABAZZ MD DR: RAYMUNDO/alex JOB#: [id number] / [id number]
[2017-07-07] MEDS: ACETAMINOPHEN 325 MG TABLET PO SCH ×3 (07:31→19:40)
[2017-07-07] MEDS: FINASTERIDE 5 MG TABLET PO SCH (07:31)
[2017-07-07] MEDS: FLECAINIDE 50 MG TABLET. PO SCH ×2 (07:31→19:43)
[2017-07-07] MEDS: MEGESTROL 40 MG TABLET. PO SCH ×3 (07:31→19:41)
[2017-07-07] MEDS: MEMANTINE 10 MG TABLET. PO SCH ×2 (07:32→19:42)
[2017-07-07] MEDS: MULTIVITAMIN with MINERAL TABLET. PO SCH (07:32)
[2017-07-07] MEDS: QUEtiapine 25 MG TABLET. PO SCH ×3 (07:32→17:18)
[2017-07-07] MEDS: DIVALPROEX 125 MG CAP.SPRINK PO SCH ×3 (07:33→19:41)
[2017-07-07] MEDS: MAGNESIUM HYDROXIDE 2,400 MG/30 ML ORAL.SUSP. PO PRN (07:45)
[2017-07-07 15:39] VITALS: BP 146/76
[2017-07-07] MEDS: LORazepam 0.5 MG TABLET PO PRN (17:18)
[2017-07-07] MEDS: QUEtiapine 100 MG TABLET. PO SCH (19:41)
[2017-07-07] MEDS: MIRTAZAPINE 15 MG TABLET PO SCH (19:41)
[2017-07-07] MEDS: CEPHALEXIN 250 MG CAPSULE PO SCH (19:43)
[2017-07-07] MEDS: DOCUSATE SODIUM 100 MG CAPSULE PO SCH (19:43)
--- NOTE | 2017-07-07 22:38 | PDOC ---
Exam Evan Demential Exam: Evan Note: Please also refer to the separate dictated note~for this date of service dictated separately.~Patient seen individually. Discussed the patient with Nursing staff reviewed the chart.~Reviewed interim history and current functioning. Reviewed vital signs,~Labs/ Radiology~and current medications noted below. Continue current treatment with the changes noted in the dictated addendum note Assessment: Vital Signs: Vital Signs Date Time Temp Pulse Resp B/P (MAP) Pulse Ox O2 Delivery O2 Flow Rate FiO2 07/07/17 19:43 70 146/76 07/07/17 15:39 97.7 18 95 07/06/17 16:29 Room Air I&O Intake and Output 07/08/17 07:00 Intake Total 1800 ml Balance 1800 ml Intake Oral 1800 ml Current Medications: Meds: Current Medications Multi-Ingredient Ointment (Analgesic [place]) 1 talya PRN QID PRN TP MUSCLE PAIN; Start 06/19/17 at 00:30 Al Hydroxide/Mg Hydroxide (Mylanta Plus Xs) 15 ml PRN AFTMEALHC PRN PO DYSPEPSIA; Start 06/19/17 at 00:30 Magnesium Hydroxide (Milk Of Magnesia) 2,400 mg PRN QHS PRN PO CONSTIPATION Last administered on 07/07/17 07:45; Start 06/19/17 at 00:30 Donepezil HCl (Aricept) 20 mg QHS PO Last administered on 06/30/17 19:35; Start 06/19/17 at 21:00; Stop 07/01/17 at 12:19; Status DC Lorazepam (Ativan) 0.5 mg DAILY PO Last administered on 06/26/17 07:57; Start 06/19/17 at 09:00; Stop 06/26/17 at 18:43; Status DC Lorazepam (Ativan) 0.5 mg PRN Q6HRS PRN PO ANXIETY / AGITATION Last administered on 07/07/17 17:18; Start 06/19/17 at 00:30 Megestrol Acetate (Megace) 40 mg BID PO Last administered on 06/29/17 08:06; Start 06/19/17 at 09:00; Stop 06/29/17 at 11:57; Status DC Mirtazapine (Remeron) 15 mg QHS PO Last administered on 07/07/17 19:41; Start 06/19/17 at 21:00 Quetiapine Fumarate (SEROquel) 25 mg BID92 PO Last administered on 06/20/17 14 :00; Start 06/19/17 at 09:00; Stop 06/20/17 at 18:26; Status DC Quetiapine Fumarate (SEROquel) 100 mg QHS PO Last administered on 07/07/17 19: 41; Start 06/19/17 at 21:00 Memantine (Namenda) 10 mg BID PO Last administered on 07/07/17 19:42; Start at 09:00 Acetaminophen (Tylenol) 650 mg TID PO Last administered on 07/07/17 19:40; Start 06/19/17 at 09:00 Finasteride (Proscar) 5 mg DAILY PO Last administered on 07/07/17 07:31; Start 06/19/17 at 09:00 Flecainide Acetate (Tambocor) 50 mg BID PO Last administered on 07/07/17 19:43 ; Start 06/19/17 at 09:00 Multivitamins/ Calcium (Thera-M Plus) 1 tab DAILY PO Last administered on 07:32; Start 06/19/17 at 09:00 Olanzapine (ZyPREXA ZYDIS) 2.5 mg PRN Q2HR PRN PO PSYCHOSIS Last administered on 06/25/17 12:07; Start 06/19/17 at 18:30 Quetiapine Fumarate (SEROquel) 25 mg TID@0900,1300,1700 PO Last administered on 07/01/17 08:44; Start 06/21/17 at 09:00; Stop 07/01/17 at 12:19; Status DC Divalproex Sodium (Depakote Sprinkles) 125 mg BID PO Last administered on 08:30; Start 06/24/17 at 11:30; Stop 06/27/17 at 18:35; Status DC Vitamin D (Vitamin D3) 50,000 unit WEEKLY PO Last administered on 07/03/17 08: 42; Start 06/26/17 at 09:00 Lorazepam (Ativan) 0.25 mg DAILY PO Last administered on 06/28/17 08:26; Start 06/27/17 at 09:00; Stop 06/28/17 at 23:00; Status DC Divalproex Sodium (Depakote Sprinkles) 125 mg TID PO Last administered on 12:36; Start 06/27/17 at 21:00; Stop 06/29/17 at 18:55; Status DC Megestrol Acetate (Megace) 40 mg BIDACBL PO Last administered on 07/07/17 19: 41; Start 06/30/17 at 07:30 Divalproex Sodium (Depakote Sprinkles) 125 mg DAILY PO Last administered on 09:27; Start 06/30/17 at 09:00; Stop 07/02/17 at 18:35; Status DC Divalproex Sodium (Depakote Sprinkles) 250 mg DAILY16 PO Last administered on 17:00; Start 06/30/17 at 16:00; Stop 07/02/17 at 18:35; Status DC Magnesium Citrate (Citroma) 296 ml 1X ONCE PO Last administered on 07/01/17 11:51; Start 07/01/17 at 10:00; Stop 07/01/17 at 10:01; Status DC Quetiapine Fumarate (SEROquel) 37.5 mg TID@0900,1300,1700 PO Last administered on 07/07/17 17:18; Start 07/01/17 at 13:00 Divalproex Sodium (Depakote Sprinkles) 250 mg DAILY PO Last administered on 08:42; Start 07/03/17 at 09:00; Stop 07/03/17 at 18:31; Status DC Divalproex Sodium (Depakote Sprinkles) 125 mg DAILY16 PO Last administered on 16:38; Start 07/03/17 at 16:00; Stop 07/03/17 at 18:31; Status DC Divalproex Sodium (Depakote Sprinkles) 250 mg HS PO Last administered on 19:31; Start 07/02/17 at 21:00; Stop 07/03/17 at 18:31; Status DC Divalproex Sodium (Depakote Sprinkles) 250 mg TID PO Last administered on 20:09; Start 07/03/17 at 21:00; Stop 07/06/17 at 20:23; Status DC Divalproex Sodium (Depakote Sprinkles) 375 mg TID PO Last administered on 19:41; Start 07/06/17 at 21:00 Docusate Sodium (Colace) 100 mg BID PO Last administered on 07/07/17 19:43; Start 07/07/17 at 21:00 Polyethylene Glycol (miraLAX) 17 gm DAILY PO ; Start 07/08/17 at 09:00 Cephalexin HCl (Keflex) 500 mg TID PO Last administered on 07/07/17 19:43; Start 07/07/17 at 21:00 Active Scripts Active Reported Seroquel (Quetiapine Fumarate) 100 Mg Tablet 100 Mg PO QHS Seroquel (Quetiapine Fumarate) 25 Mg Tablet 25 Mg PO BID92 Thera M Plus Tablet (Multivits,Ca,Minerals/Iron/FA) 1 Each Tablet 1 Tab PO DAILY Remeron (Mirtazapine) 15 Mg Tablet 15 Mg PO QHS Namenda Xr (Memantine Hcl) 28 Mg Cap.spr.24 28 Mg PO DAILY Flecainide Acetate 50 Mg Tablet 50 Mg PO BID Proscar (Finasteride) 5 Mg Tablet 5 Mg PO DAILY Aricept (Donepezil Hcl) 10 Mg Tablet 20 Mg PO QHS Ativan (Lorazepam) 0.5 Mg Tablet 0.5 Mg PO DAILY Ativan (Lorazepam) 0.5 Mg Tablet 0.5 Mg PO PRN Q6HRS PRN Megestrol Acetate 40 Mg Tablet 40 Mg PO BID Tylenol (Acetaminophen) 325 Mg Tablet 650 Mg PO TID Diagnosis: Problems: (1) Impulse control disorder (2) Dementia in Alzheimer's disease with depression (3) 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
--- NOTE | 2017-07-08 00:52 | PN ---
DATE: 07/06/2017 This late entry 07/06/2017 covers elements not covered in my initial note of 07/06/2017. I met with the patient evening of 07/06/2017. The patient continues to be quite combative, unless he is moving and then he does better. He does not seem to recognize anything around him. He gets agitated with cares, impulsive, hence to be held by staff at times due to his agitation. REVIEW OF SYSTEMS: No CV, , pulmonary, eye, ENT system symptoms on review. MENTAL STATUS EXAMINATION: Oriented to himself. Insight, judgment, recent and remote memory, attention, concentration, fund of knowledge poor, consistent with his diagnosis mentioned in my initial note. Valproic acid level is 41. PLAN: Increase Depakote from 250 t.i.d. to 375 mg t.i.d., check CBC, CMP, valproic acid level in 3 days. Maintain the rest of the psychotropics, reviewed drug interactions, risk/benefit ratio favors no further change at this time. TONE SHABAZZ MD DR: RAYMUNDO/alex JOB#: [id number] / [id number]
[2017-07-08 05:40] VITALS: BP 112/63
[2017-07-08] MEDS: QUEtiapine 25 MG TABLET. PO SCH ×2 (08:25→12:03)
--- NOTE | 2017-07-08 08:52 | EKG ---
[address] [address] Test Date: 2017-07-08 Test Time: 08:49:06 Pat Name: ASHLEY RIVERA Department: Room: [address] [place] [address] Gender: M Family Preservation Officer: ELIJAH : 1930 Requested By: LILI VALLE Order Number: [id number] Reading MD: Darwin Rios Measurements Intervals [place] Rate: 130 P: MD: QRS: -75 QRSD: 114 T: 43 QT: 308 QTc: 460 Interpretive Statements SUSPECT SVT RBBB LATERAL ISCHEMIA Electronically Signed On 07-09-2017 13:17:42 CDT by Darwin Rios
[2017-07-08 09:00] VITALS: BP 112/63
[2017-07-08] MEDS: ACETAMINOPHEN 325 MG TABLET PO SCH ×2 (09:00→14:00)
[2017-07-08] MEDS: FLECAINIDE 50 MG TABLET. PO SCH (09:00)
[2017-07-08] MEDS ORDERED: POLYETHYLENE GLYCOL 3350 17 GM PACKET. PO SCH (09:00)
[2017-07-08 09:02] LABS: BASO # 0.1 x10^3/uL (0.0-0.2); BASO % 1 % (0-3); EOS % 0 % (0-3); HEMATOCRIT 39.7 % (39.0-53.0); HEMOGLOBIN 13.3 g/dL (13.0-17.5); LYMPH # 1.6 x10^3/uL (1.0-4.8); LYMPH % 9 % (24-48); MEAN CORPUSCULAR HEMOGLOBIN 32 pg (25-35); MEAN CORPUSCULAR HGB CONC 34 g/dL (31-37); MEAN CORPUSCULAR VOLUME 96 fL (79-100); MONO % 6 % (0-9); NEUT # 14.8 x10^3uL (1.8-7.7); NEUT % 85 % (31-73); PLATELET COUNT 394 x10^3/uL (140-400); RED BLOOD COUNT 4.16 x10^6/uL (4.30-5.70); RED CELL DISTRIBUTION WIDTH 15.1 % (11.5-14.5); WHITE BLOOD COUNT 17.6 x10^3/uL (4.0-11.0)
[2017-07-08 09:15] LABS: ALBUMIN 3.6 g/dL (3.4-5.0); CALCIUM 9.6 mg/dL (8.5-10.1); CREATININE 1.8 mg/dL (0.7-1.3); POTASSIUM 5.1 mmol/L (3.5-5.1); TOTAL BILIRUBIN 0.7 mg/dL (0.2-1.0); TOTAL PROTEIN 7.3 g/dL (6.4-8.2)
[2017-07-08 10:24] LABS: % BANDS 7 % (0-9); % LYMPHS 18 % (24-48); % MONOS 5 % (0-10); % SEGS 70 % (35-66); PLT ESTIMATE ADEQUATE (ADEQUATE)
[2017-07-08 10:29] LABS: BACTERIA,URINE 0 /HPF (0-FEW); BILIRUBIN,URINE NEG (NEG); CLARITY,URINE CLEAR; COLOR,URINE YELLOW; GLUCOSE,URINE NEG (NEG); NITRITE,URINE NEG (NEG); SQUAMOUS EPITHELIAL CELL,UR OCC /LPF; UROBILINOGEN,URINE 0.2 mg/dL (0.2 mg/dL)
[2017-07-08] MEDS: MEMANTINE 10 MG TABLET. PO SCH (10:37)
[2017-07-08] MEDS: CEPHALEXIN 250 MG CAPSULE PO SCH ×2 (10:37→14:00)
[2017-07-08] MEDS: MEGESTROL 40 MG TABLET. PO SCH (10:37)
[2017-07-08] MEDS: DOCUSATE SODIUM 100 MG CAPSULE PO SCH (10:37)
[2017-07-08] MEDS: MULTIVITAMIN with MINERAL TABLET. PO SCH (10:38)
[2017-07-08] MEDS: FINASTERIDE 5 MG TABLET PO SCH (10:38)
[2017-07-08] MEDS: DIVALPROEX 125 MG CAP.SPRINK PO SCH ×2 (10:39→14:00)
--- NOTE | 2017-07-08 10:43 | RAD ---
Chest radiograph 07/08/2017 11:24 AM Indication: Elevated white count Comparison: None available Technique: Single portable upright frontal view of the chest is provided. Findings: A left chest wall cardiac device is identified with leads projecting over the right atrium and right ventricle. Cardiomediastinal silhouette is within normal limits. No pleural effusions, pulmonary vascular congestion or pneumothorax. There is increased left retrocardiac density which may represent atelectasis or infiltrate in the appropriate clinical setting. Osseous structures are normal. Impression: Increased left retrocardiac density may reflect atelectasis versus infiltrate in the appropriate clinical setting. Follow-up two-view chest radiograph is recommended in 3-4 weeks.
--- NOTE | 2017-07-08 10:46 | RAD ---
Abdominal radiograph 07/08/2017 at 1002 hours Indication: Leukocytosis, abdominal pain Comparison: None available Technique: Single portable frontal view of the abdomen is provided. Findings: Supine technique limits evaluation for free peritoneal air. There are no dilated loops of small or large bowel. There is a 10 mm irregular calcific density in the region of the left renal hilum which could represent a renal calculus. There is atherosclerotic calcification of the abdominal aorta. Mild osteoarthrosis of the right hip. Impression: Nonobstructive bowel gas pattern. There is a 10 mm irregular calcific density in the region of the left renal hilum which could represent a renal calculus.
[2017-07-08] MEDS ORDERED: CEPH-264 PO (11:04)
[2017-07-08] MEDS ORDERED: CHOL500021 PO (11:07)
[2017-07-08] MEDS ORDERED: DOCU-109 PO (11:10)
[2017-07-08] MEDS ORDERED: POLY17PO5 PO (11:11)
[2017-07-08] MEDS ORDERED: DIVA125C PO (11:23)
[2017-07-08] MEDS ORDERED: OLAN5TAB5 PO (11:24)
--- NOTE | 2017-07-08 18:44 | PDOC ---
Exam Evan Demential Exam: Evan Note: Please also refer to the separate dictated note~for this date of service dictated separately.~Patient seen individually. Discussed the patient with Nursing staff reviewed the chart.~Reviewed interim history and current functioning. Reviewed vital signs,~Labs/ Radiology~and current medications noted below. Continue current treatment with the changes noted in the dictated addendum note Assessment: Vital Signs: Vital Signs Date Time Temp Pulse Resp B/P (MAP) Pulse Ox O2 Delivery O2 Flow Rate FiO2 07/08/17 09:00 87 112/63 07/08/17 05:40 20 07/07/17 15:39 97.7 95 07/06/17 16:29 Room Air I&O Intake and Output 07/09/17 07:00 Intake Total 240 ml Balance 240 ml Intake Oral 240 ml Labs: Laboratory Tests Test 07/08/17 08:31 07/08/17 08:54 07/08/17 09:42 07/08/17 09:50 Glucose (Fingerstick) 173 mg/dL (70-99) H White Blood Count 17.6 x10^3/uL (4.0-11.0) #H Red Blood Count 4.16 x10^6/uL (4.30-5.70) L Hemoglobin 13.3 g/dL (13.0-17.5) Hematocrit 39.7 % (39.0-53.0) Mean Corpuscular Volume 96 fL (79-100) Mean Corpuscular Hemoglobin 32 pg (25-35) Mean Corpuscular Hemoglobin Concent 34 g/dL (31-37) Red Cell Distribution Width 15.1 % (11.5-14.5) H Platelet Count 394 x10^3/uL (140-400) Neutrophils (%) (Auto) 85 % (31-73) H Lymphocytes (%) (Auto) 9 % (24-48) L Monocytes (%) (Auto) 6 % (0-9) Eosinophils (%) (Auto) 0 % (0-3) Basophils (%) (Auto) 1 % (0-3) Neutrophils # (Auto) 14.8 x10^3uL (1.8-7.7) H Lymphocytes # (Auto) 1.6 x10^3/uL (1.0-4.8) Monocytes # (Auto) 1.0 x10^3/uL (0.0-1.1) Eosinophils # (Auto) 0.0 x10^3/uL (0.0-0.7) Basophils # (Auto) 0.1 x10^3/uL (0.0-0.2) Segmented Neutrophils % 70 % (35-66) H Band Neutrophils % 7 % (0-9) Lymphocytes % 18 % (24-48) L Monocytes % 5 % (0-10) Platelet Estimate Adequate (ADEQUATE) Sodium Level 142 mmol/L (136-145) Potassium Level 5.1 mmol/L (3.5-5.1) Chloride Level 105 mmol/L (98-107) Carbon Dioxide Level 25 mmol/L (21-32) Anion Gap 12 (6-14) Blood Urea Nitrogen 42 mg/dL (8-26) H Creatinine 1.8 mg/dL (0.7-1.3) H Estimated GFR (Cockcroft-Gault) 36.0 BUN/Creatinine Ratio 23 (6-20) H Glucose Level 205 mg/dL (70-99) H Calcium Level 9.6 mg/dL (8.5-10.1) Total Bilirubin 0.7 mg/dL (0.2-1.0) Aspartate Amino Transferase (AST) 17 U/L (15-37) Alanine Aminotransferase (ALT) 28 U/L (16-63) Alkaline Phosphatase 105 U/L (46-116) Total Protein 7.3 g/dL (6.4-8.2) Albumin 3.6 g/dL (3.4-5.0) Albumin/Globulin Ratio 1.0 (1.0-1.7) Lactic Acid Level 3.3 mmol/L (0.4-2.0) H Urine Collection Type Unknown Urine Color Yellow Urine Clarity Clear Urine pH 7.0 Urine Specific [place] 1.020 Urine Protein 100 mg/dl (NEG-TRACE) Urine Glucose (UA) Neg mg/dL (NEG) Urine Ketones (Stick) 15 mg/dL (NEG) Urine Blood Small (NEG) Urine Nitrite Neg (NEG) Urine Bilirubin Neg (NEG) Urine Urobilinogen Dipstick 0.2 mg/dL (0.2 mg/dL) Urine Leukocyte Esterase Neg (NEG) Urine RBC 3-5 /HPF (0-2) Urine WBC 1-4 /HPF (0-4) Urine Squamous Epithelial Cells Occ /LPF Urine Transitional Epithelial Cells Few /LPF Urine Bacteria 0 /HPF (0-FEW) Urine Mucus Slight /LPF Test 07/08/17 11:35 07/08/17 11:52 Lactic Acid Level 2.9 mmol/L (0.4-2.0) H Glucose (Fingerstick) 163 mg/dL (70-99) H Current Medications: Meds: Current Medications Multi-Ingredient Ointment (Analgesic [place]) 1 talya PRN QID PRN TP MUSCLE PAIN; Start 06/19/17 at 00:30; Stop 07/08/17 at 16:16; Status DC Al Hydroxide/Mg Hydroxide (Mylanta Plus Xs) 15 ml PRN AFTMEALHC PRN PO DYSPEPSIA; Start 06/19/17 at 00:30; Stop 07/08/17 at 16:16; Status DC Magnesium Hydroxide (Milk Of Magnesia) 2,400 mg PRN QHS PRN PO CONSTIPATION Last administered on 07/07/17 07:45; Start 06/19/17 at 00:30; Stop 07/08/17 at 16:16; Status DC Donepezil HCl (Aricept) 20 mg QHS PO Last administered on 06/30/17 19:35; Start 06/19/17 at 21:00; Stop 07/01/17 at 12:19; Status DC Lorazepam (Ativan) 0.5 mg DAILY PO Last administered on 06/26/17 07:57; Start 06/19/17 at 09:00; Stop 06/26/17 at 18:43; Status DC Lorazepam (Ativan) 0.5 mg PRN Q6HRS PRN PO ANXIETY / AGITATION Last administered on 07/07/17 17:18; Start 06/19/17 at 00:30; Stop 07/08/17 at 16:16 ; Status DC Megestrol Acetate (Megace) 40 mg BID PO Last administered on 06/29/17 08:06; Start 06/19/17 at 09:00; Stop 06/29/17 at 11:57; Status DC Mirtazapine (Remeron) 15 mg QHS PO Last administered on 07/07/17 19:41; Start 06/19/17 at 21:00; Stop 07/08/17 at 16:16; Status DC Quetiapine Fumarate (SEROquel) 25 mg BID92 PO Last administered on 06/20/17 14 :00; Start 06/19/17 at 09:00; Stop 06/20/17 at 18:26; Status DC Quetiapine Fumarate (SEROquel) 100 mg QHS PO Last administered on 07/07/17 19: 41; Start 06/19/17 at 21:00; Stop 07/08/17 at 16:16; Status DC Memantine (Namenda) 10 mg BID PO Last administered on 07/08/17 10:37; Start at 09:00; Stop 07/08/17 at 16:16; Status DC Acetaminophen (Tylenol) 650 mg TID PO Last administered on 07/08/17 09:00; Start 06/19/17 at 09:00; Stop 07/08/17 at 16:16; Status DC Finasteride (Proscar) 5 mg DAILY PO Last administered on 07/08/17 10:38; Start 06/19/17 at 09:00; Stop 07/08/17 at 16:16; Status DC Flecainide Acetate (Tambocor) 50 mg BID PO Last administered on 07/08/17 09:00 ; Start 06/19/17 at 09:00; Stop 07/08/17 at 16:16; Status DC Multivitamins/ Calcium (Thera-M Plus) 1 tab DAILY PO Last administered on 10:38; Start 06/19/17 at 09:00; Stop 07/08/17 at 16:16; Status DC Olanzapine (ZyPREXA ZYDIS) 2.5 mg PRN Q2HR PRN PO PSYCHOSIS Last administered on 06/25/17 12:07; Start 06/19/17 at 18:30; Stop 07/08/17 at 16:16; Status DC Quetiapine Fumarate (SEROquel) 25 mg TID@0900,1300,1700 PO Last administered on 07/01/17 08:44; Start 06/21/17 at 09:00; Stop 07/01/17 at 12:19; Status DC Divalproex Sodium (Depakote Sprinkles) 125 mg BID PO Last administered on 08:30; Start 06/24/17 at 11:30; Stop 06/27/17 at 18:35; Status DC Vitamin D (Vitamin D3) 50,000 unit WEEKLY PO Last administered on 07/03/17 08: 42; Start 06/26/17 at 09:00; Stop 07/08/17 at 16:16; Status DC Lorazepam (Ativan) 0.25 mg DAILY PO Last administered on 06/28/17 08:26; Start 06/27/17 at 09:00; Stop 06/28/17 at 23:00; Status DC Divalproex Sodium (Depakote Sprinkles) 125 mg TID PO Last administered on 12:36; Start 06/27/17 at 21:00; Stop 06/29/17 at 18:55; Status DC Megestrol Acetate (Megace) 40 mg BIDACBL PO Last administered on 07/08/17 10: 37; Start 06/30/17 at 07:30; Stop 07/08/17 at 16:16; Status DC Divalproex Sodium (Depakote Sprinkles) 125 mg DAILY PO Last administered on 09:27; Start 06/30/17 at 09:00; Stop 07/02/17 at 18:35; Status DC Divalproex Sodium (Depakote Sprinkles) 250 mg DAILY16 PO Last administered on 17:00; Start 06/30/17 at 16:00; Stop 07/02/17 at 18:35; Status DC Magnesium Citrate (Citroma) 296 ml 1X ONCE PO Last administered on 07/01/17 11:51; Start 07/01/17 at 10:00; Stop 07/01/17 at 10:01; Status DC Quetiapine Fumarate (SEROquel) 37.5 mg TID@0900,1300,1700 PO Last administered on 07/08/17 08:25; Start 07/01/17 at 13:00; Stop 07/08/17 at 16:16; Status DC Divalproex Sodium (Depakote Sprinkles) 250 mg DAILY PO Last administered on 08:42; Start 07/03/17 at 09:00; Stop 07/03/17 at 18:31; Status DC Divalproex Sodium (Depakote Sprinkles) 125 mg DAILY16 PO Last administered on 16:38; Start 07/03/17 at 16:00; Stop 07/03/17 at 18:31; Status DC Divalproex Sodium (Depakote Sprinkles) 250 mg HS PO Last administered on 19:31; Start 07/02/17 at 21:00; Stop 07/03/17 at 18:31; Status DC Divalproex Sodium (Depakote Sprinkles) 250 mg TID PO Last administered on 20:09; Start 07/03/17 at 21:00; Stop 07/06/17 at 20:23; Status DC Divalproex Sodium (Depakote Sprinkles) 375 mg TID PO Last administered on 10:39; Start 07/06/17 at 21:00; Stop 07/08/17 at 16:16; Status DC Docusate Sodium (Colace) 100 mg BID PO Last administered on 07/08/17 10:37; Start 07/07/17 at 21:00; Stop 07/08/17 at 16:16; Status DC Polyethylene Glycol (miraLAX) 17 gm DAILY PO Last administered on 07/08/17 09: 00; Start 07/08/17 at 09:00; Stop 07/08/17 at 16:16; Status DC Cephalexin HCl (Keflex) 500 mg TID PO Last administered on 07/08/17 10:37; Start 07/07/17 at 21:00; Stop 07/08/17 at 16:16; Status DC Active Scripts Active Reported Zyprexa Zydis (Olanzapine) 5 Mg Tab.rapdis 2.5 Mg PO PRN Q2HR PRN MDD 10 Depakote Sprinkle (Divalproex Sodium) 125 Mg Cap.sprink 375 Mg PO TID Miralax (Polyethylene Glycol 3350) 17 Gm Powd.pack 1 Packet PO DAILY Colace (Docusate Sodium) 100 Mg Capsule 1 Cap PO BID D3-50 (Cholecalciferol (Vitamin D3)) 50,000 Unit Capsule 1 Cap PO WEEKLY Keflex (Cephalexin) 500 Mg Capsule 1 Cap PO TID Seroquel (Quetiapine Fumarate) 100 Mg Tablet 100 Mg PO QHS Seroquel (Quetiapine Fumarate) 25 Mg Tablet 37.5 Mg PO TIDWMEALS Thera M Plus Tablet (Multivits,Ca,Minerals/Iron/FA) 1 Each Tablet 1 Tab PO DAILY Remeron (Mirtazapine) 15 Mg Tablet 15 Mg PO QHS Namenda Xr (Memantine Hcl) 28 Mg Cap.spr.24 28 Mg PO DAILY Flecainide Acetate 50 Mg Tablet 50 Mg PO BID Proscar (Finasteride) 5 Mg Tablet 5 Mg PO DAILY Ativan (Lorazepam) 0.5 Mg Tablet 0.5 Mg PO PRN Q6HRS PRN Megestrol Acetate 40 Mg Tablet 40 Mg PO BIDACBL Tylenol (Acetaminophen) 325 Mg Tablet 650 Mg PO TID Diagnosis: Problems: (1) Impulse control disorder (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
--- NOTE | 2017-07-09 00:46 | PN ---
DATE: 07/07/2017 This is a late entry 07/07/2017, covers elements not covered in my initial note of 07/07/2017. I met with the patient on evening of 07/07. Overall, the patient resisted with the assessment compliant with medications if they are hidden. Intermittently agitated, threatening. No CV, , pulmonary, eye, ENT system symptoms on review. Reliability poor. MENTAL STATUS EXAM: Oriented to himself. Insight, judgment, recent and remote memory, attention, concentration, fund of knowledge poor, consistent with his diagnosis mentioned in my initial note. PLAN: Continue psychotropics mentioned in my initial note. Depakote was increased. Labs to be checked on 07/09, since previous level was subtherapeutic at 41. Review of drug interactions, risk/benefit ratio favors no further changes yet. MAN Madelin SHABAZZ MD DR: RAYMUNDO/alex JOB#: [id number] / [id number]
--- NOTE | 2017-07-09 22:24 | DS ---
DATE OF DISCHARGE: 07/08/2017 DISCHARGE SUMMARY AND PSYCHIATRIC PROGRESS NOTE This is a late entry for 07/08/2017 and covers elements not covered in my initial note of 07/08/217. REASON FOR ADMISSION: Please refer to the admission history for details. Briefly, the patient is an 86-year-old male, referred to us from [facility] by his primary care physician, on account of increasing confusion, agitation, hitting staff. Reportedly, the patient is oriented x 1, was resistive with cares, threatening gestures towards peers. He had failed outpatient psychiatric interventions, referred for inpatient psychiatric stabilization. SIGNIFICANT FINDINGS AND CLINICAL COURSE: Following admission, the patient was seen daily individually by myself, followed medically per Dr. Brown/Dr. Vasquez. He was extremely confused, paranoid, psychotic, extremely aggressive, disruptive, resistive to cares. He was hitting, kicking, scratching at staff mainly during cares. Adjustments were made in his psychotropics and he seemed to be responding to a combination of Remeron 15 mg at bedtime, Ativan had been tapered and discontinued for the scheduled dosage and he was maintained on Ativan p.r.n., Namenda 10 b.i.d., Seroquel 37.5 mg t.i.d. and 100 mg at bedtime, Megace 40 mg twice a day, Zyprexa p.r.n., Depakote 375 mg t.i.d. Level was subtherapeutic at 41 at the lower dosage and repeat level was awaited. On 07/08/2017, he was found to be more confused, had a marked leukocytosis of 17.6. Lactic acid 3.3 and had a possible pneumonia and was transferred to the ICU per Dr. Vasquez. I talked to the patient's , Shantelle Waterman at [phone] on 07/08/2017, discussed the patient's problems, medical change and possibility of having him back on our unit once he was medically stable and if behaviors continued to be quite disruptive, unmanageable. This was a lengthy discussion. I answered her many questions and answers to many are unknown given his diagnosis of marked dementia. REVIEW OF SYSTEMS: Prior to discharge on 07/08/2017, no CV, , pulmonary, eye, ENT system symptoms on review. Reliability poor. MENTAL STATUS EXAM: He seemed more confused and apathetic consequent to general medical condition. Insight, judgment, recent and remote memory, attention, concentration, fund of knowledge poor, consistent with his diagnosis. This note covers elements not covered in my initial note of 07/08/2017. FINAL DIAGNOSES: Major neurocognitive disorder, Alzheimer, vascular with depression, delusion, behavioral disturbance; anxiety disorder, unspecified; impulse control disorder, unspecified. Rest unchanged including possible pneumonia, leukocytosis. DISCHARGE MEDICATIONS: Please refer to MRAD. DISCHARGE INSTRUCTIONS: Further psychiatric followup will be determined post medical stabilization in the ICU per Dr. Vasquez. Time for discharge day management is greater than 30 minutes. TONE SHABAZZ MD DR: RAYMUNDO/nts JOB#: [id number] / [id number]
== END 2017-07-08 13:50 | disposition short-term general hospital (02) | DRG 56 ==
LOC: ER 22:25 → GEROPSY 06-19 00:11
PROVIDERS: ADMIT Psychiatry & Neurology Psychiatry; ATTEND Psychiatry & Neurology Psychiatry
DX: G30.9 Alzheimer's disease, unspecified (principal); J18.9 Pneumonia, unspecified organism; F01.51 Vascular dementia, unspecified severity, with behavioral disturbance; E11.22 Type 2 diabetes mellitus with diabetic chronic kidney disease; I27.2 Other secondary pulmonary hypertension; I48.91 Unspecified atrial fibrillation; F02.81 Dementia in other diseases classified elsewhere, unspecified severity, with behavioral disturbance; E78.5 Hyperlipidemia, unspecified; N40.0 Benign prostatic hyperplasia without lower urinary tract symptoms; N18.9 Chronic kidney disease, unspecified; F32.9 Major depressive disorder, single episode, unspecified; F22 Delusional disorders; F41.9 Anxiety disorder, unspecified; F63.9 Impulse disorder, unspecified; I12.9 Hypertensive chronic kidney disease with stage 1 through stage 4 chronic kidney disease, or unspecified chronic kidney disease; Z66 Do not resuscitate; Z85.828 Personal history of other malignant neoplasm of skin; Z91.19 Patient's noncompliance with other medical treatment and regimen; Z95.0 Presence of cardiac pacemaker
CPT/HCPCS: 36415; 71010; 74000; 80053; 80061; 80164; 81001; 82306; 82607; 82947; 83036; 83540; 83550; 83605; 83735; 84436; 84443; 84480; 85007; 85025; 86592; 86593; 87040; 87086; 93005

== ENCOUNTER 2017-07-08 16:05 | Inpatient (IN) | payer MEDICARE ==
[~2017-07-08] VITALS: Ht 157.5 cm; Wt 55.8 kg
[~2017-07-08 16:05] MED LIST: ACET325T9 PO; CEPH-264 PO; CHOL500021 PO; DIVA125C PO; DOCU-109 PO; DONE10TA61 PO; FINA5TAB PO; FLEC50TA PO; LORA0.5T96 PO; MEGE40TA PO; MEMA28CA PO; MIRT15TA PO; MULT-638 PO; OLAN5TAB5 PO; POLY17PO5 PO; QUET100T4 PO; QUET25TA5 PO
[2017-07-08 16:15] VITALS: BP 93/56
[2017-07-08] MEDS ORDERED: VANCOMYCIN PER PHARMACY MC PRN ×2 (16:30→16:45)
[2017-07-08] MEDS ORDERED: IV NORMAL SALINE 500ML 500 ML IV ONE (16:30)
[2017-07-08] MEDS ORDERED: IV NORMAL SALINE 1,000ML 1,000 ML IV SCH (16:30)
[2017-07-08] MEDS ORDERED: LORazepam 0.5 MG TABLET PO PRN (16:30)
[2017-07-08] MEDS: QUEtiapine 25 MG TABLET. PO SCH (17:00)
[2017-07-08] MEDS ORDERED: METHYL SALICYLATE/MENTHOL TOPICAL OINTMENT 29GM TUBE. TP PRN (17:00)
--- NOTE | 2017-07-08 17:24 | NUR ---
Pharmacy Vancomycin Dosing Note S:Consulted to monitor and dose vancomycin started 07/08/17. O:ASHLEY RIVERA is a 87 year old M with Sepsis HCAP . Height: 5 feet, 2 inches Weight: 54.638893 kg Dorr Body Weight: 54.60 Adjusted Body Weight: 54.56 Dosing Weight: Actual Other Antibiotics: ZOSYN LABS: Last BUN: 36 Last Creatinine: 1.8 Creatinine Clearance: 23.1 Last WBC: 17.6 Last Platelets: 394 Vancomycin Dosing: Loading Dose: 1500 mg x1 Dosing Weight: Actual Target Trough: 15-20 A: Initial dosing is based on height, actual weight, renal function, and indication. P: 1. Give Vancomycin 1500mg IV initially, then Vancomycin 1000 mg IV q24h. 2. Follow up Trough level on 07/10/17 at 1730 3. Pharmacy will continue to monitor, follow and adjust therapy as needed. KARELY CORONADO, [facility] 07/08/17 [id number]
[2017-07-08] MEDS: PIPERACILLIN/TAZOBACTAM 2.25 GM in IV NORMAL SALINE 50ML 50 ML IV SCH (17:35)
[2017-07-08] MEDS: IV NORMAL SALINE 1,000ML 1,000 ML IV SCH (17:36)
--- NOTE | 2017-07-08 17:45 | NUR ---
Pt admitted to room [address] [facility]. Pt alert only to self. Wounds on RLL x2. See wound photos. Multiple scabs on patient. HR in 130's, ST. Pt does have pacemaker. Please see doc flowsheet for full assessment. Dr Vasquez aware of patients admission. IV already in place. Will continue to monitor.
[2017-07-08] MEDS ORDERED: VANCOMYCIN 1.5 GM in IV NORMAL SALINE 500ML 500 ML IV ONE (18:00)
--- NOTE | 2017-07-08 18:33 | HP ---
ADMIT DATE: 07/08/2017 HISTORY OF PRESENT ILLNESS: The patient is an 87-year-old male patient who was transferred from [facility] as he was noted to be extremely lethargic and his lab work showed that he has marked leukocytosis with a white cell count 17,600. His lactic acid was high at 3.3. Chest x-ray showed that he has increased left retrocardiac density and given altered mental status, leukocytosis, lactic acidosis, and the findings on the x-ray, the patient was transferred to [address] [place] [address] for treatment of his healthcare-associated pneumonia and was started on IV Levaquin, vancomycin as well as Zosyn to be adjusted according to his kidney function by the pharmacist. The patient himself is demented and does not really give any useful information. He normally is very aggressive, restless, agitated; however, he was noted to be extremely lethargic. PAST MEDICAL HISTORY: Significant for benign prostatic hypertrophy, atrial fibrillation, hyperlipidemia, chronic kidney disease, and pulmonary hypertension. PAST SURGICAL HISTORY: Unremarkable. FAMILY HISTORY: Unobtainable. SOCIAL HISTORY: He is a resident at [facility]. He apparently does not smoke, drink alcohol or use any recreational drugs. ALLERGIES: He is allergic to AMIODARONE. MEDICATIONS: He is currently on the following medications: Tylenol 650 mg p.o. q.4 hours. He was also on cephalexin 500 mg 3 times a day, cholecalciferol, vitamin D 50,000 international units once a week, divalproex sodium 375 mg 3 times a day, docusate sodium 100 mg twice a day, finasteride 5 mg daily, flecainide 50 mg twice a day, lorazepam 0.5 mg every 6 hours, Megace 40 mg twice a day, Namenda XR 28 mg once a day, mirtazapine 15 mg once a day, multivitamin with mineral 1 tablet once a day, olanzapine for Zyprexa Zydis 2.5 mg every 2 hours, polyethylene glycol 17 g daily p.r.n. for constipation, Seroquel 37.5 mg 3 times a day with meals, and Seroquel 100 mg at bedtime. REVIEW OF SYSTEMS: Unremarkable: PHYSICAL EXAMINATION: GENERAL: I examined him, he was resting slightly propped up in bed, in no apparent respiratory distress, slightly pale, but no jaundice, cyanosis, or thyromegaly. No jugular venous distension. No lower limb edema. VITAL SIGNS: His heart rate was 130, blood pressure was 110/60, temperature was 97.7, respiratory rate was 20, and oxygen saturation was 95% on room air. HEAD, EYES, EARS, NOSE, AND THROAT: Showed normocephalic, atraumatic. NECK: Supple. HEART: Showed normal first and second heart sounds with no gallop, rub or murmur. CHEST: Clear to auscultation. No crepitation or rhonchi. ABDOMEN: Distended, soft, and nontender. No guarding or rigidity. No organomegaly. Hernial orifices intact. Bowel sounds normal. NEUROLOGIC: He is very lethargic, but arousable. All cranial nerves intact. EXTREMITIES: He moves extremities without difficulty, although he is mostly bed bound. He has wounds to his right posterior aspect lower extremity with surrounding erythema for which he was started on Keflex yesterday. LABORATORY DATA: His lab work today showed a white cell count of 17,600, hemoglobin 13, hematocrit 39, MCV 96, and platelet count of 394,000. His chemistry showed a serum sodium 142, potassium 5.1, chloride 105, bicarbonate 25, anion gap of 12, BUN 42, creatinine 1.8, estimated GFR was 36 mL per minute. His glucose was 205. His lactic acid was 3.3, calcium was 9.6. Total bilirubin, AST, ALT, alkaline phosphatase were normal. His total protein was 7.3, albumin was 3.6. His urinalysis showed the urine was yellow, clear with a pH of 7, specific gravity of 1.020. There was trace of protein, negative for glucose, trace of ketones, small amount of blood, negative for nitrite, and leukocyte esterase with 3-5 rbc's, 1-4 wbc's, and very few bacteria. His chest x-ray showed that he has increased left retrocardiac density that may reflect atelectasis versus infiltrate in the appropriate clinical setting. He has a KUB, which showed that there is a 10 mm irregular calcific density in the left renal hilum, which could result in renal calculus. ASSESSMENT: In summary, this is an 87-year-old male patient who was transferred to [address] [place] [address] with altered mental, left lower lobe infiltrate, leukocytosis, and lactic acidosis. He was treated for healthcare-associated pneumonia with sepsis with Levaquin, vancomycin, and Zosyn to be adjusted by the pharmacist according to his kidney function, I will discontinue the Keflex for now. We will consult Dr. Downing to follow him in . LILI VALLE MD DR: BLAISE/alex JOB#: [id number] / [id number]
[2017-07-08 20:13] VITALS: BP 105/74
[2017-07-08] MEDS ORDERED: CEPHALEXIN 500 MG CAPSULE PO SCH (21:00)
[2017-07-08] MEDS: DIVALPROEX 125 MG CAP.SPRINK PO SCH (21:16)
[2017-07-08] MEDS: ACETAMINOPHEN 325 MG TABLET PO SCH (21:16)
[2017-07-08] MEDS: MIRTAZAPINE 15 MG TABLET PO SCH (21:16)
[2017-07-08] MEDS: QUEtiapine 100 MG TABLET. PO SCH (21:17)
[2017-07-08] MEDS: FLECAINIDE 50 MG TABLET. PO SCH (21:18)
[2017-07-08] MEDS: DOCUSATE SODIUM 100 MG CAPSULE PO SCH (21:20)
[2017-07-08] MEDS: MEMANTINE 10 MG TABLET. PO SCH (21:20)
[2017-07-08] MEDS ORDERED: PIPERACILLIN/TAZOBACTAM 2.25 GM in IV NORMAL SALINE 50ML 50 ML IV SCH (22:00)
[2017-07-08 23:32] VITALS: BP 119/77
[2017-07-09] MEDS: IV NORMAL SALINE 1,000ML 1,000 ML IV SCH ×2 (00:54→08:59)
[2017-07-09] MEDS: PIPERACILLIN/TAZOBACTAM 2.25 GM in IV NORMAL SALINE 50ML 50 ML IV SCH ×3 (00:54→18:03)
[2017-07-09 06:15] LABS: BASO % 0 % (0-3); EOS % 0 % (0-3); HEMATOCRIT 33.7 % (39.0-53.0); HEMOGLOBIN 11.5 g/dL (13.0-17.5); LYMPH % 8 % (24-48); MEAN CORPUSCULAR HEMOGLOBIN 33 pg (25-35); MEAN CORPUSCULAR HGB CONC 34 g/dL (31-37); MEAN CORPUSCULAR VOLUME 95 fL (79-100); MONO % 8 % (0-9); NEUT # 10.4 x10^3uL (1.8-7.7); NEUT % 84 % (31-73); PLATELET COUNT 290 x10^3/uL (140-400); RED BLOOD COUNT 3.53 x10^6/uL (4.30-5.70); WHITE BLOOD COUNT 12.4 x10^3/uL (4.0-11.0)
[2017-07-09 06:17] VITALS: BP 118/69
[2017-07-09 06:19] LABS: ALBUMIN 2.6 g/dL (3.4-5.0); ALBUMIN/GLOBULIN RATIO 0.7 (1.0-1.7); CALCIUM 8.2 mg/dL (8.5-10.1); CREATININE 1.4 mg/dL (0.7-1.3); GFR 48.2; TOTAL BILIRUBIN 0.5 mg/dL (0.2-1.0); TOTAL PROTEIN 6.2 g/dL (6.4-8.2)
[2017-07-09] MEDS ORDERED: MEGESTROL 40 MG TABLET. PO SCH (07:30)
[2017-07-09] MEDS: DOCUSATE SODIUM 100 MG CAPSULE PO SCH ×2 (08:52→21:28)
[2017-07-09] MEDS: QUEtiapine 25 MG TABLET. PO SCH ×3 (08:52→18:02)
[2017-07-09] MEDS: DIVALPROEX 125 MG CAP.SPRINK PO SCH ×3 (08:52→21:27)
[2017-07-09] MEDS: MULTIVITAMIN with MINERAL TABLET. PO SCH (08:52)
[2017-07-09] MEDS: MEMANTINE 10 MG TABLET. PO SCH ×2 (08:52→21:28)
[2017-07-09] MEDS: FINASTERIDE 5 MG TABLET PO SCH (08:52)
[2017-07-09] MEDS: FLECAINIDE 50 MG TABLET. PO SCH ×2 (08:53→21:28)
[2017-07-09] MEDS: ACETAMINOPHEN 325 MG TABLET PO SCH ×3 (08:53→21:27)
[2017-07-09] MEDS ORDERED: MEMANTINE HCL 28 MG PO SCH (09:00)
[2017-07-09] MEDS ORDERED: PNEUMOCOCCAL VAX SCREEN. MC ONE (09:00)
[2017-07-09] MEDS: POLYETHYLENE GLYCOL 3350 17 GM PACKET. PO SCH (09:00)
[2017-07-09] MEDS: IV RINGERS SOLUTION,LACTATED 1,000 ML IV SCH (11:05)
[2017-07-09 11:28] VITALS: BP 125/75
[2017-07-09] MEDS ORDERED: Influenza vaccine per PROTOCOL. MC PRN (13:15)
--- NOTE | 2017-07-09 13:15 | NUR ---
NSG NOTE; FLU VACCINE FLU VACCINE CONSENT GIVEN BY PT'S
--- NOTE | 2017-07-09 16:03 | NUR ---
MELINDA NOTE; AGITATED WITH COLUMBA WHITNEY Addendum: 07/09/17 at 1603 by ANA MARÍA DALLAS RN Amended: Links added.
--- NOTE | 2017-07-09 17:00 | NUR ---
Wound Care WOund care follow up for skin tears on RLE and R lower arm. Reoved old dressings, cleansed, measured and pictured wounds. Pt was sleeping throughout most of wound care visit so was able to take care of wounds without pt striking out at RN. Redressed R anterior leg and R dorsal arm with xeroform gauze and bordered foam. Dressed R posterior leg with aquacel ag and bordered foam. Change all dressings every 3 days and PRN for drainage. Pt is very combative while awake and unable to be educated on wound care. Discussed POC with RN. No other wounds found on full skin inspection. Will continue to follow for wound care.
[2017-07-09 18:57] VITALS: BP 146/74
--- NOTE | 2017-07-09 19:40 | NUR ---
NSG NOTE; FALL PT WAS HEARD TO FALL AND FOUND ON HIS FLOOR AT [address] SCHWARTZ WHO SAW THE END OF THE FALL AND STATED HE DID NOT HIT HIS HEAD. HE WAS RETURNED TO BED AND ASSESSED BY ME AND DR SCHWARTZ AND NOT FOUND TO HAVE ANY INJURIES. SHE DID NOT GIVE ANY NEW ORDERS AT THIS TIME
[2017-07-09] MEDS: VANCOMYCIN 1 GM in IV NORMAL SALINE 250ML 250 ML IV SCH (19:45)
[2017-07-09] MEDS: QUEtiapine 100 MG TABLET. PO SCH (21:27)
[2017-07-09] MEDS: MIRTAZAPINE 15 MG TABLET PO SCH (21:28)
[2017-07-09 23:00] VITALS: BP 136/68
[2017-07-10] MEDS: IV RINGERS SOLUTION,LACTATED 1,000 ML IV SCH (00:37)
[2017-07-10] MEDS: PIPERACILLIN/TAZOBACTAM 2.25 GM in IV NORMAL SALINE 50ML 50 ML IV SCH ×2 (00:37→12:14)
[2017-07-10 03:00] VITALS: BP 148/82
[2017-07-10 05:22] VITALS: BP 109/66
--- NOTE | 2017-07-10 05:28 | PN ---
DATE: PROBLEMS: 1. Left lower lobe infiltrate. 2. Altered mental status. 3. Sepsis with lactic acidosis, leukocytosis. 4. Healthcare-associated pneumonia. 5. Severe cognitive impairment. 6. Fall risk. 7. Multiple falls. 8. Atrial fibrillation. 9. Chronic kidney disease. 10. Pulmonary hypertension. 11. Severe protein calorie malnutrition. SUBJECTIVE: This is an 87-year-old who was transferred down from the [facility] for lethargy and leukocytosis, lactic acidosis and healthcare-associated left lower lobe infiltrate and dehydration. He has very poor intake upstairs. He has become a little bit more alert now with a couple liters of IV fluid. He is somewhat combative, but he is too weak to get himself out of bed. He has had some bouts of tachycardia, not sure, was not on the monitor, so did not know whether this is AFib or not. OBJECTIVE: VITAL SIGNS: Blood pressure 125/75, pulse 76, respirations 18, pulse ox 97% on room air, temperature is 98.2. He had a 99.7 temperature on 07/05/2017. Noted that he had some pulses 134, 137, 136. GENERAL: He is alert, but is not making eye contact. He is just mumbling, does not want to be touched. HEENT: His tongue was slightly dry. LUNGS: Clear. CARDIOVASCULAR: Regular rhythm and rate. ABDOMEN: Soft, nontender. EXTREMITIES: Without edema. MUSCULOSKELETAL: Very poor muscle tone, emaciated in appearance. LABORATORY DATA: Lactic acid is slowly coming down 2.3 this morning. Albumin is 2.6, BUN is 40, creatinine is 1.4. Upstairs, his BUN was 42, creatinine was 1.8. His white blood cell count was 17.6 up on the behavioral unit, now is down to 12.2. Blood cultures negative after 1 day. PLAN: Continue IV antibiotics, continue hydration, monitor him for oversedation from his antipsychotics. Discussed his care with his son and recommended that we might consider hospice at this point and PT and OT. CECILIO SCHWARTZ DO DR: ALOK/alex JOB#: [id number] / [id number]
[2017-07-10 06:37] LABS: ALBUMIN 2.3 g/dL (3.4-5.0); ALBUMIN/GLOBULIN RATIO 0.8 (1.0-1.7); CALCIUM 8.2 mg/dL (8.5-10.1); CREATININE 1.2 mg/dL (0.7-1.3); GFR 57.5; MAGNESIUM 2.1 mg/dL (1.8-2.4); POTASSIUM 4.3 mmol/L (3.5-5.1); TOTAL BILIRUBIN 0.4 mg/dL (0.2-1.0); TOTAL PROTEIN 5.3 g/dL (6.4-8.2)
[2017-07-10 06:38] LABS: BASO % 1 % (0-3); EOS # 0.1 x10^3/uL (0.0-0.7); EOS % 1 % (0-3); HEMATOCRIT 27.9 % (39.0-53.0); HEMOGLOBIN 9.6 g/dL (13.0-17.5); LYMPH # 0.9 x10^3/uL (1.0-4.8); LYMPH % 11 % (24-48); MEAN CORPUSCULAR HEMOGLOBIN 33 pg (25-35); MEAN CORPUSCULAR HGB CONC 34 g/dL (31-37); MEAN CORPUSCULAR VOLUME 95 fL (79-100); MONO # 0.6 x10^3/uL (0.0-1.1); MONO % 8 % (0-9); NEUT # 6.6 x10^3uL (1.8-7.7); NEUT % 80 % (31-73); PLATELET COUNT 232 x10^3/uL (140-400); RED BLOOD COUNT 2.92 x10^6/uL (4.30-5.70); WHITE BLOOD COUNT 8.2 x10^3/uL (4.0-11.0)
--- NOTE | 2017-07-10 08:26 | EKG ---
[address] [address] Test Date: 2017-07-09 Test Time: 11:19:38 Pat Name: ASHLEY RIVERA Department: Room: 124 A Gender: M Staff Midwife/Apprenticeship Director: ELIJAH : 1930 Requested By: CECILIO SCHWARTZ Order Number: [id number] Reading MD: Measurements Intervals [place] Rate: 78 P: -31 RI: 164 QRS: -27 QRSD: 172 T: 144 QT: 450 QTc: 517 Interpretive Statements SINUS RHYTHM NON SPECIFIC INTRAVENTRICULAR BLOCK QRS(T) CONTOUR ABNORMALITY CONSIDER ANTEROLATERAL MYOCARDIAL DAMAGE ABNORMAL ECG RI6.01 No previous ECG available for comparison
[2017-07-10] MEDS: POLYETHYLENE GLYCOL 3350 17 GM PACKET. PO SCH (09:30)
[2017-07-10] MEDS: MEMANTINE 10 MG TABLET. PO SCH ×2 (09:30→21:47)
[2017-07-10] MEDS: ACETAMINOPHEN 325 MG TABLET PO SCH ×3 (09:30→21:46)
[2017-07-10] MEDS: FINASTERIDE 5 MG TABLET PO SCH (09:30)
[2017-07-10] MEDS: QUEtiapine 25 MG TABLET. PO SCH ×3 (09:30→17:00)
[2017-07-10] MEDS: MULTIVITAMIN with MINERAL TABLET. PO SCH (09:30)
[2017-07-10] MEDS: FLECAINIDE 50 MG TABLET. PO SCH ×2 (09:30→21:47)
[2017-07-10] MEDS: DOCUSATE SODIUM 100 MG CAPSULE PO SCH ×2 (09:30→21:46)
[2017-07-10] MEDS: DIVALPROEX 125 MG CAP.SPRINK PO SCH ×3 (09:30→21:48)
[2017-07-10 11:00] VITALS: BP 145/71
--- NOTE | 2017-07-10 11:46 | RAD ---
AP chest, 07/10/2017: History: Pneumonia A supine AP view of the chest was obtained and compared to a study from 07/08/2017. A left-sided transvenous pacemaker is unchanged in position with 2 leads extending in the right heart. The heart is at the upper limits of normal in size. There is calcific plaquing and tortuosity of the thoracic aorta. The pulmonary vascularity is normal. There is minimal persistent linear scarring or atelectasis medially in the left base. No significant pulmonary consolidation is seen. There is no evidence of pleural fluid. IMPRESSION: No significant change since 07/08/2017.
[2017-07-10] MEDS: PANTOPRAZOLE IV PUSH 40 MG VIAL. IVP SCH (12:14)
--- NOTE | 2017-07-10 12:52 | NUR ---
RENAL DOSING: renal function has improved since admin, scr-1.2 today, creatinine clearance- 34.8mL/min, Zosyn frequency increased for improved renal function for treatment of pneumonia, (q8hrs to q6hrs for crcl 20-40mL/min)
[2017-07-10] MEDS ORDERED: PIPERACILLIN/TAZOBACTAM 2.25 GM in IV NORMAL SALINE 50ML 50 ML IV SCH (13:00)
--- NOTE | 2017-07-10 15:10 | NUR ---
IV antibiotic stopped at this time, site flushed and recovered. Pt has been extremely agitated and combative with cares. Upon trying to administered his morning medications that had been crushed and placed in chocolate pudding, pt was spitting them out. When PT/OT went to work with pt, he was highly combative. They were able to place pt on the toilet and then back in bed, but unsuccessful with any further therapies. Pt has not eaten anything this shift, when trying to assist with feedings, pt will hit and kick at staff. Pt will holler out at staff in a different language but does not use Mongolian when speaking. There have been two staff members in with this pt for all cares to keep the pt and staff safe. Will continue to monitor.
[2017-07-10 19:00] VITALS: BP 160/89
[2017-07-10] MEDS: MIRTAZAPINE 15 MG TABLET PO SCH (21:47)
[2017-07-10] MEDS: QUEtiapine 100 MG TABLET. PO SCH (21:48)
[2017-07-10 23:00] VITALS: BP 148/80
[2017-07-11] MEDS: VANCOMYCIN 1 GM in IV NORMAL SALINE 250ML 250 ML IV SCH (00:57)
[2017-07-11 05:00] VITALS: BP 164/84
[2017-07-11] MEDS: PIPERACILLIN/TAZOBACTAM 2.25 GM in IV NORMAL SALINE 50ML 50 ML IV SCH ×4 (05:57→06:00)
--- NOTE | 2017-07-11 06:08 | PN ---
DATE: 07/10/2017 PROBLEMS: 1. Left lower lobe infiltrate. 2. Altered mental status. 3. Advanced neurocognitive impairment. 4. Sepsis with lactic acidosis and leukocytosis. 5. Healthcare-associated pneumonia. 6. Fall risk. 7. Status post fall. 8. Atrial fibrillation. 9. Chronic kidney disease. 10. Pulmonary hypertension. 11. Severe protein calorie malnutrition. SUBJECTIVE: An 87-year-old who was transferred down from [facility] with lethargy and leukocytosis and lactic acidosis. He has been hydrated up nicely with IV fluids and IV antibiotics. He was never short of breath. In spite of hydration., he is still fairly lethargic and refuses to be changed and has to be fed currently. Apparently upstairs, he was feeding himself at one point. His p.o. intake is poor. PHYSICAL EXAMINATION: VITAL SIGNS: Blood pressure 145/71, temperature 97.5, pulse 69, respirations 18, pulse ox 96% on room air. GENERAL: He is easily arousable, but prefers to sleep. He is just mumbling and encouragement take food. HEENT: His tongue was moist. LUNGS: Clear. CARDIOVASCULAR: Slightly irregular rhythm and rate. EXTREMITIES: Cachectic with multiple bruising. LABORATORY DATA: His hemoglobin is 9.6, hematocrit 27.9, has dropped after hydration. White blood cell count has come down to 8.2. His sodium is 149, chloride 115 and his albumin is 2.3. PLAN: I discussed this case with son that I am not sure he will get much better even with the antibiotics and aggressive IV fluids. Discontinue the IV fluids for now. He will continue with the IV antibiotics. We will discuss with Dr. Downing and case management. I think he would benefit from hospice actually. CECILIO SCHWARTZ DO DR: ALOK/alex JOB#: [id number] / [id number]
--- NOTE | 2017-07-11 07:24 | NUR ---
Spoke with pharmacy and miss dosed the antibiotic to get the MAR back on track. Pt did not tolerate staff at bedside and was highly agitated with cares. Last antibiotic was hung at 0557 this am, but the wrong dose scanned as the 1800 bag was not given yesterday.
[2017-07-11 08:00] VITALS: BP 164/84
[2017-07-11] MEDS: POLYETHYLENE GLYCOL 3350 17 GM PACKET. PO SCH (09:00)
[2017-07-11] MEDS: ACETAMINOPHEN 325 MG TABLET PO SCH (09:07)
[2017-07-11] MEDS: MULTIVITAMIN with MINERAL TABLET. PO SCH (09:07)
[2017-07-11] MEDS: PANTOPRAZOLE IV PUSH 40 MG VIAL. IVP SCH (09:07)
[2017-07-11] MEDS: MEMANTINE 10 MG TABLET. PO SCH (09:08)
[2017-07-11] MEDS: FINASTERIDE 5 MG TABLET PO SCH (09:08)
[2017-07-11] MEDS: DOCUSATE SODIUM 100 MG CAPSULE PO SCH (09:08)
[2017-07-11] MEDS: DIVALPROEX 125 MG CAP.SPRINK PO SCH (09:09)
[2017-07-11] MEDS: QUEtiapine 25 MG TABLET. PO SCH (09:09)
--- NOTE | 2017-07-11 10:36 | NUR ---
Pt was taken to the shower and assisted x4. Shaved pt successfully, took pictures of wounds to right arm, and bilateral legs. IV site discontinued and no complications. Pt is dressed and ready to be discharged [facility]. In the shower, pt had a medium formed BM. Remains combative and agitated with cares, hollering out in different language.
--- NOTE | 2017-07-11 10:51 | NUR ---
Report called to DORA Chao at [facility]. [facility] notified of transport.
[2017-07-11 10:59] VITALS: BP 140/88
--- NOTE | 2017-07-11 11:30 | NUR ---
EMS here to transport pt. All belongings given to EMS. Pt safely assisted to the gurney and discharged now.
--- NOTE | 2017-07-11 22:14 | DS ---
DATE OF DISCHARGE: 07/11/2017 DISCHARGE DIAGNOSES: 1. Left lower lobe infiltrate. 2. Altered mental status. 3. Severe neurocognitive impairment. 4. Sepsis with lactic acidosis and leukocytosis. 5. Healthcare-associated pneumonia. 6. Fall risk. 7. Status post fall. 8. Atrial fibrillation. 9. Chronic kidney disease. 10. Pulmonary hypertension. 11. Severe protein calorie malnutrition. 12. Dehydration. HOSPITAL COURSE: An 87-year-old male who was transferred down from the [facility] with lethargy and leukocytosis and lactic acidosis, appeared to have left lower lobe infiltrate, but also was severely dehydrated. He continued to be combative and uncooperative with all of his care as well on . He almost required one-on-one intervention, but he was continued to be lethargic in spite of antibiotics and aggressive fluid resuscitation. Consultation with family and in lieu of all the antipsychotics that he has been on and the fact that his behavior has not improved and as to why he was admitted to the [facility] in the first place, I recommended to the family that he be placed on hospice and that adjustments in his medications continued at the nursing facility. Family in consultation with the social workers and I did have two discussions with his son, who is a surgeon agreed that hospice would probably be the most noel choice. DISCHARGE VITAL SIGNS: Blood pressure 140/88, pulse 78, respirations 14, temperature 98.5, pulse ox 95% on room air. Overall, condition is unchanged, remains sleepy, but easily arousable and continues to not want anyone to bother him for anything. He was placed in the shower, which required 5 people and will be discharged back to the nursing facility. His medications were reconciled and he will be going to hospice. CECILIO SCHWARTZ DO DR: ALOK/alex JOB#: [id number] / [id number]
[2017-07-15] MEDS ORDERED: CHOLECALCIFEROL (VITAMIN D3) 50,000 UNIT CAPSULE PO SCH (09:00)
== END 2017-07-11 11:30 | disposition hospice, inpatient (51) | DRG 871 ==
LOC: 1 SOUTH 16:05
PROVIDERS: ADMIT Internal Medicine; ATTEND Internal Medicine
DX: A41.9 Sepsis, unspecified organism (principal); J18.9 Pneumonia, unspecified organism; E43 Unspecified severe protein-calorie malnutrition; I27.2 Other secondary pulmonary hypertension; F03.90 Unspecified dementia, unspecified severity, without behavioral disturbance, psychotic disturbance, mood disturbance, and anxiety; I48.91 Unspecified atrial fibrillation; E86.0 Dehydration; E78.5 Hyperlipidemia, unspecified; N18.9 Chronic kidney disease, unspecified; N40.0 Benign prostatic hyperplasia without lower urinary tract symptoms; R29.6 Repeated falls; Z68.22 Body mass index [BMI] 22.0-22.9, adult; Z91.81 History of falling; Z88.8 Allergy status to other drugs, medicaments and biological substances; Z66 Do not resuscitate
CPT/HCPCS: 36415; 71010; 80053; 83605; 83735; 85025; 87641; 93005; C9113; J2543; J3370; J7040; J7050; J7120; J7030